=== PATIENT | female | born 1960 | race Caucasian/White ===

== ENCOUNTER → 2016-11-19 | Outpatient (CLI) | payer OTHER, BC ==
[~2016-11-19] VITALS: Ht 162.6 cm; Wt 79.0 kg
[~2016-11-19] MED LIST: ALPRAZOLAM 0.50.5 M1 PO; AMARYL4 MG PO; AMLODIPINE BESY10 MG PO; ASPIRIN325 PO; BIOTIN2500 MCG PO; CALCIUM 600 +1 EAC1 PO; CARAFATE 1 GM TA1 G1 PO; CEFDINIR300 MG PO; CRANBERRY200 MG PO; DRY EYE OMEGA1 EACH PO; Domperidone PO; FIBER GUMMIES1 EACH PO; FLEXERIL PO; FOLIC ACID 40400 MCG PO; GLUCOSAMINE CHONDROI PO; GLUCOSAMINE HC500 MG PO; HALCION0.25 MG PO; HYDROXYCHLOROQ200 M1 PO; IRON325 PO; LOSARTAN POTAS100 MG PO; METFORMIN HCL500 MG PO; METHADONE HCL 110 M1 PO; METHADONE HCL 110 MG PO; MIRALAX17 GM PO; MOVANTIK25 MG PO; OXYCODONE-ACET1 EAC2 PO; PERCOCET 10-321 EACH PO; PRAVACHOL20 MG PO; PRILOSEC20 MG PO; PROBIOTIC1 EAC1 PO; PROZAC20 MG PO; REGLAN10 MG PO; RESTASIS1 EACH OPHTHALMIC; ROPINIROLE HCL5 MG PO; SENNA PO; SPECTRAVITE SE1 EACH PO; SPECTRAVITE1 EAC1 PO; TRAVATAN Z2.5 ML OPHTHALMIC; VITAMIN B-12500 MCG PO; VITAMIN D 5050000 I1 PO; VITAMINC500 PO; VOLTAREN GEL 1100 G2
--- NOTE | ~2016-11-19 | HPC ---
[facility] [address] [address] PAIN MANAGEMENT CONSULTATION Name: ALEX VALENTIN Keesha Room #: REG [facility]#: [id number] Admission: 11/19/16 Attend Phys: Rehana Perkins MD Discharge: Date of : 60 Report #: [id number] THIS REPORT FOR: //name// CC: Rehana Aguirre MD DATE OF SERVICE: 11/19/2016 FOLLOWUP COMPLAINT: Things are going reasonably well. FOLLOWUP HISTORY: The patient is a 56-year-old female who has been followed in the pain clinic because of chronic pain involving the lumbar area. 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 She finds that her opioid medications are helpful and able her to engage in activities she would not be able to without their use. She continues to have pain and discomfort in the lower back, bilateral shoulders, knees, and joints in her hands. She rates her pain as a 6/10. She notes that there is a burning, soreness, tenderness and aching sensation present. Pain is exacerbated by walking, shopping, prolonged standing. Notes that her pain improves with use of ice packs, back brace and when lying on her left side with pillows popped underneath. PHYSICAL EXAMINATION: Blood pressure is 142/75, pulse 95, respiratory rate 14, room air saturation 95%. The patient's BMI is 29. She has not fallen since we saw her last. She states that she has taken her medications as prescribed. IMPRESSION: 1. Kyphoplasty in the recent past with improvement in her back pain. 2. Lumbar radicular pain secondary to failed back syndrome, stable with current medical regimen. 3. The patient feels stable regarding the gastrointestinal complaints that she had after an episode of Clostridium difficile. RECOMMENDATION: We will continue with her current medical regimen. A script for methadone 10 mg 1 p.o. t.i.d., Percocet had been written. The patient will call us if she has any problems with her medications. We would like to thank you for letting us participate in her care. We hope she continues to improve. <ELECTRONICALLY SIGNED> By: Rehana Perkins MD 12/07/16 1018 [id number] [id number] Rehana Perkins MD /nt
[2016-11-19 11:12] VITALS: BP 142/75
== END | disposition home or self-care (01) ==
LOC: PAIN 07:17
DX: M54.16 Radiculopathy, lumbar region (principal); G89.29 Other chronic pain; M96.1 Postlaminectomy syndrome, not elsewhere classified; Z98.890 Other specified postprocedural states; Z87.891 Personal history of nicotine dependence

== ENCOUNTER 2016-12-24 17:14 | Inpatient (IN) | payer OTHER, BC ==
[~2016-12-24] VITALS: Ht 162.6 cm; Wt 76.7 kg
--- NOTE | ~2016-12-24 | H ---
[facility] [place] [address] [address] [place] [address] HISTORY AND PHYSICAL Name: ALEX VALENTIN Keesha Room #: 447-P [facility] IN M.R.#: [id number] Admission: 12/24/16 Attend Phys: Yvan Aguirre MD Discharge: 12/27/16 Date of : 60 Report #: [id number] THIS REPORT FOR: //name// CC: Yvan Aguirre DATE OF SERVICE: 12/24/2016 ADDENDUM The note from 12/24/2016, the report number is [id number], Make addition of physical exam to this note. PHYSICAL EXAMINATION: GENERAL: The patient was awake. She was somewhat drowsy, but responsive to questions and commands. She was oriented to person, place and time. HEENT: Mucous membranes are moist. NECK: Supple, without adenopathy, thyromegaly or bruits. CHEST: Clear to auscultation. CARDIOVASCULAR: She has a regular rhythm without murmur. ABDOMEN: Soft, no masses. Bowel sounds are active. EXTREMITIES: Showed no edema. Pulses were intact. By: [id number] Yvan Aguirre MD /nt
--- NOTE | ~2016-12-24 | H ---
[facility] [place] [address] HISTORY AND PHYSICAL Name: BARBIEALEX L Room #: 447-P [facility] ..#: [id number] Admission: 12/24/16 Attend Phys: Yvan Aguirre MD Discharge: 12/27/16 Date of : 60 Report #: [id number] THIS REPORT FOR: //name// CC: Yvan Aguirre DATE OF SERVICE: 12/25/2016 CHIEF COMPLAINT: Hypoxia, back pain and left arm pain. HISTORY OF PRESENT ILLNESS: The patient is a 56-year-old female who was seen in the outpatient sitting for a kyphoplasty of her lumbar compression fracture after a fall. Post-procedure, she was somewhat hypoxic and sedated and anesthesiologist did not feel comfortable sending her home due to her sedation effect. She lives independently, did not have any support at home. The patient was therefore kept overnight for observation. She was placed on continuous oximetry. She does have home oxygen chronically. She did well overnight with no complications. Her status was stable for discharge to home on 12/25/2016. She will go home on her home medications of Plaquenil 200 mg a day, Flexeril 10 mg p.r.n., Pravachol 20 mg a day, amlodipine 5 mg b.i.d., losartan 50 mg b.i.d., aspirin 325 mg a day, Voltaren gel, methadone 10 mg t.i.d., oxycodone 10/325 p.r.n. pain, Prozac 40 mg daily, Xanax 0.5 mg t.i.d., calcium plus D daily, probiotic daily, senna daily, Carafate 1 gram q.i.d. She will be seen on a p.r.n. basis, activities as tolerated and she will resume her home oxygen that she currently has. <ELECTRONICALLY SIGNED> By: Yvan Aguirre MD 12/28/16 1407 1033 1136 Yvan Aguirre MD /nt
[2017-01-17] MEDS ORDERED: METHADONE HCL 110 MG PO (08:22)
[2017-01-17] MEDS ORDERED: PERCOCET 10-321 EACH PO (08:22)
== END 2016-12-27 16:46 | disposition home health service (06) | DRG 516 ==
LOC: 4S 17:14
DX: M48.56XA Collapsed vertebra, not elsewhere classified, lumbar region, initial encounter for fracture (principal); S42.302A Unspecified fracture of shaft of humerus, left arm, initial encounter for closed fracture; R09.02 Hypoxemia; G47.30 Sleep apnea, unspecified; W18.39XA Other fall on same level, initial encounter; Y93.89 Activity, other specified; Y92.89 Other specified places as the place of occurrence of the external cause; Y99.8 Other external cause status; Z88.1 Allergy status to other antibiotic agents; Z88.2 Allergy status to sulfonamides; Z88.8 Allergy status to other drugs, medicaments and biological substances; Z79.899 Other long term (current) drug therapy; Z28.21 Immunization not carried out because of patient refusal
CPT/HCPCS: 10100; 62110; 62900; 70005; 95113

== ENCOUNTER → 2017-01-17 | Outpatient (CLI) | payer OTHER, BC ==
[~2017-01-17] VITALS: Ht 162.6 cm; Wt 78.0 kg
--- NOTE | ~2017-01-17 | HPC ---
[facility] [address] [address] PAIN MANAGEMENT CONSULTATION Name: ALEX VALENTIN Keesha Room #: REG [facility]#: [id number] Admission: 01/17/17 Attend Phys: Rehana Perkins MD Discharge: Date of : 60 Report #: [id number] THIS REPORT FOR: //name// CC: Rehana Aguirre MD DATE OF SERVICE: 01/17/2017 FOLLOWUP COMPLAINT: "My arm is still healing. I have had some pain in my right calf." FOLLOWUP HISTORY: The patient is a 56-year-old female who has been followed in the pain clinic because of failed back syndrome and lumbar radiculopathy. As you may recall recently, she fell and fractured her left humerus. She continues to wear the sling with her arm in place. She states that it is improving. She is undergoing physical therapy to increase her range of motion. She has pain in the right lower leg. She has been walking with a cane. Note, she has noted increased pain for about 2 weeks. She has noted some swelling in her lower extremity. It is reddened as compared to the left side. She feels that the pain is pretty uncomfortable. She states that she is being seen by a vascular surgeon. She has some difficulty explaining what it is that he is going to do for her and what her problem is. PHYSICAL EXAMINATION: Blood pressure 124/69, pulse 96, respiratory rate 16, room air saturation 95%. The patient's height 5 feet 4 inches, weight 78 kilograms. BMI is 29.5. The patient has fallen in the last 3 months. She fell after getting entangled in a leash on her dog. She is having some difficulty walking because of increased pain in the right gastrocnemius muscle. She notes increased pain and discomfort to light touch along the lateral wall of her calf. She has some increased pain in the right popliteal area compared to that on the right. She has some redness in the lower extremity to the mid portion of her calf. There is +2 pitting edema at the level of her ankle. IMPRESSION: 1. Pain in the right leg lower extremity with increased swelling, increased pain, difficulty ambulating, some soreness in the right popliteal area. 2. Left humeral fracture, nondisplaced and healing. The patient is undergoing physical therapy. 3. Swelling in the right lower extremity, need to rule out deep venous thrombosis. The patient will be taken to the Emergency Room for evaluation. RECOMMENDATIONS: A script for her medications of oxycodone 10/325 one p.o. q. 6 hours p.r.n. pain and methadone 10 mg 1 p.o. t.i.d. [place] [address] PAIN MANAGEMENT CONSULTATION Name: ALEX VALENTIN [facility] [id number] Admission: 01/17/17 Attend Phys: Rehana Perkins MD Discharge: Date of : 60 Report #: [id number] call us if she has any problems with her medications. We would like to thank you for letting us participate in her care. We hope she continues to improve. By: 1418 1525 Rehana Perkins MD /nt
== END ==
LOC: PAIN 06:15
DX: M54.16 Radiculopathy, lumbar region (principal); E11.9 Type 2 diabetes mellitus without complications; I10 Essential (primary) hypertension; G43.909 Migraine, unspecified, not intractable, without status migrainosus; F41.8 Other specified anxiety disorders; F32.9 Major depressive disorder, single episode, unspecified; E78.5 Hyperlipidemia, unspecified; Z90.710 Acquired absence of both cervix and uterus; Z86.73 Personal history of transient ischemic attack (TIA), and cerebral infarction without residual deficits; Z79.4 Long term (current) use of insulin; Z79.82 Long term (current) use of aspirin; Z87.891 Personal history of nicotine dependence; Z85.828 Personal history of other malignant neoplasm of skin; Z85.820 Personal history of malignant melanoma of skin

== ENCOUNTER → 2017-02-25 | Outpatient (CLI) | payer OTHER, BC ==
[~2017-02-25] VITALS: Ht 162.6 cm; Wt 74.4 kg
[~2017-02-25] MED LIST changes: +MEDROLDOSEPACK PO
--- NOTE | ~2017-02-25 | HPC ---
[facility] [address] [address] PAIN MANAGEMENT CONSULTATION Name: ALEX VALENTIN Keesha [id number] Admission: 02/25/17 Attend Phys: Rehana Perkins MD Discharge: Date of : 60 Report #: [id number] THIS REPORT FOR: //name// CC: Rehana Aguirre MD DATE OF SERVICE: 02/25/2017 FOLLOWUP COMPLAINT: Here for medication renewal. FOLLOWUP HISTORY: The patient is a 56-year-old female who has been followed in the pain clinic because of lumbar radicular pain secondary to failed back syndrome. She also suffers from left arm pain status post left humeral fracture. It was nondisplaced. She has now been able to take off the arm support. She is trying to increase its range of motion. It is somewhat limited in relation to the contralateral side. She rates her pain as a 6-7 today. She continues to have some pain in the cervical spine left side as well as in the low back area. IMPRESSION: 1. L4-L5 fusion 2008 with failed back syndrome. 2. History of compression fracture status post lifting a parcel at home. The patient has undergone kyphoplasty at the L3 area. 3. Left humeral fracture, improved, trying to increase range of motion. 4. History of migraines, history of anxiety/depression, use of tobacco. 5. History of arthritis, treated by a shower doors and panels fabricator. RECOMMENDATION: We discussed treatment options with the patient. At this juncture, she has noted some worsening of her pain in the hands as well as generalized pain in her joints. She may see her shower doors and panels fabricator in the near future. We will give her a Medrol Dosepak to take in the interim if she should feel that is necessary. A script for her medications had been written. The patient has been given information regarding [facility]. She will call us if she has any problems with her medications. We would like to thank you for letting us participate in her care. We hope she continues to improve. <ELECTRONICALLY SIGNED> By: Rehana Perkins MD 03/04/17 0851 1236 [id number] Rehana Perkins MD /nt
[2017-02-25 11:17] VITALS: BP 146/77
== END | disposition home or self-care (01) ==
LOC: PAIN 07:23
DX: M54.16 Radiculopathy, lumbar region (principal); G43.909 Migraine, unspecified, not intractable, without status migrainosus; F41.9 Anxiety disorder, unspecified; F32.9 Major depressive disorder, single episode, unspecified; Z87.891 Personal history of nicotine dependence; M19.90 Unspecified osteoarthritis, unspecified site

== ENCOUNTER → 2017-03-30 | Outpatient (CLI) | payer OTHER, BC ==
[~2017-03-30] VITALS: Ht 162.6 cm; Wt 74.6 kg
--- NOTE | ~2017-03-30 | HPC ---
[facility] [place] [address] [address] PAIN MANAGEMENT CONSULTATION Name: BARBIEALEX Keesha Room #: [facility] [id number] Admission: 03/30/17 Attend Phys: Rehana Perkins MD Discharge: Date of : 60 Report #: [id number] THIS REPORT FOR: //name// CC: Rehana Aguirre MD DATE OF SERVICE: 03/30/2017 DATE OF SERVICE: 03/30/2017. PRIMARY CARE PHYSICIAN: Yvan Aguirre MD FOLLOWUP COMPLAINT: The pain improved after the Medrol Dosepak. FOLLOWUP HISTORY: The patient is a 56-year-old female who has been followed in the pain clinic because of chronic pain. She suffered from lumbar radicular pain secondary to failed back syndrome. She also is recuperating from a left shoulder humeral fracture. She notes that it continues to improve. She continues to try to move it through its range of motions. She used a Medrol Dosepak at the last visit. She has noted some improvement in her pain and discomfort. She rates her discomfort as 4/10 at this juncture. Notes the pain walking, standing for long periods of time can still be problematic. She finds that ice packs and wearing a back brace have been helpful. She has difficulty lying on her left side secondary to fracture of the left humeral shaft. She feels that her medications continue to be helpful. She has not had any side effects from the medications. She feels that they enable her to continue to engage in activities of daily living, she without them. She states that her medications are kept in a guarded area. IMPRESSION: 1. Lumbar fusion L4-L5 in 2008, now with failed back syndrome. 2. History of compression fracture, status post lifting up a parcel at home. The patient has undergone a kyphoplasty at the L3 area. 3. Left humeral fracture, continues to improve. The patient continues to increase its range of motion. 4. History of migraine, anxiety/depression and continued tobacco use. 5. 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 RECOMMENDATIONS: We will continue with her current medical regimen. We have discussed the need for compliance with the new CDC recommendations. We will decrease her methadone from 10 mg p.o. t.i.d. to 10 mg b.i.d. We will continue with oxycodone 10 mg 1 p.o. q.i.d. The patient will call us if she has any problems with her medications. [address] [address] PAIN MANAGEMENT CONSULTATION Name: BARBIEALEX Keesha Room #: REG [facility]#: [id number] Admission: 03/30/17 Attend Phys: Rehana Perkins MD Discharge: Date of : 60 Report #: [id number] We would like to thank you for letting us participate in her care. We hope she continues to improve. By: 1113 1753 MD paula Gold
[2017-03-30 10:16] VITALS: BP 134/79
== END ==
LOC: PAIN 06:15
DX: M54.16 Radiculopathy, lumbar region (principal); G43.909 Migraine, unspecified, not intractable, without status migrainosus; F41.9 Anxiety disorder, unspecified; F32.9 Major depressive disorder, single episode, unspecified; M19.90 Unspecified osteoarthritis, unspecified site; I10 Essential (primary) hypertension; Z87.891 Personal history of nicotine dependence

== ENCOUNTER → 2017-04-27 | Outpatient (CLI) | payer OTHER, BC ==
[~2017-04-27] VITALS: Ht 160 cm; Wt 75.2 kg
[~2017-04-27] MED LIST changes: +FOSAMAX 70 MG T70 MG PO
--- NOTE | ~2017-04-27 | HPC ---
[facility] [address] [place] [address] PAIN MANAGEMENT CONSULTATION Name: ALEX VALENTIN Keesha Room #: REG [facility].#: [id number] Admission: 04/27/17 Attend Phys: Rehana Perkins MD Discharge: Date of : 60 Report #: [id number] THIS REPORT FOR: //name// CC: Rehana Aguirre MD DATE OF SERVICE: 04/27/2017 FOLLOWUP COMPLAINT: Here for medication refill and pain in the low back, left side. FOLLOWUP HISTORY: The patient is a 56-year-old female who has been followed in the pain clinic because of chronic pain. As you recall, she has been experiencing pain and discomfort in the low back, left side; knees and had some GI complaints as well. At this juncture, she rates her pain as a 5/10. She notes that the pain is exacerbated by the usual activities of daily living, walking and standing for long periods of time, and finds that her medications are helpful. She also uses ice packs to the affected area. She feels that the methadone and oxycodone enable her to engage in activities she would not be able to without their use. She denies having any problems with her social life. She would like to have her medications renewed. She keeps her medications in a guarded environment. PHYSICAL EXAMINATION: Blood pressure is 138/87, pulse 82, respiratory rate 20, room air saturation 99, height 5 feet 3 inches, weight 165 pounds, BMI is 29. The patient has not fallen since we saw her last. Her arm continues to heal from the fracture. She appears to have normal speech. Her outlook seems positive. IMPRESSION: 1. History of lumbar radicular pain with failed back syndrome, status post surgery in 2008. 2. History of compression fractures in lower back. 3. History left humerus fracture, stable. 4. History of migraines/anxiety/depression, continues to smoke cigarettes and has been encouraged to stop. 5. Rheumatoid arthritis. RECOMMENDATIONS: We will proceed with renewal of the patient's current medical regimen of methadone and oxycodone. She will call us if she has any problems [facility] [address] [place] [address] PAIN MANAGEMENT CONSULTATION Name: ALEX VALENTIN Room #: REG [facility]#: [id number] Admission: 04/27/17 Attend Phys: Rehana Perkins MD Discharge: Date of : 60 Report #: [id number] with her medications. We would like to thank you for letting us participate in her care. We hope she continues to improve. By: 0825 2134 Rehana Perkins MD /
[2017-04-27 09:17] VITALS: BP 138/87
== END | disposition home or self-care (01) ==
LOC: PAIN 06:48
DX: M54.5 Low back pain (principal); M54.16 Radiculopathy, lumbar region; G43.909 Migraine, unspecified, not intractable, without status migrainosus; F41.9 Anxiety disorder, unspecified; F32.9 Major depressive disorder, single episode, unspecified; F17.210 Nicotine dependence, cigarettes, uncomplicated; M06.9 Rheumatoid arthritis, unspecified; Z87.81 Personal history of (healed) traumatic fracture

== ENCOUNTER → 2017-05-25 | Outpatient (CLI) | payer OTHER, BC ==
[~2017-05-25] VITALS: Ht 160 cm; Wt 74.4 kg
[~2017-05-25] MED LIST changes: -FOSAMAX 70 MG T70 MG PO
--- NOTE | ~2017-05-25 | HPC ---
[facility] [address] [place] [address] PAIN MANAGEMENT CONSULTATION Name: ALEX VALENTIN Keesha Room #: REG [facility]#: [id number] Admission: 05/25/17 Attend Phys: Rehana Perkins MD Discharge: Date of : 60 Report #: [id number] THIS REPORT FOR: //name// CC: Rehana Aguirre MD DATE OF SERVICE: 05/25/2017 FOLLOWUP COMPLAINT: Here for medication renewal. FOLLOWUP HISTORY: The patient is a 56-year-old female who has been followed in the pain clinic because of chronic pain. She has had a back fusion at L4-L5 in 2008 and suffers from failed back syndrome. She also has had a compression fracture recently in the L3 area. She notes some problems with easy bruising on her forearms, left and right. This is oftentimes exacerbated by her dog, which jumps up on to her arms. Feels that her migraine headaches are reasonably controlled at this juncture with her current medical regimen. She keeps her medications in a controlled environment. PHYSICAL EXAMINATION: Blood pressure is 163/93, pulse 93, respiratory rate 16, room air saturation 96%. Height 5 feet 3 inches, weight 74 kilograms. BMI is 29.1. The patient has some bruises on her left and right forearm. We have discussed possibility of getting some sweat bands like the athletes used to place on their forearms. Therefore, when her dog jumps upon there, she may find that she will get less trauma to her forearms given that her skin is somewhat thinned. IMPRESSION: 1. Lumbar fusion at L4-L5 in 2008, with failed back syndrome. 2. Compression fracture of the back at L3-L4 this year. 3. Left humerus fracture, left arm stable and range of motion continues to increase, patient is not wearing a brace of any sort. 4. History of migraines/anxiety/depression, continues to use tobacco. 5. 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 RECOMMENDATIONS: We will continue with her current medication regimen and a script for methadone 10 mg 1 p.o. t.i.d. to b.i.d. has been provided. Oxycodone 10 mg 1 p.o. q.i.d. has been given. The patient will call us if she has any problems with her medications. We would like to thank you for letting us participate in her care. We hope she continues to improve. By: 1624 1756 Rehana Perkins MD /chapo
[2017-05-25 10:16] VITALS: BP 163/93
== END | disposition home or self-care (01) ==
LOC: PAIN 07:27
DX: M96.1 Postlaminectomy syndrome, not elsewhere classified (principal); G89.29 Other chronic pain; S32.030D Wedge compression fracture of third lumbar vertebra, subsequent encounter for fracture with routine healing; S42.212D Unspecified displaced fracture of surgical neck of left humerus, subsequent encounter for fracture with routine healing; I73.9 Peripheral vascular disease, unspecified; M19.90 Unspecified osteoarthritis, unspecified site; G43.909 Migraine, unspecified, not intractable, without status migrainosus; F32.89 Other specified depressive episodes; F41.8 Other specified anxiety disorders; F17.210 Nicotine dependence, cigarettes, uncomplicated; Z98.890 Other specified postprocedural states; X58.XXXD Exposure to other specified factors, subsequent encounter; Z88.2 Allergy status to sulfonamides; Z88.8 Allergy status to other drugs, medicaments and biological substances; Z79.899 Other long term (current) drug therapy

== ENCOUNTER → 2017-06-29 | Outpatient (CLI) | payer OTHER, BC ==
[~2017-06-29] VITALS: Ht 160 cm; Wt 74.8 kg
[~2017-06-29] MED LIST changes: +FOSAMAX 70 MG T70 MG PO
--- NOTE | ~2017-06-29 | HPC ---
[facility] [address] [address] PAIN MANAGEMENT CONSULTATION Name: BARBIEALEX L Room #: REG [facility]#: [id number] Admission: 06/29/17 Attend Phys: Rehana Perkins MD Discharge: Date of : 60 Report #: [id number] THIS REPORT FOR: //name// CC: Rehana Aguirre DATE OF SERVICE: 06/29/2017 FOLLOWUP HISTORY: The patient is a 56-year-old female who has been followed in the pain clinic because of chronic low back pain. 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 She continues to have pain, which is quite problematic. She seems to be recovering well from her left humerus fracture. She is now having problems with her GI tract. As you recall, she had C. difficile problems in the past. She has some problems with possibility of a urinary tract infection. She has been given some antibiotics for this. She states that she is taking probiotics daily. She is not feeling too well today. She has recently seen her primary care physician. PHYSICAL EXAMINATION: Blood pressure 136/80, pulse 95, respiratory rate 20, room air saturation 97%. Height 5 feet 3 inches, weight 164 pounds, BMI is 29. She has not fallen since we saw her last. She does feel that she is having some GI disturbances. She has been treated for her urinary tract infection/GI track problems. IMPRESSION: 1. Gastrointestinal discomfort, following up with her primary physician. 2. Lumbar fusion L4-5 in 2008 with failed back syndrome. 3. History of compression fractures in the lower portion of her back this year. 4. Left humerus fracture, stable. 5. History of migraine/anxiety/depression. Continue to use tobacco. 6. Arthritis treated by her transportation maintenance operator. RECOMMENDATIONS: We have discussed her treatment options. We will continue with her use of methadone as well as oxycodone. She will follow up with her primary physician. If she notes any worsening of her condition, she should seek medical treatment given that she had C. difficile problems in the past. We would like to thank you for letting us participate in her care. We hope she continues to improve. By: 1322 0541 Rehana Perkins MD /
[2017-06-29 10:20] VITALS: BP 136/80
== END | disposition home or self-care (01) ==
LOC: PAIN 07:22
DX: M43.27 Fusion of spine, lumbosacral region (principal); Z87.81 Personal history of (healed) traumatic fracture; G43.909 Migraine, unspecified, not intractable, without status migrainosus; F41.9 Anxiety disorder, unspecified; F32.9 Major depressive disorder, single episode, unspecified; F17.290 Nicotine dependence, other tobacco product, uncomplicated; M19.90 Unspecified osteoarthritis, unspecified site

== ENCOUNTER → 2017-08-12 | Outpatient (CLI) | payer OTHER, BC ==
[~2017-08-12] VITALS: Ht 160 cm; Wt 76.4 kg
--- NOTE | ~2017-08-12 | HPC ---
[facility] [address] [address] PAIN MANAGEMENT CONSULTATION Name: BARBIEALEX L Room #: REG [facility]#: [id number] Admission: 08/12/17 Attend Phys: Rehana Perkins MD Discharge: Date of : 60 Report #: [id number] THIS REPORT FOR: //name// CC: Rehana Aguirre MD DATE OF SERVICE: 08/12/2017 FOLLOWUP COMPLAINT: "I have hurt my right leg and hit it on a bumper. I got 10 stiches." FOLLOWUP HISTORY: The patient is a 56-year-old female who has been followed in the pain clinic. As you recall, she has had unfortunate few months. She walked around her car. She hit her leg right in the area of the tibia, a cut was noted. She states she received 10 stitches in this area. She has also been having some problems and been placed on antibiotics. She has had some urinary tract infection. She feels overall things are going reasonably well, but has some concerns with the use of antibiotics. As you recall, she suffered from Clostridium difficile. PHYSICAL EXAMINATION: Blood pressure 156/76, pulse 94, respiratory rate 16, room air saturation 97%. Height 5 feet 3 inches, weight 168 pounds, BMI is 29. The patient has a gauze over the right anterior tibial area. The patient states that there are stitches underneath. She has a healing lesion about 3 inches below this area. She states that she has had some stitches in that area as well and it is heal reasonably well. There are some crusts in this area. She has a number of Band-Aids on her arms. As you recall, she has significantly thin skin and her dog jumps up on her as well causing skin blemishes. IMPRESSION: 1. Lumbar radiculopathy L4-L5 secondary to failed back syndrome. 2. New lesion in the right anterior tibial area. Status post 10 stitches placed. 3. Left humerus fracture, stable. 4. History of migraine/anxiety/depression, continues to use tobacco. 5. Osteoarthritis, treated by her clock repairer. 6. Urinary tract infection, treated with antibiotics. The patient will monitor her systems for possible Clostridium difficile symptomatology. RECOMMENDATION: We will renew her medications. A script for Percocet and methadone have been written. She will continue to monitor the area of the new lesion on her anterior tibial area. We explained that if it starts to look problematic, she should seek medical attention. [place] [address] PAIN MANAGEMENT CONSULTATION Name: ALEX VALENTIN Room #: REG [facility] Angelica#: [id number] Admission: 08/12/17 Attend Phys: Rehana Perkins MD Discharge: Date of : 60 Report #: [id number] We would like to thank you for letting us participate in her care. We hope she continues to improve. By: 1428 0343 Rehana Perkins MD /VIVIENNE
[2017-08-12 09:16] VITALS: BP 156/76
== END | disposition home or self-care (01) ==
LOC: PAIN 08-05 07:23
DX: M54.16 Radiculopathy, lumbar region (principal); M96.1 Postlaminectomy syndrome, not elsewhere classified; R22.41 Localized swelling, mass and lump, right lower limb; G43.909 Migraine, unspecified, not intractable, without status migrainosus; F41.8 Other specified anxiety disorders; F32.89 Other specified depressive episodes; M19.90 Unspecified osteoarthritis, unspecified site; Z87.81 Personal history of (healed) traumatic fracture; Z87.718 Personal history of other specified (corrected) congenital malformations of genitourinary system; Z87.891 Personal history of nicotine dependence; Z88.2 Allergy status to sulfonamides

== ENCOUNTER → 2017-10-14 | Outpatient (CLI) | payer OTHER, BC ==
[~2017-10-14] VITALS: Ht 160 cm; Wt 73.5 kg
--- NOTE | ~2017-10-14 | HPC ---
[facility] [address] [place] [address] PAIN MANAGEMENT CONSULTATION Name: ALEX VALENTIN Room #: REG [facility].#: [id number] Admission: 10/14/17 Attend Phys: Rehana Perkins MD Discharge: Date of : 60 Report #: [id number] THIS REPORT FOR: //name// CC: Rehana Aguirre MD DATE OF SERVICE: 10/14/2017 FOLLOWUP COMPLAINT: Here for medications. FOLLOWUP HISTORY: The patient is a 57-year-old female who has been followed in the pain clinic because of chronic pain and is on a complex medical regimen. She suffers from lumbar radiculopathy. 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 Continues to have pain, which she rates as a 4 today. It involves her low back area with pain radiating down into her left leg. She also has some chronic neck pain. Activities such as walking and engaging in daily activities can increase her pain and discomfort. She feels that her current medications are helpful. She keeps her medications in a controlled environment. She states that the medications are having no adverse effects on her. States that she continues to follow with her psychiatrist/psychologist. PHYSICAL EXAMINATION: GENERAL: The patient is alert. No evidence of oversedation. VITAL SIGNS: Blood pressure 149/73, pulse 109, respiratory rate 19, room air saturation 96%, height 5 feet 3 inches, weight 162 pounds. MEDICATIONS: Current medication regimen is methadone 10 mg 1 p.o. b.i.d., Fosamax 70 mg, Prozac, multivitamins, Senokot, calcium, biotin 2500 mcg, probiotic, vitamin C, losartan, amlodipine 10 mg, alprazolam 0.5 mg t.i.d., Carafate 1 gram, Prilosec 25 mg, Plaquenil 200 mg b.i.d., Voltaren gel applied to hands, Pravachol 20 mg. IMPRESSION: 1. 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 2. Left humeral fracture, which is stable and healed. 3. History of migraine/anxiety/depression. 4. Consultation regarding decreasing use of tobacco. 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 A script for her medications for this month have been written. Oxycodone 10 mg 1 p.o. q.i.d. and methadone 10 [place] [address] PAIN MANAGEMENT CONSULTATION Name: BARBIEALEX NATHANAEL [facility]: [facility] [id number] Admission: 10/14/17 Attend Phys: Rehana Perkins MD Discharge: Date of : 60 Report #: [id number] to thank you for letting us participate in her care. We hope she continues to improve. <ELECTRONICALLY SIGNED> By: Rehana Perkins MD 10/20/17 0945 0913 1703 Rehana Perkins MD /[facility]
[2017-10-14 11:12] VITALS: BP 149/73
== END ==
LOC: PAIN 07:00
DX: G89.29 Other chronic pain (principal); M54.16 Radiculopathy, lumbar region; Z79.899 Other long term (current) drug therapy

== ENCOUNTER → 2017-11-11 | Outpatient (CLI) | payer OTHER, BC ==
[~2017-11-11] VITALS: Ht 160 cm; Wt 73.0 kg
[~2017-11-11] MED LIST changes: +ASPIR 8181 MG PO; +BIOTIN1000 MCG PO; +CENTRUM SILVER1 EAC4 PO; +CYCLOBENZAPRINE10 MG PO; +FIBER500 MG PO; +FOLIC ACID1 MG PO; +KENALOG-1010 MG/ML; +MUCINEX D TABL1 EACH PO; +NORFLEX100 MG PO; +PERCOCET 10-321 EAC1 PO; +PRILOSEC 20 MG20 MG PO; -PRILOSEC20 MG PO; +REQUIP5 MG PO; -SENNA PO; +SENOKOT-S1 TA2 PO; +TRAVATAN Z5 ML; +TRIAZOLAM0.25 MG PO; -VOLTAREN GEL 1100 G2; +VOLTAREN GEL 1100 G2 TOP; +ZINC50 MG PO
--- NOTE | ~2017-11-11 | HPC ---
[facility] [address] [place] [address] PAIN MANAGEMENT CONSULTATION Name: BARIBEALEX NATHANAEL [facility] [id number] Admission: 11/11/17 Attend Phys: Rehana Perkins MD Discharge: Date of : 60 Report #: [id number] THIS REPORT FOR: //name// CC: Rehana Aguirre MD DATE OF SERVICE: 11/11/2017 FOLLOWUP COMPLAINT: "I have got some pain in my back, which was radiating around my side." FOLLOWUP HISTORY: The patient is a 57-year-old female who has been followed in the pain clinic because of chronic pain involving her back with lumbar radicular pain secondary to failed back syndrome. She also has had problems with compression fractures. She recently noted some worsening of pain and discomfort in her back. She was wrapping Lacy presents. She had some Tupperware items. Had material in there. She lifted this. She noted some pain and discomfort in her back. She has been experiencing pain which has radiated around the right side of her back into the left hip area. She denies any pain radiating down into the legs. She feels that she may have lifted too much. She went to see her primary physician. She was given a Medrol Dosepak. She feels that the pain improves somewhat after taking the Medrol Dosepak. She still is having some pain and discomfort when she goes from a lying to a sitting position. Bending over to reach and picker and packer something off the floor causes more pain and discomfort in the low back area. She is having pain and discomfort in her right shoulder as well. She has noticed that the weather has changed. The temperature today is 5 degrees. She has noted some increase in pain and discomfort in generalized area because of her arthritis. She feels that her current medications of opioids and muscle relaxants are still helpful and beneficial. States that she continues to be followed by her psychiatrist/psychologist. She feels that her mood is stable. PHYSICAL EXAMINATION: HEENT: Unremarkable. NECK: Without adenopathy. HEART: Regular rate. ABDOMEN: Nontender. BACK: Examination of the back reveals some midline and paraspinous tenderness in the L4-L5 area. The patient notes some soreness in the area over the scar tissue in the lumbar area. Palpation in the right posterior superior iliac spine area near the gluteus sandra and insertion of the latissimus dorsi reproduce a significant component of the patient's pain and discomfort in the right low back area. There is no step-off changes in the low back area. She is not having radiating pain in any dermatomal distribution at this juncture. Pain is more focal in the posterior superior iliac spine area. [address] [address] PAIN MANAGEMENT CONSULTATION Name: ALEX VALENTIN [facility] [id number] Admission: 11/11/17 Attend Phys: Rehana Perkins MD Discharge: Date of : 60 Report #: [id number] SKIN: The patient has noted some improvement in her skin. She has less areas of bruising on her arms and forearms. She still has Band-Aids covering this area. States that the old scars are becoming less prominent, but is noticing whitening of this area secondary to scar tissue. VITAL SIGNS: Blood pressure 134/79, pulse 107, respiratory rate 14, room air saturation 97%. Height 5 feet 3 inches, weight 161 pounds, BMI is 28. The patient appears to be in a stable mood. Response and interaction appear normal. Oriented x 3. CURRENT MEDICATIONS: Methadone 10 mg 1 p.o. b.i.d., Fosamax 70 mg, Prozac, multivitamins, Senokot, calcium, biotin 2500 mcg, probiotics, vitamin C, losartan, amlodipine 10 mg, alprazolam 0.5 mg t.i.d., Carafate 1 gram, 25 mg, Plaquenil 200 mg b.i.d., Voltaren gel to be applied to her hands, Pravachol 20 mg. IMPRESSION: 1. 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 2. Pain of a myofascial nature in the right posterior superior iliac spine area. We will consider a trigger point injection. The patient states that she is going to have injections in her knee in the next week or so. We will postpone injecting her back with steroids at this juncture. History of migraine/anxiety/depression - stable. 3. The patient consulted with regarding decreasing use of tobacco again, at this visit. RECOMMENDATIONS: We will continue with the patient's current medical regimen. A script for her medications have been renewed for oxycodone and methadone. She will return to the pain clinic in the future with possibility of a trigger point injection. She will undergo injection in her knees in the next week or so. If her pain persists, we would then consider the possibility of injection of the trigger points in her back. She complained of pain and discomfort. She has not fallen. Does not appear that her pain is from a new compression fracture at this juncture. We would like to thank you for letting us participate in her care. We hope she continues to improve. <ELECTRONICALLY SIGNED> By: Rehana Perkins MD 12/02/17 1332 [id number] [id number] Rehana Perkins MD /[facility]
[2017-11-11 11:17] VITALS: BP 134/79
== END ==
LOC: PAIN 06:56
DX: G89.29 Other chronic pain (principal); M54.9 Dorsalgia, unspecified; M54.5 Low back pain; F41.9 Anxiety disorder, unspecified; F32.9 Major depressive disorder, single episode, unspecified; G43.909 Migraine, unspecified, not intractable, without status migrainosus

== ENCOUNTER → 2017-12-23 | Outpatient (CLI) | payer OTHER, BC ==
[~2017-12-23] VITALS: Ht 160 cm; Wt 73.5 kg
--- NOTE | ~2017-12-23 | HPC ---
[facility] [place] [address] PAIN MANAGEMENT CONSULTATION Name: BARBIEALEX NATHANAEL [facility]: [facility]#: [id number] Admission: 12/23/17 Attend Phys: Rehana Perkins MD Discharge: Date of : 60 Report #: [id number] THIS REPORT FOR: //name// CC: Rehana Aguirre MD DATE OF SERVICE: 12/23/2017 FOLLOWUP COMPLAINT: Pain in the lower back, neck as well as pain down into the joints from rheumatoid arthritis and osteoarthritis. FOLLOWUP HISTORY: The patient is a 57-year-old female, who has been followed in the pain clinic. She has history of lumbar radiculopathy, status post failed back syndrome. She also continues to have pain and discomfort in her back and in the number of joints. She has been experiencing pain that is radiating down into her low back and involving her left hip area. Denies any real changes in her pain. No new trauma since we saw her last. She feels that her medications continue to be helpful. She feels that the medications are working reasonably well. She is not having any problems with mentation. She states that she keeps her medications in a guarded area. Continues to follow up with her psychologist/psychiatrist. Feels overall the things are going reasonably well. PHYSICAL EXAMINATION: HEENT: The patient is normocephalic, atraumatic. Extraocular eye muscles intact. No complaint of nasal congestion. Affect appears stable. HEART: Regular rate. ABDOMEN: No complaint of abdominal discomfort. The patient continues to have some pain and discomfort in the midline area and paraspinous muscle area in the L4-L5. Has some discomfort in the right posterior superior iliac spine areas. SKIN: The patient continues to wear bandages on her forearms. Feels that she is having fewer areas of breakdown. Does note some slight tremor activity in her hands. PAIN CLINIC ASSESSMENT: 1. The patient has history of osteoarthritis, has history of rheumatoid arthritis involving the left upper extremity, right lower extremity, and right upper extremity. 2. Height 5 foot 3inches, weight 162 pounds, BMI is 28. 3. Vital Signs: Blood pressure 138/85, pulse 80, respiratory rate 16, room air saturation 97. 4. Pain intensity, 7/10. 5. Fall risk, the patient fell over her dog getting out of bed about 3 weeks ago. She banged up her knee. The patient states that her knee abrasion has improved. Less exudate is noted. Overall, feels that this is getting better. Generally does not have need for walking assistance. [address] [address] PAIN MANAGEMENT CONSULTATION Name: BARBIEALEX LEE Room #: REG [facility]#: [id number] Admission: 12/23/17 Attend Phys: Rehana Perkins MD Discharge: Date of : 60 Report #: [id number] 6. The patient denies use of blood thinners. 7. The patient is being treated for hypertension. 8. Opioid therapy greater than 6 weeks. The patient has signed a contract on 12/22/2016 with our pain clinic. 9. Risk assessment tool is rated at 2, which is low functional assessment tool. 10. Recreational drug use. The patient denies use of recreational drugs. Tobacco use, smoked 20 years, one half pack a day, quit in 2004. Denies use of alcoholic beverages. MEDICATIONS: Current medications were reviewed. They include methadone 10 mg 1 p.o. b.i.d., Fosamax 70 mg, Prozac 20 mg, multivitamins, Senokot, calcium, biotin 2500 mcg, probiotics, vitamin C, losartan 100 mg, amlodipine 10 mg, alprazolam 0.5 mg t.i.d., Carafate 1 g, Plaquenil 200 mg b.i.d., Voltaren gel to apply to her hands, and Pravachol 20 mg. IMPRESSION: 1. 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 2. Myofascial pain in the right posterior iliac spine area. May consider trigger point injection in the future. 3. Knee pain. The patient has undergone knee injections. 4. Migraine headaches. 5. Anxiety. 6. Depression -- stable. 7. I have discussed cessation of tobacco again with the patient. 8. Hypertension. 9. Arthritis. RECOMMENDATIONS: We will continue with the patient's current medical regimen. She has been encouraged to stop smoking. States that her medications continue to be helpful. She is having no problems with mentation. She is taking the medication as prescribed. She states that she keeps her medication in a guarded area. We would like to thank you for letting us participate in her care. We hope she continues to improve. <ELECTRONICALLY SIGNED> By: Rehana Perkins MD 01/11/18 1434 0858 1800 Rehana Perkins MD /[facility]
[2017-12-23 10:33] VITALS: BP 138/85
== END ==
LOC: PAIN 12-14 06:44
DX: M54.16 Radiculopathy, lumbar region (principal); M53.3 Sacrococcygeal disorders, not elsewhere classified; G43.909 Migraine, unspecified, not intractable, without status migrainosus; F41.9 Anxiety disorder, unspecified; F32.9 Major depressive disorder, single episode, unspecified; I10 Essential (primary) hypertension; M19.90 Unspecified osteoarthritis, unspecified site; M25.569 Pain in unspecified knee; Z79.899 Other long term (current) drug therapy

== ENCOUNTER → 2017-12-30 | Outpatient (CLI) | payer OTHER, BC | LOC: RAD 15:49 | DX: M47.894 Other spondylosis, thoracic region (principal); M47.892 Other spondylosis, cervical region; K44.9 Diaphragmatic hernia without obstruction or gangrene; R07.9 Chest pain, unspecified; M54.2 Cervicalgia ==

== ENCOUNTER 2018-01-05 14:18 | Emergency (ER) | payer OTHER, BC ==
[~2018-01-05] VITALS: Ht 157.5 cm; Wt 73.5 kg
[~2018-01-05 14:18] MED LIST changes: -BIOTIN1000 MCG PO; -CENTRUM SILVER1 EAC4 PO; -FIBER500 MG PO; -FOLIC ACID1 MG PO; -KENALOG-1010 MG/ML; -MUCINEX D TABL1 EACH PO; -NORFLEX100 MG PO; -PERCOCET 10-321 EAC1 PO; -REQUIP5 MG PO; -TRAVATAN Z5 ML; -TRIAZOLAM0.25 MG PO; -ZINC50 MG PO
[2018-01-05 14:20] VITALS: BP 146/49
[2018-01-05] MEDS ORDERED: REQUIP5 MG PO (15:29)
[2018-01-05] MEDS ORDERED: TRIAZOLAM0.25 MG PO (15:30)
[2018-01-05] MEDS ORDERED: ASPIR 8181 MG PO (15:32)
[2018-01-05] MEDS ORDERED: RESTASIS1 EACH OPHTHALMIC (15:33)
[2018-01-05] MEDS ORDERED: TRAVATAN Z5 ML (15:33)
[2018-01-05] MEDS ORDERED: KENALOG-1010 MG/ML (15:34)
[2018-01-05] MEDS ORDERED: NORFLEX100 MG PO (16:24)
[2018-01-20] MEDS ORDERED: PERCOCET 10-321 EACH PO (10:05)
[2018-01-20] MEDS ORDERED: NORFLEX100 MG PO (10:05)
[2018-01-20] MEDS ORDERED: FLEXERIL PO ×2 (11:25→11:43)
[2018-01-20] MEDS ORDERED: METHADONE HCL 110 M1 PO ×2 (11:38→11:43)
[2018-02-17] MEDS ORDERED: PERCOCET 10-321 EACH PO (11:02)
[2018-02-17] MEDS ORDERED: METHADONE HCL 110 M1 PO (11:02)
[2018-02-17] MEDS ORDERED: FLEXERIL PO (11:02)
[2018-03-24] MEDS ORDERED: PERCOCET 10-321 EACH PO (11:10)
[2018-03-24] MEDS ORDERED: METHADONE HCL 110 M1 PO (11:10)
[2018-04-26] MEDS ORDERED: PERCOCET 10-321 EACH PO ×2 (08:25→10:03)
[2018-04-26] MEDS ORDERED: METHADONE HCL 110 M1 PO ×2 (08:25→10:03)
[2018-04-26] MEDS ORDERED: FLEXERIL PO ×2 (09:28→10:03)
[2018-05-24] MEDS ORDERED: PERCOCET 10-321 EACH PO (08:06)
[2018-05-24] MEDS ORDERED: METHADONE HCL 110 M1 PO (08:06)
[2018-05-24] MEDS ORDERED: FLEXERIL PO (08:06)
[2018-06-06] MEDS ORDERED: VITAMIN B-12500 MCG PO (12:26)
[2018-06-06] MEDS ORDERED: ZINC50 MG PO (12:26)
[2018-06-06] MEDS ORDERED: FOLIC ACID1 MG PO (12:26)
[2018-06-06] MEDS ORDERED: FIBER500 MG PO (12:26)
[2018-06-06] MEDS ORDERED: CENTRUM SILVER1 EAC4 PO (12:26)
[2018-06-06] MEDS ORDERED: BIOTIN1000 MCG PO (12:27)
[2018-06-10] MEDS ORDERED: MUCINEX D TABL1 EACH PO (19:12)
[2018-06-28] MEDS ORDERED: PERCOCET 10-321 EACH PO (11:00)
[2018-06-28] MEDS ORDERED: FLEXERIL PO (11:00)
[2018-06-28] MEDS ORDERED: METHADONE HCL 110 M1 PO (11:40)
[2018-07-20] MEDS ORDERED: HYDROXYCHLOROQ200 M1 PO (11:05)
[2018-08-02] MEDS ORDERED: METHADONE HCL 110 M1 PO (14:06)
[2018-08-02] MEDS ORDERED: FLEXERIL PO ×2 (14:17→14:23)
[2018-08-02] MEDS ORDERED: PERCOCET 10-321 EAC1 PO (14:23)
== END 2018-01-05 16:30 | disposition home or self-care (01) ==
LOC: ER 14:18
DX: M54.5 Low back pain (principal); M54.6 Pain in thoracic spine; I10 Essential (primary) hypertension; E11.9 Type 2 diabetes mellitus without complications; K21.9 Gastro-esophageal reflux disease without esophagitis; G43.909 Migraine, unspecified, not intractable, without status migrainosus; Z85.819 Personal history of malignant neoplasm of unspecified site of lip, oral cavity, and pharynx; Z88.2 Allergy status to sulfonamides; Z88.1 Allergy status to other antibiotic agents; Z88.6 Allergy status to analgesic agent; Z88.8 Allergy status to other drugs, medicaments and biological substances

== ENCOUNTER → 2018-01-20 | Outpatient (CLI) | payer OTHER, BC ==
[~2018-01-20] VITALS: Ht 160 cm; Wt 75.4 kg
[~2018-01-20] MED LIST changes: +KENALOG-1010 MG/ML; +NORFLEX100 MG PO; +REQUIP5 MG PO; +TRAVATAN Z5 ML; +TRIAZOLAM0.25 MG PO
--- NOTE | ~2018-01-20 | HPC ---
[facility] [address] [place] [address] PAIN MANAGEMENT CONSULTATION Name: BARBIEALEX LEE Room [facility]: [facility] [id number] Admission: 01/20/18 Attend Phys: Rehana Perkins MD Discharge: Date of : 60 Report #: [id number] THIS REPORT FOR: //name// CC: Rehana Aguirre DATE OF SERVICE: 01/25/2018 FOLLOWUP COMPLAINT: Here for medications. FOLLOWUP HISTORY: The patient is a 57-year-old female who has been followed in the pain clinic. She has a history of lumbar radiculopathy. She is status post failed back syndrome. She continues to have pain in the lower portion of her back, which is problematic. She finds that her current medications are helpful. She is also experiencing some discomfort in her neck. She has rheumatoid arthritis and osteoarthritis and notes that she continues to experiencing spreading pain involving numerous joints. She has stiffness in the morning. She has been experiencing some jabbing and shooting type pain. She rates her pain with use of her medications as 4/10. She continues to walk. Walking, prolonged standing, bending, twisting can all increase her pain and discomfort. Denies any change in bowel or bladder function. Overall, she feels her medications are helpful. She continues to follow up with her psychologist/psychiatrist. She feels that things continued to be going reasonably well and would like to continue with her medications. ALLERGIES: SULFA, TEMAZEPAM, COMPAZINE, NAPROSYN, METHOTREXATE, CIPROFLOXACIN, METOPROLOL, METFORMIN, TRAZODONE, and LEFLUNOMIDE, caused hair loss. MEDICATIONS: Review of medications indicate Flexeril 10 mg p.o. b.i.d., methadone 10 mg b.i.d., oxycodone/acetaminophen 10/325 one half tab a.m., 1 tab midday, one half tablet evening, try and triamcinolone injection in the knee q.3-4 months, aspirin 81 mg, Amaryl 4 mg elevated blood sugar, Prozac 20 mg at bedtime, calcium 2 tablets daily, losartan 100 mg b.i.d., amlodipine 10 mg one-half tablet b.i.d., alprazolam 0.5 mg t.i.d., Carafate 1 gram q.i.d., Prilosec at 20 mg b.i.d. hydrochloride Estrada/plaquenil 200 mg b.i.d., and Voltaren 1% gel to affected areas of her hand q.i.d. PAIN CLINIC ASSESSMENT: 1. The patient is being treated for osteoarthritis and rheumatoid arthritis with involvement of the left upper extremity, right lower extremity and right upper extremity: 2. Pain intensity 4/10. 3. Fall risk. The patient has not fallen in the last 3 months. She did fall over her dog and banged up her knee. This continues to improve. This was greater than 3 months ago[address] [address] PAIN MANAGEMENT CONSULTATION Name: ALEX VALENTIN Room #: REG [facility]#: [id number] Admission: 01/20/18 Attend Phys: Rehana Perkins MD Discharge: Date of : 60 Report #: [id number] 4. The patient is not on a blood thinner. 5. History of hypertension. The patient is being treated for hypertension. 6. Opioid therapy. The patient is on opioid contract which has been signed. 7. Risk assessment tool, score 2 which is considered low. 8. Functional assessment tool. 9. Recreational drug use. The patient denies use of recreational drugs. 10. Former tobacco smoker. 11. Alcohol: The patient denies use of alcohol. PHYSICAL EXAMINATION: GENERAL: The patient is a well-developed, well-nourished female. She appears her stated age. She is alert and oriented x 3. Conversation is fluent. Affect appears appropriate. VITAL SIGNS: Height 5 foot 3, weight 166 pounds, BMI is 29. Blood pressure 139/76, pulse 101, respiratory rate 14, room air saturation 97%. HEENT: Normocephalic, atraumatic. Extraocular eye muscles intact. Sclerae nonicteric. Moist mucous membranes. Hearing within normal limits. NECK: Without adenopathy or JVD. HEART: Regular rate. ABDOMEN: Nontender. MUSCULOSKELETAL: Without significant scoliosis, kyphosis or lordosis. EXTREMITIES: The patient does have some well-healed bruising in her upper extremities. She does have thin skin, which looks somewhat consistent with the patient is on steroids. Muscle strength is judged to be 5/5. The patient has some slight tremor in her upper extremities. Lower extremity is judged to be 5/5 in the lower extremities. The patient has well healing scars from the fall that she has taken some time ago. Complains of some soreness in her knees and soreness in her shoulders. IMPRESSION: 1. 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 2. Myofascial pain in the posterior iliac spine areas. 3. Pain. The patient does undergo injection in her knees episodically. 4. Migraine headaches. 5. Anxiety. 6. Depression - stable. 7. Discussed the cessation of tobacco use again, with the patient. 8. Hypertension. 9. Arthritis. RECOMMENDATIONS: We discussed treatment course. We will continue with the patient's current medical regimen of Flexeril, oxycodone, methadone, cyclobenzaprine. She will call us if she has any problems with her medications. We have again discussed the importance of decreasing use of tobacco and its effect with chronic pain. We would like to thank you for letting us participate [address] [place] [address] [place] [address] PAIN MANAGEMENT CONSULTATION Name: ALEX VALENTIN Room #: REG CLI [facility]#: [id number] Admission: 01/20/18 Attend Phys: Rehana Perkins MD Discharge: Date of : 60 Report #: [id number] in her care. She will continue to keep her medications in a guarded area. She is aware of the possible complications of chronic opioid use, which include addiction as well as tolerance. <ELECTRONICALLY SIGNED> By: Rehana Perkins MD 01/27/18 0825 0901 1745 Rehana Perkins MD /[facility]
[2018-01-20 11:05] VITALS: BP 139/76
== END ==
LOC: PAIN 06:58
DX: M13.89 Other specified arthritis, multiple sites (principal); G89.29 Other chronic pain; M54.5 Low back pain; I10 Essential (primary) hypertension; M79.1 Myalgia; M25.562 Pain in left knee; M25.561 Pain in right knee; G43.909 Migraine, unspecified, not intractable, without status migrainosus; F41.9 Anxiety disorder, unspecified; F32.9 Major depressive disorder, single episode, unspecified; Z79.899 Other long term (current) drug therapy

== ENCOUNTER → 2018-02-17 | Outpatient (CLI) | payer OTHER, BC ==
[~2018-02-17] VITALS: Ht 160 cm; Wt 76.5 kg
--- NOTE | ~2018-02-17 | HPC ---
[facility] [address] [place] [address] PAIN MANAGEMENT CONSULTATION Name: BARBIEALEX LEE Room #: REG [facility] Angelica#: [id number] Admission: 02/17/18 Attend Phys: Rehana Perkins MD Discharge: Date of : 60 Report #: [id number] THIS REPORT FOR: //name// CC: Rehana Aguirre DATE OF SERVICE: 02/17/2018 FOLLOWUP COMPLAINT: Here for medication renewal. FOLLOWUP HISTORY: The patient is a 57-year-old female who has been followed in the pain clinic because of chronic pain involving her knees and has a history of lumbar radicular pain. She is status post failed back syndrome. Continues to have pain in the lower portion of her back. She finds it is problematic. Also, has some problems with her knees because of rheumatoid arthritis. Feels that her right knee has become more problematic. There is a burning component to it. She has had injections in the knees in the past. She states that she has an appointment to follow up with her orthopedic surgeon in the near future. Has continued low back pain, neck pain, joint pain and rates her pain as a 7/10 without medications. Notes that her medications continue to make it possible for her to engage in activities. She would not be able to do this without their use. States that she has taken the medication as prescribed. She has been watching the current conversation in the media regarding use of opioid medications. Feels that the medication that she is taking is helpful. She is taking them as prescribed. Continues to follow up with her psychologist/psychiatrist. She states that they feel that this is reasonable for her to continue with her current medications. She denies any suicidal ideation. ALLERGIES: SULFA, TEMAZEPAM, COMPAZINE, NAPROSYN, METHOTREXATE, CIPROFLOXACIN, METOPROLOL, METFORMIN, TRAZODONE, WHICH HAS CAUSED HAIR LOSS. CURRENT MEDICATIONS: Flexeril 10 mg 1 p.o. b.i.d., methadone 10 mg b.i.d. Oxycodone/acetaminophen 10/325 mg one-half tablet in mid-day and one half tablet in the evening, triamcinolone injection in her knees q.3-4 months p.r.n., aspirin 81 mg, Amaryl 4 mg for elevated blood sugar, Prozac 20 mg at bedtime, calcium two tablets daily, losartan 100 mg b.i.d., amlodipine 10 mg one-half tablet b.i.d., alprazolam 0.5 mg t.i.d., Carafate 1 gram q.i.d., Prilosec 20 mg b.i.d., hydrochloride/plaque Plaquenil 200 mg b.i.d., Voltaren gel 1% to affected areas of her hand q.i.d. PAIN CLINIC ASSESSMENT: 1. History of osteoarthritis. The patient does have osteoarthritis, rheumatoid arthritis. The patient has been treated for rheumatoid arthritis in the left upper extremity, right lower extremity, right upper extremity. 2. Height 5 foot 3, weight 168 pounds, [place] 29[place] [address] PAIN MANAGEMENT CONSULTATION Name: BARBIEALEX LEE [facility] #: [facility] [id number] Admission: 02/17/18 Attend Phys: Rehana Perkins MD Discharge: Date of : 60 Report #: [id number] 3. Vital signs, blood pressure 152/86, pulse 114, respiratory rate 16, room air saturation 98%. Pain intensity 10 4. Fall risk. The patient has not fallen in the last 3 months. 5. Blood thinner. The patient is not on a blood thinner 6. History of hypertension. The patient is being treated for hypertension. 7. Opioid therapy. The patient is receiving opioid medication and has for the last six weeks to the pain clinic and gets her medication from only one source. 8. Risk assessment tool 12/08, which is low. 9. Functional assessment tool /. 10. Recreational drug use. 11. Tobacco. Former tobacco smoker. 12. Alcohol The patient denies frequent use of alcoholic beverages. PHYSICAL EXAMINATION: GENERAL: The patient is a well-developed white female, appears her stated age. She appears alert and oriented. Conversation is fluent. Affect appears appropriate. HEENT: Normocephalic, atraumatic. Extraocular muscles intact. Sinuses/mucous membranes are moist. Hearing is within normal limits. NECK: Without adenopathy or JVD. Good range of motion of her neck. HEART: Regular rate, normal S1. CHEST: Clear to auscultation without rales or rhonchi. ABDOMEN: Nontender. MUSCULOSKELETAL: Without significant scoliosis, kyphosis or lordosis. EXTREMITIES: The patient does have a well-healed scar in the upper or well healed areas with some bruising in her upper extremities. These areas that looked somewhat ecchymotic. She denies remembering bumping are really causing very much trauma to this area. These are consistent with the way it sometimes looks in people's patient's oral steroids for a prolonged period of time. Musculoskeletal is judged to be 5/5 for the upper extremities. The patient has some increase bruising in the right lower extremity as well as, some bruising around her right knee. States that there is some burning sensation on the inner areas of this knee as well. IMPRESSION: 1. 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 2. Myofascial pain in the posterior iliac spine area. 3. Pain in the right knee. The patient episodically gets injections in her knees. She can follow up with her orthopedic surgeon. 4. Migraines. 5. Anxiety. 6. Depression -- stable. 7. Discussed again cessation of tobacco. 8. Hypertension. 9. Arthritis. [address] [address] PAIN MANAGEMENT CONSULTATION Name: BARBIEALEX LEE Room #: REG [facility]#: [id number] Admission: 02/17/18 Attend Phys: Rehana Perkins MD Discharge: Date of : 60 Report #: [id number] RECOMMENDATIONS: Discussed treatment options with the patient. We will continue with her current medical regimen. A script for methadone 10 mg 1 p.o. b.i.d. has been written. The patient will also continue with Flexeril 10 mg 1 p.o. b.i.d. and has been given a script for oxycodone one-half tablet in the morning and one half tablet in mid-day and tablets in the evening. She will take the medication as prescribed. She will call us if she has any problems with her medications. We would like to thank you for letting us participate in her care. Hopefully, she continues to improve. <ELECTRONICALLY SIGNED> By: Rehana Perkins MD 02/21/18 0823 1445 21 Rehana Perkins MD /VIVIENNE
[2018-02-17 10:38] VITALS: BP 152/86
== END ==
LOC: PAIN 07:15
DX: M54.16 Radiculopathy, lumbar region (principal); M79.1 Myalgia; M25.561 Pain in right knee; G43.909 Migraine, unspecified, not intractable, without status migrainosus; F41.9 Anxiety disorder, unspecified; F32.9 Major depressive disorder, single episode, unspecified; I10 Essential (primary) hypertension; M19.90 Unspecified osteoarthritis, unspecified site; Z79.899 Other long term (current) drug therapy; Z88.2 Allergy status to sulfonamides; Z88.6 Allergy status to analgesic agent; Z88.1 Allergy status to other antibiotic agents; Z88.8 Allergy status to other drugs, medicaments and biological substances

== ENCOUNTER → 2018-04-26 | Outpatient (CLI) | payer OTHER, BC ==
[~2018-04-26] VITALS: Ht 157.5 cm; Wt 75.8 kg
--- NOTE | ~2018-04-26 | HPC ---
[facility] [place] [address] PAIN MANAGEMENT CONSULTATION Name: BARBIEALEX LEE Room #: REG [facility] Zulema.#: [id number] Admission: 04/26/18 Attend Phys: Rehana Perkins MD Discharge: Date of : 60 Report #: [id number] THIS REPORT FOR: //name// CC: Rehana Aguirre DATE OF SERVICE: 04/26/2018 FOLLOWUP COMPLAINT: "My psychiatrist states that he is going to have to decrease some of my medications." FOLLOWUP HISTORY: The patient is a 57-year-old white female who has been followed in the pain clinic because of chronic pain. She has chronic pain involving her knees. Also, has a history of lumbar radiculopathy. She is status post failed back syndrome. Continues to have pain in her lower back, which continues to be problematic. She has rheumatoid arthritis. Feels that her right knee is still problematic. Continues to note some burning components down into her leg. She notes that she continues to bruise easily. She is scheduled to see a planning coordinator Dr. Kent. She continues to wear her arms band, arms wrapped as well as down in her lower extremities because of the ease of bruisability. She continues to follow up with her psychiatrist. States that her medications need to be changed by the end of the year. This has caused her some consternation because she is an anxious person and just simply realizing that they are about to make some changes in her medication has caused an increase in her level of anxiety. ALLERGIES: SULFA, TEMAZEPAM, COMPAZINE, NAPROSYN, METHOTREXATE, CIPROFLOXACIN, METOPROLOL, METFORMIN, TRAZODONE. PAIN CLINIC ASSESSMENT: 1. History of osteoarthritis. The patient does have osteoarthritis as well as rheumatoid arthritis. 2. Left upper extremity, right lower extremity, right upper extremity arthritis. 3. Height 5 feet 2 inches, weight 167 pounds, BMI is 30. 4. Vital signs: Blood pressure 150/81, pulse 100, respiratory rate 16, room air saturation 96%. 5. Pain intensity 02/07. 6. Fall risk. The patient has not fallen in the last 3 months. 7. Blood thinner. The patient is not on a blood thinning medication, but does bruise easily. 8. Hypertension. The patient is being treated for hypertension. 9. Opioid therapy greater than 6 weeks. The patient is on an opioid contract and gets her medication from one source. 10. Risk assessment tool 12/10 low for opioid use. 11. Functional assessment tool showing moderate amounts of pain and [address] [address] PAIN MANAGEMENT CONSULTATION Name: BARBIEALEX NATHANAEL Room #: REG [facility]#: [id number] Admission: 04/26/18 Attend Phys: Rehana Perkins MD Discharge: Date of : 60 Report #: [id number] discomfort and interfering with her activities of daily living. 12. Recreational drug use. The patient denies use of recreational drugs. 13. Former smoker. 14. Alcohol use. The patient denies use of alcohol at this juncture. PHYSICAL EXAMINATION: GENERAL: The patient is a well-developed white female, appears her stated age. She is alert and oriented x 3. Conversation is fluent. She is somewhat depressed given that she has been told that they may start to decrease her antianxiety medications. HEENT: Normal normocephalic, atraumatic. Extraocular eye muscles intact. Sinuses moist. Hearing was within normal limits. Sclerae nonicteric. SKIN: Numerous areas of broken skin. The patient has her left and right arm wrapped from her wrist to the forearms. Has a number of bruises on her legs with different levels of healing. HEART: Regular rate. S1, S2. LUNGS: Clear to auscultation without rhonchi or rales. ABDOMEN: Nontender. MUSCULOSKELETAL: Without significant scoliosis, kyphosis or lordosis extremity. The patient's muscle strength in the upper extremity is judged to be 4+/5 for the left and right upper extremity and 4+/5 for the lower extremities. Note some ecchymotic areas on her knees and lower legs. IMPRESSION: 1. Chronic radicular pain secondary to failed back syndrome treated with opioid therapy and complex medical management. 2. Myofascial pain in the posterior iliac spine area. 3. Pain in the right knee, the patient has undergone injections in the affected knee. 4. Migraines. 5. Anxiety. 6. Depression/stable. 7. Discussed cessation of tobacco. 8. Hypertension. 9. Arthritis. RECOMMENDATIONS: We discussed treatment options with the patient. At this juncture, we will continue with her current medications. A script for her medications, which include Flexeril, oxycodone and methadone have been rewritten. The patient will be given a script to follow up in the ____ Clinic for evaluation and help with her pain. She will call us if she has any problem [address] [address] PAIN MANAGEMENT CONSULTATION Name: ALEX VALENTIN Room #: REG [facility]#: [id number] Admission: 04/26/18 Attend Phys: Rehana Perkins MD Discharge: Date of : 60 Report #: [id number] with her medications. We would like to thank you for letting us participate in her care. She will call us if she has any concerns. By: 1451 [id number] Rehana Perkins MD /nt
[2018-04-26 09:19] VITALS: BP 150/81
== END ==
LOC: PAIN 04-21 06:55
DX: M25.561 Pain in right knee (principal); M54.5 Low back pain; M79.1 Myalgia; I10 Essential (primary) hypertension; F41.9 Anxiety disorder, unspecified; M19.90 Unspecified osteoarthritis, unspecified site; G43.909 Migraine, unspecified, not intractable, without status migrainosus; F32.9 Major depressive disorder, single episode, unspecified; Z79.891 Long term (current) use of opiate analgesic

== ENCOUNTER → 2018-05-24 | Outpatient (CLI) | payer OTHER, BC ==
[~2018-05-24] VITALS: Ht 157.5 cm; Wt 73.5 kg
--- NOTE | ~2018-05-24 | HPC ---
[facility] [place] [address] PAIN MANAGEMENT CONSULTATION Name: BARBIEALEX NATHANAEL Room #: REG [facility].#: [id number] Admission: 05/24/18 Attend Phys: Rehana Perkins MD Discharge: Date of : 60 Report #: [id number] THIS REPORT FOR: //name// CC: Rehana Aguirre MD DATE OF SERVICE: 05/24/2018 FOLLOWUP COMPLAINT: Here for medication renewal. FOLLOWUP HISTORY: The patient is a 57-year-old female who has been followed in the pain clinic because of chronic pain. As you may recall, she has some chronic pain issues. They involve her knees. She has also had some lumbar radicular pain. She has status post failed back syndrome. She has some problems with easy bruising. She has seen Dr. Kent in regards to this problem. She is somewhat disheartened today. She states that she has seen doctors on a regular basis. She has four physician appointments today. She was thinking about going to the [facility] for help with her chronic pain. She states that she has not been able to because of lack of time. ALLERGIES: SULFA, TEMAZEPAM, COMPAZINE, NAPROSYN, METHOTREXATE, CIPROFLOXACIN, METOPROLOL, METFORMIN, TRAZODONE. CURRENT MEDICATIONS: Methadone 10 mg b.i.d., Flexeril 10 mg, Kenalog knee injections, Amaryl 4 mg, elevated blood sugars, Prozac 20 mg at bedtime, calcium, losartan 100 mg b.i.d., amlodipine 5 mg b.i.d., alprazolam 0.5 mg t.i.d., Carafate 1 gram q.i.d., Prilosec 20 mg b.i.d., Plaquenil 200 mg b.i.d., Voltaren gel topical p.r.n. as needed to hands, Pravachol 20 mg daily. PAIN CLINIC ASSESSMENT: 1. History of osteoarthritis. The patient does have osteoarthritis as well as rheumatoid arthritis. 2. Left upper extremity, right upper extremity pain involving arthritis. 3. Height 5 feet 2 inches, weight 162 pounds, BMI is 29. 4. Vital Signs: Blood pressure 172/90, pulse 106, respiratory rate 18, room air saturation 97%. 5. Pain intensity 03/09. 6. Fall risk. The patient has not fallen in the last 3 months. 7. Blood thinner. The patient is not on a blood thinning medication. 8. Hypertension. The patient is being treated for hypertension. 9. Opioid therapy greater than 6 weeks. The patient is receiving medications from the pain clinic for opioid medications. 10. Risk assessment tool, low for use of opioid medication. 11. Functional assessment tool 46/. 12. Recreational drug use. The patient denies use of recreational drugs. [address] [address] PAIN MANAGEMENT CONSULTATION Name: ALEX VALENTIN Room #: REG [facility] Dominguez#: [id number] Admission: 05/24/18 Attend Phys: Rehana Perkins MD Discharge: Date of : 60 Report #: [id number] 13. Tobacco: The patient is a former smoker. 14. Alcohol: The patient denies use of alcoholic beverages. PHYSICAL EXAMINATION: GENERAL: The patient is a well-developed, well-nourished white female. Appears her stated age. She is alert and oriented x 3. Conversation is fluent. She is somewhat depressed. She does cry with the nurse during her interview. HEENT: Normocephalic, atraumatic. Extraocular eye muscles intact. Sinuses moist. Hearing within normal limits. Sclerae nonicteric. SKIN: Numerous areas of broken skin in the anterior portion of her forearms as well as the right leg. Has cloth elastic wrap- wrapped around her right forearm because of the easy bruisability that she has noted. HEART: Regular rate. S1, S2. LUNGS: Clear to auscultation without rales or rhonchi. ABDOMEN: Nontender. MUSCULOSKELETAL: Without scoliosis, kyphosis or lordosis. The patient's upper extremity muscle strength is +4/5 for the left and right upper extremity, 4/5 for the lower extremities. The patient has some ecchymotic areas on her knee and lower legs. IMPRESSION: 1. Chronic radicular pain secondary to failed back syndrome treated with opioid therapy and complex medication regimen. 2. Myofascial pain in the posterior iliac spine areas. 3. Pain in the right knee, the patient has undergone injections for her affected knees. 4. Migraines. 5. Anxiety. 6. Depression, mostly stable. 7. Discussed cessation of tobacco. 8. Hypertension. 9. Arthritis. 10. Gastroesophageal problems with reflux and chronic reflux symptomatology. RECOMMENDATIONS: We discussed treatment options with the patient. At this juncture, we will continue with her current medical regimen. A script for her medications has been reviewed. Hopefully, the patient will start to feel better as more information regarding her gastroesophageal reflux, which is quite problematic, will be helped. The patient states she has had some dilation of her esophagus in the past. She suffered from a hiatal hernia. Feels that her gastrointestinal problems are the most problematic items at this juncture. <ELECTRONICALLY SIGNED> By: Rehana Perkins MD 05/26/18 [id number] 2032 Rehana Perkins MD /VIVIENNE
[2018-05-24 10:20] VITALS: BP 172/90
== END ==
LOC: PAIN 06:26
DX: M54.5 Low back pain (principal); G89.29 Other chronic pain; I10 Essential (primary) hypertension; K21.9 Gastro-esophageal reflux disease without esophagitis; M79.1 Myalgia; M25.562 Pain in left knee; G43.909 Migraine, unspecified, not intractable, without status migrainosus; F32.9 Major depressive disorder, single episode, unspecified; F41.9 Anxiety disorder, unspecified; Z79.891 Long term (current) use of opiate analgesic

== ENCOUNTER → 2018-08-02 | Outpatient (CLI) | payer OTHER, BC ==
[~2018-08-02] VITALS: Ht 157.5 cm; Wt 71.3 kg
[~2018-08-02] MED LIST changes: +BIOTIN1000 MCG PO; +CENTRUM SILVER1 EAC4 PO; +FIBER500 MG PO; +FOLIC ACID1 MG PO; +MUCINEX D TABL1 EACH PO; +PERCOCET 10-321 EAC1 PO; +ZINC50 MG PO
--- NOTE | ~2018-08-02 | HPC ---
[facility] [place] [address] PAIN MANAGEMENT CONSULTATION Name: ALEX VALENTIN NATHANAEL Room #: REG [facility].#: [id number] Admission: 08/02/18 Attend Phys: Rehana Perkins MD Discharge: Date of : 60 Report #: [id number] THIS REPORT FOR: //name// CC: Rehana Aguirre MD DATE OF SERVICE: 08/02/2018 PRIMARY CARE PHYSICIAN: Yvan Aguirre MD FOLLOWUP COMPLAINT: Here for medication renewal. FOLLOWUP HISTORY: The patient is a 57-year-old female who has been followed in the pain clinic because of chronic pain involving her knees, back and neck. She has a history of L4-L5 fusion. Continues to have pain and discomfort, which radiates down into her legs. She also has some pain and discomfort in her upper back and in the knees. Finds that her current use of medications is helpful. She does have some easy bruisability. She states that she has been followed up by her physician, Dr. Kent. She has been given a number of tests. Nothing significantly wrong has been found. She does have very thin skin. Continues to note easy bruisability. She has returned today for renewal of her medications. ALLERGIES: SULFA, TEMAZEPAM, COMPAZINE, NAPROSYN, METHOTREXATE, CIPROFLOXACIN, METOPROLOL, METFORMIN, TRAZODONE. CURRENT MEDICATIONS: Methadone 1 mg p.o. b.i.d., Flexeril 10 mg, Kenalog knee injections in the past, Amaryl 4 mg for elevated blood sugars, Prozac 20 mg at bedtime, calcium, losartan 100 mg b.i.d., amlodipine 5 mg b.i.d., alprazolam 0.5 mg t.i.d., Carafate 1 g q.i.d., Prilosec 20 mg b.i.d., Plaquenil 200 mg b.i.d., Voltaren gel applied to hands, Pravachol 20 mg daily. PAIN CLINIC PHYSICAL ASSESSMENT AND PQRS: 1. History of osteoarthritis. The patient does have some arthritic changes in her back. She also has some rheumatological changes in her upper extremity. 2. Height 5 feet 2 inches, weight 157 pounds, BMI is 28.7. 3. Vital signs: Blood pressure 135/73, pulse 98, respiratory rate 20, room air saturation 97%. 4. Pain intensity 5/10. 5. Fall history: The patient did fall in her kitchen and hit her back on a cabinet on 06/10/2018. 6. Blood thinner. The patient is not on a blood thinning medication. 7. Hypertension. The patient is being treated for hypertension. 8. Opioids. The patient is receiving opioid medications from one source[place] [address] PAIN MANAGEMENT CONSULTATION Name: BARBIEALEX LEE Room #: REG [facility] Angelica#: [id number] Admission: 08/02/18 Attend Phys: Rehana Perkins MD Discharge: Date of : 60 Report #: [id number] 9. Risk assessment tool: Low for opioid use. 10. Functional assessment: . 11. Recreational drug use. The patient denies use of recreational drugs. 12. Tobacco: The patient denies use of tobacco at this juncture. 13. Alcohol: The patient denies use of alcoholic beverages at this juncture. PHYSICAL EXAMINATION: GENERAL: The patient is a well-developed, well-nourished, white female. Appears her stated age. She is alert and oriented x 3. Her affect is appropriate. Speech is fluent. HEENT: Normocephalic, atraumatic. Extraocular eye muscles intact. Sclerae nonicteric. Mucous membranes are moist. SKIN: Has numerous thin skin areas with breakdown in her forearms. The patient has a wrap around her forearms to help decrease the bruising. HEART: Regular rate. S1, S2. LUNGS: Clear to auscultation without rales or rhonchi. ABDOMEN: Nontender. Bowel sounds present. MUSCULOSKELETAL: Without scoliosis, kyphosis or lordosis. The patient's upper extremity muscle strength is judged to be 4/5 for the left and right upper extremity. Lower extremity muscle strength about 4+ for the lower extremities. The patient has some ecchymosis near her knees and on her legs. IMPRESSION: 1. Chronic radicular pain, status post failed back syndrome with opioid therapy for complex medical management. 2. Myofascial pain in the posterior iliac spine areas. 3. Pain in the knees. The patient undergoes injections in her knees periodically. 4. Migraines. 5. Anxiety. 6. Depression, stable at this juncture. 7. Tobacco: The patient and I discussed cessation of tobacco use for greater than 3 minutes. 8. Hypertension. 9. Arthritis. 10. Gastroesophageal reflux with chronic symptomatology. RECOMMENDATIONS: We discussed treatment options with the patient. Her scripts were renewed. The patient will continue to use her opioid medications only as prescribed. We again discussed the problems with opioid medications. The patient states that she keeps her medication in a guarded area. Finds that they enable her to engage in activities, she would not be able to without their use. [address] [place] [address] PAIN MANAGEMENT CONSULTATION Name: ALEX VALENTIN [facility] [id number] Admission: 08/02/18 Attend Phys: Rehana Perkins MD Discharge: Date of : 60 Report #: [id number] We would like to thank you for letting us participate in her care. We hope she continues to improve. <ELECTRONICALLY SIGNED> By: Rehana Perkins MD 08/14/18 1124 1603 0459 Rehana Perkins MD /PMT
[2018-08-02 13:39] VITALS: BP 135/73
== END ==
LOC: PAIN 06:58
DX: G89.29 Other chronic pain (principal); K21.9 Gastro-esophageal reflux disease without esophagitis; M19.90 Unspecified osteoarthritis, unspecified site; I10 Essential (primary) hypertension; F32.9 Major depressive disorder, single episode, unspecified; F41.9 Anxiety disorder, unspecified; G43.909 Migraine, unspecified, not intractable, without status migrainosus; M25.562 Pain in left knee; M25.561 Pain in right knee; M79.18 Myalgia, other site; F17.210 Nicotine dependence, cigarettes, uncomplicated; Z79.899 Other long term (current) drug therapy

== ENCOUNTER → 2018-09-13 | Outpatient (CLI) | payer OTHER, BC ==
[~2018-09-13] VITALS: Ht 157.5 cm; Wt 68.0 kg
--- NOTE | ~2018-09-13 | HPC ---
[facility] [address] [address] PAIN MANAGEMENT CONSULTATION Name: BARBIEALEX LEE [facility] #: [facility] [id number] Admission: 09/13/18 Attend Phys: Khadijah Escobedo Discharge: Date of : 60 Report #: [id number] THIS REPORT FOR: //name// CC: Khadijah Escobedo Yvan Aguirre DATE OF SERVICE: 09/13/2018 CHIEF COMPLAINT: Here for her chronic knee pain, back pain and neck pain status post failed back syndrome. HISTORY OF PRESENT ILLNESS: The presents today as a 58-year-old female who has been followed in the pain clinic for her chronic radicular pain from a status post failed back requiring a long-term opioid therapy. She tells me today that she has been recuperating from a urinary tract infection that has taken three different antibiotics to clear up. She is finally feeling better and that she also is complaining of right knee pain today. Normally, her pain is in her low back, neck and upper back. Her pain score today is a 3/10, worse with her activity, walking and standing. She tells me that her methadone 10 mg that she takes in the afternoon and her Percocet 10/325 that she takes about 4 times a day is very helpful as well as her Flexeril. She did tell me that she has been seeing her tube building machine operator and they are talking about starting her on Prolia, but unsure if she wants to do that because there are several side effects. The patient tells me her osteoporosis is getting worse and she has been having teeth that are falling out due to this, so she thinks that she probably will need to switch her medicines for her rheumatoid arthritis. ALLERGIES: SULFA, TEMAZEPAM, COMPAZINE, NAPROXEN, METHOTREXATE, CIPRO, TOPROL, METFORMIN, TRAZODONE, LEFLUNOMIDE. LIST OF CURRENT MEDICINES: Percocet 10/325 four times a day, methadone 10 once daily, Flexeril 10 mg once daily, Plaquenil twice a day, biotin, zinc, vitamin B12, multivitamin, folic acid, fiber, Amaryl, Prozac, calcium, losartan, amlodipine, Xanax, Carafate, omeprazole, diclofenac and pravastatin. PQRS: Today, the patient has a history of osteoarthritis in her hands. In fact, she does have rheumatoid arthritis in her upper extremities. Her height is 5 feet 2 inches, her weight is 150. Her BMI is 27.4. Vital signs: Blood pressure 146/78, pulse is 112, respirations 18, oxygen sat is 97%. Pain score is 3/10. Fall risk. She denies dizziness. Does not need help walking or standing, but has fallen in the last 3 months. She is not on any blood thinners and does have a history of high blood pressure. She is on opioid therapy greater than 6 weeks. Therefore, opioid signed contract is on the chart. Her risk assessment tool is low. Her functional assessment is 46/70. She denies recreational drug use, is a former smoker and does not drink alcohol. [address] [address] PAIN MANAGEMENT CONSULTATION Name: ALEX VALENTIN Room #: REG CLIrina Dominguez#: [id number] Admission: 09/13/18 Attend Phys: Khadijah Escobedo Discharge: Date of : 60 Report #: [id number] We checked the [facility] prescription monitoring system. She is filling appropriate for her methadone and oxycodone from Dr. Perkins. No other pharmacies or physicians are giving these prescriptions. She has a urine drug screen on the chart from her last visit, which is appropriate. PHYSICAL EXAMINATION: GENERAL: The patient is a well-developed, well-nourished, white female, appears her stated age. She is alert and oriented x 3. Her affect is appropriate. HEENT: Normocephalic, atraumatic. Extraocular eye muscles are intact. Mucous membranes are moist. Does have some missing cracked teeth since last visit. SKIN: Has numerous skin tears or breakdowns on her forearm. She has her wrist wrapped and is not wearing her splint today due to a tear. MUSCULOSKELETAL: Without scoliosis, kyphosis or lordosis. The patient's upper extremity strength to be judged about 4/5 for upper extremities. Her lower extremity strength to be 4/5 in her lower extremities in all muscle groups. IMPRESSION: 1. Chronic radicular pain status post failed back syndrome with opioid therapy. 2. Myofascial pain posterior iliac spine. 3. Pain in her knees bilaterally, does get knee injections. 4. Migraines. 5. Anxiety. 6. Depression. 7. Tobacco use. Did discuss smoking cessation. 8. Hypertension. 9. Arthritis. We reviewed the fact that opiate medications are being used to provide analgesia adequate to support activities of daily living, not attempting to achieve a specific pain score on the 0-10 Visual Analog Scale. The current opiate medications are providing sufficient analgesia to allow the patient to participate in activities of daily living. The patient is not exhibiting any aberrant behavior suggestive of drug diversion. The patient is not having any adverse reactions to medications. The patient is not suffering from daytime somnolence or mental acuity changes. The patient is managing opiate-induced constipation with appropriate xymt-whe-[id number] agents and dietary considerations. The patient was counseled on concern for caution with operating a motor vehicle while using opiate medications. A physical exam was performed and the patient's functional status was evaluated. All patients with back pain were advised against the bed rest greater than 4 days and were advised to return to normal activities. Pain score assessment was noted and the treatment plan was reviewed with the patient. All current medications, both prescribed and OTC were reviewed and reconciled on the electronic medical record. Tobacco screening was accomplished and smoking cessation was advised when indicated. BMI was noted and diet/exercise [address] [address] PAIN MANAGEMENT CONSULTATION Name: BARBIEALEX LEE Room #: REG [facility]#: [id number] Admission: 09/13/18 Attend Phys: Khadijah Escobedo Discharge: Date of : 60 Report #: [id number] modification was recommended for all patients following outside normal parameters. I reviewed with the patient today their responsibilities to safeguard prescription medications, reviewed their responsibility to utilize medications only as prescribed by the physician. They are to seek and receive pain medications only from 1 physician group ( [facility]). They are to use 1 pharmacy and keep the clinic informed if they change pharmacies. Their responsibilities include making followup visits in a timely fashion and to avoid abrupt discontinuation of medication usage. Their responsibilities further include bringing their medications (bottles from the pharmacy with residual pills) to the visit for possible confirmation of pill counts and the patient understands it is their responsibility to submit to random drug screens to ensure both that the medications prescribed are present, and that no other controlled substances are present. All prescriptions provided today were generated electronically. PLAN: 1. We discussed treatment options with this patient. She tells me that her pain is controlled with her methadone 10 mg that she takes in the afternoon and her Percocet 10/325 four times a day, she takes quantity 120 and a 30-day supply 4 a day, this is helpful in relieving her pain. Script also given for Flexeril 10 mg 1 tablet at bedtime with 2 additional refills. 2. We did talk about dentures versus implantation due to her osteoporosis and that she has been losing her teeth. Regarding her osteoporosis, she will discuss this further with her rheumatoid doctor because implants may not be appropriate for her if her bones cannot take an implant. The patient is unsure if she wants to wear dentures, but because her teeth have been falling out, she thinks she needs to take something she keeps covering her mouth, so people cannot see that her teeth are broken. 3. The patient will return in followup visit in 1 month. Appointment will be made. The patient is agreeable with this plan of care. 4. The patient seen in followup collaboration today with Dr. Mike Perkins. <ELECTRONICALLY SIGNED> By: Khadijah Escobedo 09/14/18 0724 [id number] Khadijah Escobedo /chapo
[2018-09-13 12:45] VITALS: BP 146/78
== END ==
LOC: PAIN 09-06 08:48
DX: M25.561 Pain in right knee (principal); M25.562 Pain in left knee; M79.18 Myalgia, other site; G89.29 Other chronic pain; I10 Essential (primary) hypertension; M19.90 Unspecified osteoarthritis, unspecified site; F17.210 Nicotine dependence, cigarettes, uncomplicated; F32.9 Major depressive disorder, single episode, unspecified; F41.9 Anxiety disorder, unspecified; G43.909 Migraine, unspecified, not intractable, without status migrainosus

== ENCOUNTER → 2018-10-11 | Outpatient (CLI) | payer OTHER, BC ==
[~2018-10-11] VITALS: Ht 157.5 cm; Wt 70.8 kg
--- NOTE | ~2018-10-11 | HPC ---
[facility] [address] [place] [address] PAIN MANAGEMENT CONSULTATION Name: ALEX VALENTIN Room #: [facility] [id number] Admission: 10/11/18 Attend Phys: Khadijah Escobedo Discharge: Date of : 60 Report #: [id number] THIS REPORT FOR: //name// CC: Khadijah Escobedo Yvan Aguirre DATE OF SERVICE: 10/11/2018 CHIEF COMPLAINT: Chronic knee pain, back pain and neck pain status post failed back syndrome. HISTORY OF PRESENT ILLNESS: The patient returns today for a refill of her medications. She tells me that they have been working quite well listing her pain score of 3/10. She tells me that she takes her methadone midafternoon, takes her oxycodone in the morning and then later again in the day and finds them very helpful in relieving her low back pain and neck pain. She tells me that she has been continuing to lyles a urinary tract infection, which she thought at her last visit that had been cleared, but further cultures revealed a different bacteria and she is currently on another round of antibiotics. She has a history of C. diff, so she has been taking probiotic, cranberry and yogurt to try to prevent further bouts of C. diff. The patient tells me that her right knee has been bothering her lately and since she has had this ongoing urinary tract infection, she was unable to get her right knee steroid injection because of her infection and she was unable to get a flu shot, so she is hopeful that she stays healthy for the rest of the winter since she was unable to do her flu shot this year. The patient tells me that she has not started her Prolia for her rheumatoid arthritis and still trying to decide if that is the best route. So far today, she has been feeling good as far as pain control, but other issues, she is kind of depressed, that she thinks she is falling apart, tried to encourage her in her health situation. ALLERGIES: Please see list. SULFA, TEMAZEPAM, COMPAZINE, NAPROXEN, METHOTREXATE, CIPRO, TOPROL, METFORMIN, TRAZODONE, LEFLUNOMIDE and AMOXICILLIN. CURRENT MEDICATIONS: Oxycodone 10/325 up to 4 times a day, methadone 10 mg in the afternoon, Flexeril 10 mg at bedtime, then see the patient's current medication list that had been reconciled. PQRS: 1. The patient does have a history of osteoarthritis in her hands and she has rheumatoid arthritis in her upper extremities. 2. Height is 5 feet 2 inches, weight is 150, BMI is 27.4. 3. Vital signs: Blood pressure 146/78, pulse is 112, respirations 18, and oxygen sat is 97%. 4. Pain score is 3/10. 5. Fall risk. The patient denies dizziness, [place] [address] PAIN MANAGEMENT CONSULTATION Name: BARBIEALEX LEE Room #: REG Irina Dominguez#: [id number] Admission: 10/11/18 Attend Phys: Khadijah Escobedo Discharge: Date of : 60 Report #: [id number] standing and has not fallen in the last 3 months. 6. The patient denies blood thinners, but does take antihypertensive medicines. 7. Opioid therapy is greater than 6 weeks, therefore, an opioid signed contract is on the chart. 8. Her risk assessment tool is low and her functional assessment is 46/70. 9. The patient denies recreational drug use. Tells us that she is a former smoker, but when asked about this today due to smelling of cigarette smoke, she tells me that she has been taking a few cigarettes from a friend. I encouraged the patient to try to decrease and stop her use again. The patient denies alcohol use. We did check the prescription monitoring system. The patient has been filling her meds in one location from Dr. Perkins. She does have a urine drug screen that is within the past year on the chart that was appropriate. PHYSICAL EXAMINATION: GENERAL: This patient is a well-developed, well-nourished white female that appears her stated age. She is alert and oriented x 3. Her affect is appropriate. HEENT: Normocephalic, atraumatic. Extraocular eye muscles are intact. Mucous membranes are moist. MUSCULOSKELETAL: Without scoliosis, kyphosis or lordosis. Upper extremity strength judged to be 4/5 in her upper extremities and her lower extremity strength judged to be 4/5 in lower extremities in all major muscle groups. ASSESSMENT: 1. Chronic radicular pain status post failed back syndrome. 2. Myofascial pain. 3. Pain in bilateral knees, history of knee injections. 4. Migraines. 5. Anxiety. 6. Depression. 7. Tobacco use. Did discuss smoking cessation. 8. Hypertension. 9. Arthritis. We reviewed the fact that opiate medications are being used to provide analgesia adequate to support activities of daily living, not attempting to achieve a specific pain score on the 0-10 Visual Analog Scale. The current opiate medications are providing sufficient analgesia to allow the patient to participate in activities of daily living. The patient is not exhibiting any aberrant behavior suggestive of drug diversion. The patient is not having any adverse reactions to medications. The patient is not suffering from daytime somnolence or mental acuity changes. The patient is managing opiate-induced constipation with appropriate niga-npl-yalzbcl agents and dietary considerations. The patient was counseled on concern for caution with operating [facility] [address] [place] [address] PAIN MANAGEMENT CONSULTATION Name: BARBIEALEX NATHANAEL Room #: REG [facility].#: [id number] Admission: 10/11/18 Attend Phys: Khadijah Escobedo Discharge: Date of : 60 Report #: [id number] a motor vehicle while using opiate medications. A physical exam was performed and the patient's functional status was evaluated. All patients with back pain were advised against the bed rest greater than 4 days and were advised to return to normal activities. Pain score assessment was noted and the treatment plan was reviewed with the patient. All current medications, both prescribed and OTC were reviewed and reconciled on the electronic medical record. Tobacco screening was accomplished and smoking cessation was advised when indicated. BMI was noted and diet/exercise modification was recommended for all patients following outside normal parameters. I reviewed with the patient today their responsibilities to safeguard prescription medications, reviewed their responsibility to utilize medications only as prescribed by the physician. They are to seek and receive pain medications only from 1 physician group ( [facility]). They are to use 1 pharmacy and keep the clinic informed if they change pharmacies. Their responsibilities include making followup visits in a timely fashion and to avoid abrupt discontinuation of medication usage. Their responsibilities further include bringing their medications (bottles from the pharmacy with residual pills) to the visit for possible confirmation of pill counts and the patient understands it is their responsibility to submit to random drug screens to ensure both that the medications prescribed are present, and that no other controlled substances are present. All prescriptions provided today were generated electronically. PLAN: 1. We discussed treatment options with this patient today. She tells me that her pain is very well controlled with her methadone 10 mg that she takes in the afternoon and her Percocet 10/325 that she takes up to 4 times a day. She tells me that her pain score is 3/10 today and would like a refill. Scripts today were given for methadone 10, #30 and Percocet 10/325, #120. 2. The patient was requesting that she has to be able to take two Flexeril a day due to some increasing muscle spasms. The patient has previously been taking Flexeril one tablet at bedtime, that has in the past taken as many as two in a day. Script given for her Flexeril 10 mg, #60 with 2 additional refills. 3. The patient continues on her current antibiotics for her UTI. Because of this, the patient is worried about redeveloping her C. diff. We did encourage the patient to continue with her yogurt and her probiotic and cranberry juice, but if any signs of diarrhea occur, then she needs to contact her primary as soon as possible to help hopefully prevent recurrence of her C. diff. The patient understandable of this and very worried that she does not want to get sick over the holidays. 4. The patient will return in 1 month followup for a refill of her medication [address] [address] PAIN MANAGEMENT CONSULTATION Name: ALEX VALENTIN Room #: REG CLIrina Dominguez#: [id number] Admission: 10/11/18 Attend Phys: Khadijah Escobedo Discharge: Date of : 60 Report #: [id number] and the patient is agreeable with this plan of care. This patient is seen today in collaboration with Dr. Mike Perkins. <ELECTRONICALLY SIGNED> By: Khadijah Escobedo 10/12/18 [id number] Khadijah Escobedo /chapo
[2018-10-11 11:01] VITALS: BP 148/78
== END ==
LOC: PAIN 10:42
DX: M54.16 Radiculopathy, lumbar region (principal); M79.18 Myalgia, other site; M25.561 Pain in right knee; M25.562 Pain in left knee; G43.909 Migraine, unspecified, not intractable, without status migrainosus; I10 Essential (primary) hypertension; F32.9 Major depressive disorder, single episode, unspecified; F41.9 Anxiety disorder, unspecified; M19.90 Unspecified osteoarthritis, unspecified site; F17.200 Nicotine dependence, unspecified, uncomplicated

== ENCOUNTER → 2018-11-10 | Outpatient (CLI) | payer OTHER, BC ==
[~2018-11-10] VITALS: Ht 157.5 cm; Wt 72.0 kg
[2018-11-10 11:19] VITALS: BP 138/64
--- NOTE | 2018-11-10 11:25 | NUR ---
Pain Clinic Assessment: 1. History of Osteoarthritis: YES History of Rheumatoid Arthritis: YES Left Upper Extremity Right Lower Extremity Right Upper Extremity 2. Height: 5 ft. 2 in. 157.5 cm. Weight: 158.8 lb. oz. 72.031 kg. Patient's BMI: 29.0 3. Vital Signs: BP: 138/64 Pulse: 109 Resp: 18 Temp: 02 Sat: 94 ECG Mon: 4. Pain Intensity: 5 5. Fall Risk: Dizziness: N Needs help standing or walking: N Fallen in the last 3 months: N Fall risk comments: 6. Patient on Blood Thinner: None 7. History of Hypertension: Y 8. Opioid Therapy greater than 6 weeks: Y Opiate Contract Signed: 12/22/16 9. Risk Assessment Tool Provided: 1/RAMÓN 10. Functional Assessment Tool: 11. Recreational Drug Use: Never Drug Type: Tobacco Use: Former Smoker Tobacco Type: Amount or Packs/day: How Many Years: Alcohol Use: No Frequency: Quant:
--- NOTE | 2018-11-13 07:12 | HPC ---
[facility] [place] [address] PAIN MANAGEMENT CONSULTATION Name: BARBIEAELX LEE Room #: REG [facility] Zulema.#: [id number] Admission: 11/10/18 Attend Phys: Khadijah Escobedo Discharge: Date of : 60 Report #: [id number] THIS REPORT FOR: //name// CC: Khadijah Escobedo Yvan Aguirre DATE OF SERVICE: 11/10/2018 CHIEF COMPLAINT: Chronic knee pain, back pain, neck pain, status post failed back syndrome. HISTORY OF PRESENT ILLNESS: The patient returns to the Pain Clinic today for refill of her medications. She tells me that her pain medicines are working fairly well. Her pain score is 5/10. She tells me that she continues to lyles the urinary tract infection that she has had for 4 months. She has tried numerous antibiotics and currently taking Keflex. She is scheduled to see a urologist soon and a acute care registered nurse, Dr. Olson stating that they did get all of her urinary issues resolved of a [id number]-lhq hysterectomy and some of her anatomy has changed. So, she is seeing both the urologist and the acute care registered nurse. She tells me in relation to her pain, her rheumatoid arthritis has been flaring up causing some increase in her pain and has not been able to function as well as she has in the past, is achy, stiffness, worse with activity and walking. ALLERGIES: She has a significant list. Please see list on her chart. CURRENT LIST OF MEDICATIONS: Oxycodone 10/325 four times a day, methadone 10 mg tablets at noon, cyclobenzaprine twice a day, Plaquenil 200 mg twice a day, Biotin 1000 mcg daily, zinc 50 mg daily, vitamin B12 daily, Centrum Silver daily, folic acid daily, fiber daily, Amaryl 4 mg as needed, Prozac 20 mg twice a day, Caltrate daily, losartan 100 mg twice a day, amlodipine 5 mg twice a day, Xanax 0.5 three times a day, Carafate 1 mg 4 times a day, Prilosec 20 mg twice a day, diclofenac gel as needed and pravastatin 20 mg at bedtime. PQRS: 1. Does have a history of osteoarthritis in hands and rheumatoid arthritis in her hands and upper extremities. 2. Height is 5 feet 2 inches, weight is 158, BMI is 29. 3. Vital signs: 138/64, pulse is 109, respirations 18, oxygen sat is 94. 4. Pain score is 5/10. 5. Denies dizziness. She does not need help walking or standing. She has not fallen in the last 3 months. 6. The patient is not on any blood thinners. Does have a history of hypertension. 7. Her opioid therapy was greater than 6 weeks. Therefore, no opioid signed contract is on the chart. 8. Her risk assessment tool is low. Her functional assessment is 53/70. The [address] [address] PAIN MANAGEMENT CONSULTATION Name: ALEX VALENTIN Room #: REG ALIA Dominguez#: [id number] Admission: 11/10/18 Attend Phys: Khadijah Escobedo Discharge: Date of : 60 Report #: [id number] patient denies recreational drug use. She is a former smoker and does not drink alcohol. We did check the prescription monitoring system. The patient is filling appropriately for medications. The patient tells me she does safeguard her medications too. PHYSICAL EXAMINATION: GENERAL: Well-developed, well-nourished white female that appears her stated age. She is alert and orientated. Her affect is a little tearful today. HEENT: Normocephalic, atraumatic. Extraocular eye muscles are intact. Mucous membranes are moist. She is missing several teeth and tries to hide her mouth and keeps her mouth closed. MUSCULOSKELETAL: Without scoliosis, kyphosis, lordosis. EXTREMITIES: Upper extremity strength judged to be 4/5 in her upper extremities and strength judged to be 4/5 in the lower extremities in all major muscle groups. The patient complains of hand pain, states she is having the beginnings of rheumatoid nodules, though I am not seeing that there present today. We reviewed the fact that opiate medications are being used to provide analgesia adequate to support activities of daily living, not attempting to achieve a specific pain score on the 0-10 Visual Analog Scale. The current opiate medications are providing sufficient analgesia to allow the patient to participate in activities of daily living. The patient is not exhibiting any aberrant behavior suggestive of drug diversion. The patient is not having any adverse reactions to medications. The patient is not suffering from daytime somnolence or mental acuity changes. The patient is managing opiate-induced constipation with appropriate jmvw-xlx-pjycbqj agents and dietary considerations. The patient was counseled on concern for caution with operating a motor vehicle while using opiate medications. A physical exam was performed and the patient's functional status was evaluated. All patients with back pain were advised against the bed rest greater than 4 days and were advised to return to normal activities. Pain score assessment was noted and the treatment plan was reviewed with the patient. All current medications, both prescribed and OTC were reviewed and reconciled on the electronic medical record. Tobacco screening was accomplished and smoking cessation was advised when indicated. BMI was noted and diet/exercise modification was recommended for all patients following outside normal parameters. I reviewed with the patient today their responsibilities to safeguard prescription medications, reviewed their responsibility to utilize medications only as prescribed by the physician. They are to seek and receive pain medications only from 1 physician group ( [facility]). They are to use 1 pharmacy and keep the clinic informed if they change pharmacies. Their responsibilities include making followup visits in a timely fashion and to avoid abrupt discontinuation of medication usage. Their responsibilities further [facility] [address] [place] [address] PAIN MANAGEMENT CONSULTATION Name: ALEX VALENTIN [id number] Admission: 11/10/18 Attend Phys: Khadijah Escobedo Discharge: Date of : 60 Report #: [id number] include bringing their medications (bottles from the pharmacy with residual pills) to the visit for possible confirmation of pill counts and the patient understands it is their responsibility to submit to random drug screens to ensure both that the medications prescribed are present, and that no other controlled substances are present. All prescriptions provided today were generated electronically. ASSESSMENT: 1. Chronic radicular pain status post failed back syndrome. 2. Myofascial pain. 3. Pain in bilateral knees, history of knee injections. 4. Migraines. 5. Anxiety. 6. Depression. 7. Tobacco use. 8. Hypertension. 9. Rheumatoid arthritis. 10. Gastroesophageal reflux disease. PLAN: 1. We discussed treatment options with the patient today. She feels that her pain medicine is currently helping her as best as she is able. She feels that her rheumatoid arthritis is getting worse. The patient is upset that she was encouraged to be more active. She says that she is not able to be active right now based on her urinary problems that she has been having and that has been causing her increasing GERD. I reassured the patient that we do want people to be as active as possible, that does help with her arthritis and her pain problems, but we understand that sometimes when you are sick, you are unable to do that. I did encourage her to be as active as possible when she is feeling better. 2. Script given today for her methadone 10 mg once a day, #30 and oxycodone 10/325, takes up to 4 times a day. 3. The patient will be seen in 1 month time period and she will see Dr. Perkins at that visit. The patient is seen today in collaboration with Dr. Perkins. <ELECTRONICALLY SIGNED> By: Khadijah Escobedo 11/13/18 0712 [id number] Khadijah Escobedo /chapo
== END ==
LOC: PAIN 11-09 11:28
DX: M54.16 Radiculopathy, lumbar region (principal); M79.18 Myalgia, other site; M06.9 Rheumatoid arthritis, unspecified; M25.561 Pain in right knee; M25.562 Pain in left knee; G43.909 Migraine, unspecified, not intractable, without status migrainosus; F32.9 Major depressive disorder, single episode, unspecified; F41.9 Anxiety disorder, unspecified; F17.200 Nicotine dependence, unspecified, uncomplicated; I10 Essential (primary) hypertension; K21.9 Gastro-esophageal reflux disease without esophagitis; Z79.899 Other long term (current) drug therapy

== ENCOUNTER → 2018-12-13 | Outpatient (CLI) | payer OTHER, BC ==
[~2018-12-13] VITALS: Ht 157.5 cm; Wt 69.9 kg
[2018-12-13 09:08] VITALS: BP 119/71
--- NOTE | 2018-12-13 09:09 | NUR ---
Pain Clinic Assessment: 1. History of Osteoarthritis: YES History of Rheumatoid Arthritis: YES Left Upper Extremity Right Lower Extremity Right Upper Extremity 2. Height: 5 ft. 2 in. 157.5 cm. Weight: 154.0 lb. oz. 69.854 kg. Patient's BMI: 28.2 3. Vital Signs: BP: 119/71 Pulse: 103 Resp: 20 Temp: 02 Sat: 93 ECG Mon: 4. Pain Intensity: 8 5. Fall Risk: Dizziness: N Needs help standing or walking: N Fallen in the last 3 months: N Fall risk comments: 6. Patient on Blood Thinner: None 7. History of Hypertension: Y 8. Opioid Therapy greater than 6 weeks: Y Opiate Contract Signed: 12/22/16 9. Risk Assessment Tool Provided: 1/RAMÓN 10. Functional Assessment Tool: 11. Recreational Drug Use: Never Drug Type: Tobacco Use: Former Smoker Tobacco Type: Amount or Packs/day: How Many Years: Alcohol Use: No Frequency: Quant:
== END ==
LOC: PAIN 12-06 10:11 → RAD 06:58
DX: M43.8X4 Other specified deforming dorsopathies, thoracic region (principal); M40.294 Other kyphosis, thoracic region

== ENCOUNTER 2019-01-10 11:53 | Emergency (ER) | payer OTHER, BC ==
[~2019-01-10] VITALS: Ht 157.5 cm; Wt 72.6 kg
[~2019-01-10 11:53] MED LIST changes: -KEFLEX500 M1 PO
[2019-01-10] MEDS ORDERED: KEFLEX500 M1 PO (13:24)
[2019-01-10 14:28] VITALS: BP 136/67
== END 2019-01-10 15:05 | disposition home or self-care (01) ==
LOC: ER 11:53
DX: S81.811A Laceration without foreign body, right lower leg, initial encounter (principal); I10 Essential (primary) hypertension; K21.9 Gastro-esophageal reflux disease without esophagitis; E11.43 Type 2 diabetes mellitus with diabetic autonomic (poly)neuropathy; K31.84 Gastroparesis; F41.9 Anxiety disorder, unspecified; F32.9 Major depressive disorder, single episode, unspecified; M81.0 Age-related osteoporosis without current pathological fracture; Z88.8 Allergy status to other drugs, medicaments and biological substances; Z88.6 Allergy status to analgesic agent; Z86.73 Personal history of transient ischemic attack (TIA), and cerebral infarction without residual deficits; Z86.2 Personal history of diseases of the blood and blood-forming organs and certain disorders involving the immune mechanism; Z88.2 Allergy status to sulfonamides; Z88.1 Allergy status to other antibiotic agents; Z90.710 Acquired absence of both cervix and uterus; Z90.721 Acquired absence of ovaries, unilateral; W10.9XXA Fall (on) (from) unspecified stairs and steps, initial encounter; Y92.89 Other specified places as the place of occurrence of the external cause; Y93.89 Activity, other specified; Y99.8 Other external cause status

== ENCOUNTER → 2019-01-10 | Outpatient (CLI) | payer OTHER, BC ==
[~2019-01-10] VITALS: Ht 157.5 cm; Wt 69.5 kg
[~2019-01-10] MED LIST changes: +KEFLEX500 M1 PO
--- NOTE | ~2019-01-10 | HPC ---
[facility] [place] [place] [address] PAIN MANAGEMENT CONSULTATION Name: BARBIEALEX NATHANAEL Room #: REG [facility].#: [id number] Admission: 01/10/19 ������������������ Attend Phys: Rehana Perkins MD Discharge: ������������������ Date of : 60 Report #: [id number] THIS REPORT FOR: //name// CC: Rehana Aguirre DATE OF SERVICE: 01/10/2019 PRIMARY CARE PHYSICIAN: Yvan Aguirre MD CHIEF COMPLAINT: "I fell on my right knee." HISTORY: The patient is a 58-year-old female who has been followed in the pain clinic. As you recall, she has a significant history of pain and easy bruisability. She has had back surgery with an L4-L5 fusion. Has pain and discomfort in her arms as well as in her legs. States that she fell on her right knee. Has had a significant amount of bruising in this area. Has had some swelling in her ankle. Notes that her ankles are tender. The patient is still somewhat concerned about her failing health. She has noted fracturing of her teeth. She feels that she needs to be followed by a dentist. At this juncture, she does not want dentures. She has returned today with the hopes of having renew of her medication. Has been using a back brace. The patient also has GERD. ALLERGIES: SULFA, TEMAZEPAM, COMPAZINE, NAPROSYN, METHOTREXATE, CIPROFLOXACIN, METOPROLOL, METFORMIN, AND TRAZODONE. CURRENT MEDICATIONS: Methadone 10 mg 1 p.o. b.i.d., Flexeril 20 mg, Kenalog knee injections in the past, Amaryl 4 mg for elevated blood sugars, Prozac 20 mg, calcium, losartan 100 mg b.i.d., amlodipine 5 mg b.i.d., alprazolam 0.5 mg t.i.d., Carafate 1 g q.i.d., Prilosec 20 mg b.i.d., Plaquenil 200 mg b.i.d., Voltaren gel to her hands, and Pravachol 20 mg daily. PAIN CLINIC ASSESSMENT/PQRS. 1. Osteoarthritis. The patient has some arthritic changes in her back and had a number of compression fractures. 2. Height 5 feet 2 inches, weight 153 pounds, BMI is 28.0. 3. Vital Signs: Blood pressure 135/76, pulse is 120, respiratory rate 20, room air saturation 90. 4. Pain intensity 5/10. 5. Fall risk. The patient has fallen and injured her right knee. 6. Blood thinner: The patient is not on a blood thinning medication, but bruises easily. 7. Hypertension. The patient is being treated for hypertension. 8. Opioids greater than 6 weeks. The patient receives her medication from one source, pain clinic. [address] [address] PAIN MANAGEMENT CONSULTATION Name: BARBIEALEX LEE Room #: REG [facility] Angelica#: [id number] Admission: 01/10/19 ������������������ Attend Phys: Rehana Perkins MD Discharge: ������������������ Date of : 60 Report #: [id number] 9. Risk assessment tool, low for opioid risk. 10. Functional assessment tool 53/70. 11. Recreational drug use. The patient denies use of recreational drugs. 12. Tobacco: The patient is a former smoker. 13. Alcohol: The patient denies use of alcoholic beverages. PHYSICAL EXAMINATION: GENERAL: The patient is a well-developed, well-nourished white female. Appears slightly older than her stated age. Speech is fluent. The patient still appears somewhat depressed. HEENT: Normocephalic, atraumatic. Extraocular eye muscles intact. Sclerae nonicteric. Mucous membranes are moist. The patient has a number of teeth which are fractured and carious. SKIN: The patient has a number of bruises on her forearms as well as denotes areas of easy bruisability. Notes bruising of her right knee from which she fell, has a significant tear in the skin on the anterior portion of her tibia on the right side. LUNGS: Clear to auscultation without rhonchi. ABDOMEN: Nontender. Bowel sounds present. MUSCULOSKELETAL: The patient with significant kyphosis. Complains of chest area pain. IMPRESSION: 1. Pain in the right leg and a significant tear after a fall in the anterior portion of her olivier, which is weeping. 2. Pain above her shoulders with movement of her hand above the neck. 3. Pain in the knees with audible cracking, scratching, grinding sounds. 4. Migraines. 5. Anxiety. 6. Depression. 7. Tobacco. 8. Hypertension. 9. Arthritis. 10. Gastroesophageal reflux. 11. Easily fracturing of teeth and poor dentition. RECOMMENDATIONS: We discussed treatment options with the patient. At this juncture, we will continue with her medications. We have noted the significant tear of her skin over the right anterior olivier area. We have explained to her that this is weeping and is greater than 2 inches long. This is a bad area for an infection. The patient might develop osteomyelitis. This is the area that can be quite difficult to graft because of the lack of subcutaneous tissue and muscle. We recommend that she go to the Emergency Room immediately and follow up with a public information specialist in an effort to preserve her right lower extremity. She will go immediately from the pain clinic to the Emergency Room for treatment after this. A script for her medications have been written. [address] [address] PAIN MANAGEMENT CONSULTATION Name: ALEX VALENTIN NATHANAEL [id number] Admission: 01/10/19 ������������������ Attend Phys: Rehana Perkins MD Discharge: ������������������ Date of : 60 Report #: [id number] We would like to thank you for letting us participate in her care. We hope she continues to improve. ��������������������������������������������� ���������������������������������������� By: ��������������������������������������������� [id number] Rehana Perkins MD /VIVIENNE
[2019-01-10 10:59] VITALS: BP 135/76
--- NOTE | 2019-01-10 11:01 | NUR ---
Pain Clinic Assessment: 1. History of Osteoarthritis: YES History of Rheumatoid Arthritis: YES Left Upper Extremity Right Lower Extremity Right Upper Extremity 2. Height: 5 ft. 2 in. 157.5 cm. Weight: 153.2 lb. oz. 69.491 kg. Patient's BMI: 28.0 3. Vital Signs: BP: 135/76 Pulse: 120 Resp: 20 Temp: 02 Sat: 90 ECG Mon: 4. Pain Intensity: 5 5. Fall Risk: Dizziness: Needs help standing or walking: Fallen in the last 3 months: Fall risk comments: 6. Patient on Blood Thinner: None 7. History of Hypertension: Y 8. Opioid Therapy greater than 6 weeks: Y Opiate Contract Signed: 12/22/16 9. Risk Assessment Tool Provided: Jameel/RAMÓN 10. Functional Assessment Tool: 11. Recreational Drug Use: Never Drug Type: Tobacco Use: Former Smoker Tobacco Type: Amount or Packs/day: How Many Years: Alcohol Use: No Frequency: Quant:
== END ==
LOC: PAIN 01-03 13:30
DX: S81.011A Laceration without foreign body, right knee, initial encounter (principal); G43.909 Migraine, unspecified, not intractable, without status migrainosus; F32.9 Major depressive disorder, single episode, unspecified; F41.9 Anxiety disorder, unspecified; F17.200 Nicotine dependence, unspecified, uncomplicated; I10 Essential (primary) hypertension; M19.90 Unspecified osteoarthritis, unspecified site; K21.9 Gastro-esophageal reflux disease without esophagitis; W19.XXXA Unspecified fall, initial encounter; Y93.89 Activity, other specified; Y92.89 Other specified places as the place of occurrence of the external cause; Y99.8 Other external cause status; Z79.899 Other long term (current) drug therapy

== ENCOUNTER 2019-01-13 19:34 | Emergency (ER) | payer OTHER, BC ==
[~2019-01-13] VITALS: Ht 157.5 cm; Wt 70.8 kg
[~2019-01-13 19:34] MED LIST changes: +KEFLEX500 M1 PO
[2019-01-13 21:03] VITALS: BP 107/59
== END 2019-01-13 21:03 | disposition home or self-care (01) ==
LOC: ER 19:34
DX: S81.811D Laceration without foreign body, right lower leg, subsequent encounter (principal); I10 Essential (primary) hypertension; E11.43 Type 2 diabetes mellitus with diabetic autonomic (poly)neuropathy; K31.84 Gastroparesis; M06.9 Rheumatoid arthritis, unspecified; G47.30 Sleep apnea, unspecified; G43.909 Migraine, unspecified, not intractable, without status migrainosus; F32.9 Major depressive disorder, single episode, unspecified; F41.9 Anxiety disorder, unspecified; M81.0 Age-related osteoporosis without current pathological fracture; Z88.8 Allergy status to other drugs, medicaments and biological substances; Z88.6 Allergy status to analgesic agent; Z86.2 Personal history of diseases of the blood and blood-forming organs and certain disorders involving the immune mechanism; Z88.2 Allergy status to sulfonamides; Z88.1 Allergy status to other antibiotic agents; Z90.710 Acquired absence of both cervix and uterus; Z90.721 Acquired absence of ovaries, unilateral; X58.XXXD Exposure to other specified factors, subsequent encounter

== ENCOUNTER → 2019-02-07 | Outpatient (CLI) | payer OTHER, BC ==
[~2019-02-07] VITALS: Ht 157.5 cm; Wt 65.5 kg
[2019-02-07 10:24] VITALS: BP 147/81
--- NOTE | 2019-02-07 10:39 | NUR ---
Pain Clinic Assessment: 1. History of Osteoarthritis: YES History of Rheumatoid Arthritis: YES Left Upper Extremity Right Lower Extremity Right Upper Extremity 2. Height: 5 ft. 2 in. 157.5 cm. Weight: 144.4 lb. oz. 65.499 kg. Patient's BMI: 26.4 3. Vital Signs: BP: 147/81 Pulse: 110 Resp: 16 Temp: 02 Sat: 96 ECG Mon: 4. Pain Intensity: 53 5. Fall Risk: Dizziness: N Needs help standing or walking: N Fallen in the last 3 months: N Fall risk comments: 6. Patient on Blood Thinner: None 7. History of Hypertension: Y 8. Opioid Therapy greater than 6 weeks: Y Opiate Contract Signed: 12/22/16 9. Risk Assessment Tool Provided: Jameel/RAMÓN 10. Functional Assessment Tool: 11. Recreational Drug Use: Never Drug Type: Tobacco Use: Former Smoker Tobacco Type: Amount or Packs/day: How Many Years: Alcohol Use: No Frequency: Quant:
--- NOTE | 2019-02-08 13:41 | HPC ---
[facility] [address] [address] PAIN MANAGEMENT CONSULTATION Name: BARBIEALEX LEE [id number] Admission: 02/07/19 ������������������ Attend Phys: Khadijah Escobedo Discharge: ������������������ Date of : 60 Report #: [id number] THIS REPORT FOR: //name// CC: Khadijah Escobedo Yvan Aguirre DATE OF SERVICE: 02/07/2019 CHIEF COMPLAINT: All over body pain, chronic knee pain, back pain, neck pain, status post failed back surgery. HISTORY OF PRESENT ILLNESS: This is a 58-year-old female who returns to the pain clinic today for refill of her medication management. At her last visit, she had fallen and had a significant skin tear on her right leg. The patient tells me today she is going to the wound clinic tomorrow as a follow up for her recent ER visits after the fall and her skin tear. The patient tells me that it is still oozing some, though she is keeping it dressed. She does have bandages on her arms from other skin tears. The patient tells me that her pain score today is 3/10. She is having a very good day except that she has been complaining of some right rib pain today. The patient thinks it may be gas related. She said otherwise her back and neck are doing pretty good. She denies any problems with constipation. She takes fiber and drinks plenty of liquid. CURRENT ALLERGIES: SULFA, TEMAZEPAM, COMPAZINE, NAPROXEN, METHOTREXATE, CIPRO, METOPROLOL, AMOXICILLIN, METFORMIN, TRAZODONE, LEFLUNOMIDE. CURRENT LIST OF MEDICATIONS: Oxycodone 10/325 up to 4 times a day, methadone 10 mg at noon, cyclobenzaprine 10 mg 3 times a day as needed, Plaquenil 200 mg b.i.d., biotin 1000 mcg daily, zinc 50 mg daily, vitamin B12 500 mcg daily, multivitamin daily, folic acid 1 mg daily, fiber 500 mg daily, glimepiride or Amaryl 4 mg as needed, Prozac 20 mg b.i.d., losartan 100 mg b.i.d., amlodipine 10 mg daily, Xanax 0.5 mg t.i.d., Carafate 1 gram 4 times a day, omeprazole 20 mg b.i.d., Voltaren gel as needed and Pravastatin 20 mg at bedtime. PQRS: 1. Osteoarthritis in her back and rheumatoid arthritis in her upper and lower extremities. 2. Height is 5 feet 2 inches, weight is 144, BMI is 26. 3. VITAL SIGNS: 147/81, pulse is 110, respirations 16, oxygen sat is 96. 4. Pain score 3/10. 5. Fall risk: Denies dizziness. Does not need help walking or standing. Has not fallen in the last 3 months. 6. The patient is not on any blood thinners and does take medicine for hypertension. 7. Opioid therapy is greater than 6 weeks. Therefore, an opioid signed [address] [address] PAIN MANAGEMENT CONSULTATION Name: ALEX VALENTIN Room #: REG CLI Angelica#: [id number] Admission: 02/07/19 ������������������ Attend Phys: Khadijah Escobedo Discharge: ������������������ Date of : 60 Report #: [id number] contract is on the chart. 8. Risk assessment tool is low. Functional assessment 53/70. 9. Recreational drug use. She denies. She is a former smoker and does not drink alcohol. We did check the prescription monitoring system. The patient is filling appropriately for her medicines from Dr. Perkins and is due for her medications today and there is a recent drug screen on the chart in the past year. PHYSICAL EXAMINATION: GENERAL: This is a well-developed, well-nourished, well-hydrated white female that appears her stated age or slightly older. The patient's affect is slightly up today. Occasionally, she is depressed on visits. HEENT: Normocephalic, atraumatic. Extraocular eye muscles are intact. Mucous membranes are moist. Several teeth are fractured and carious. SKIN: The patient has significant skin tear on her right tibia of her leg. It is dressed with a bandage today. The patient tells me it is oozing and weeping. The patient does have various bruises on her arms and throughout her legs and various bandages on her bilateral arms from numerous skin tears. ABDOMEN: Nontender. Complains of right upper quadrant pain today. MUSCULOSKELETAL: The patient has significant kyphosis. Lower extremity strength judged to be 5/5 in lower extremity strength. ASSESSMENT: 1. Bilateral shoulder, neck and hand pain. 2. Pain in her knees. 3. Skin tear on her right tibia. 4. Migraines. 5. Anxiety. 6. Depression. 7. Hypertension. 8. Osteoarthritis and rheumatoid arthritis. 9. Gastroesophageal reflux. We reviewed the fact that opiate medications are being used to provide analgesia adequate to support activities of daily living, not attempting to achieve a specific pain score on the 0-10 Visual Analog Scale. The current opiate medications are providing sufficient analgesia to allow the patient to participate in activities of daily living. The patient is not exhibiting any aberrant behavior suggestive of drug diversion. The patient is not having any adverse reactions to medications. The patient is not suffering from daytime somnolence or mental acuity changes. The patient is managing opiate-induced constipation with appropriate yivx-lwq-znsitxk agents and dietary considerations. The patient was counseled on concern for caution with operating a motor vehicle while using opiate medications. A physical exam was performed and the patient's functional status was evaluated. [facility] [address] [place] [address] PAIN MANAGEMENT CONSULTATION Name: ALEX VALENTIN [facility]: [facility] [id number] Admission: 02/07/19 ������������������ Attend Phys: Khadijah Escobedo Discharge: ������������������ Date of : 60 Report #: [id number] All patients with back pain were advised against the bed rest greater than 4 days and were advised to return to normal activities. Pain score assessment was noted and the treatment plan was reviewed with the patient. All current medications, both prescribed and OTC were reviewed and reconciled on the electronic medical record. Tobacco screening was accomplished and smoking cessation was advised when indicated. BMI was noted and diet/exercise modification was recommended for all patients following outside normal parameters. I reviewed with the patient today their responsibilities to safeguard prescription medications, reviewed their responsibility to utilize medications only as prescribed by the physician. They are to seek and receive pain medications only from 1 physician group ( [facility]). They are to use 1 pharmacy and keep the clinic informed if they change pharmacies. Their responsibilities include making followup visits in a timely fashion and to avoid abrupt discontinuation of medication usage. Their responsibilities further include bringing their medications (bottles from the pharmacy with residual pills) to the visit for possible confirmation of pill counts and the patient understands it is their responsibility to submit to random drug screens to ensure both that the medications prescribed are present, and that no other controlled substances are present. All prescriptions provided today were generated electronically. PLAN: 1. We discussed treatment options with the patient today. The patient tells me that her pain is very well controlled recently. She has been feeling good lately except for her skin tear, she has been doing well. She has been redressing those as needed and is going to see the wound clinic tomorrow to address her multiple skin issues. 2. Script was given today to the patient for Percocet 10/325, #120 and methadone 10 mg #30. The patient is to take one tablet at noon. 3. The patient will follow up in 1 month time period. 4. The patient is seen with Dr. Perkins who collaborated care today. ��������������������������������������������� <ELECTRONICALLY SIGNED> ���������������������������������������� By: Khadijah Escobedo ��������������������������������������������� 02/08/19 1341 [id number] Khadijah Escobedo /chapo
== END ==
LOC: PAIN
DX: M54.2 Cervicalgia (principal); M25.511 Pain in right shoulder; M25.512 Pain in left shoulder; M25.561 Pain in right knee; M25.562 Pain in left knee; F32.9 Major depressive disorder, single episode, unspecified; I10 Essential (primary) hypertension; K21.9 Gastro-esophageal reflux disease without esophagitis; G43.909 Migraine, unspecified, not intractable, without status migrainosus; F41.9 Anxiety disorder, unspecified; M06.9 Rheumatoid arthritis, unspecified; Z88.8 Allergy status to other drugs, medicaments and biological substances; Z79.899 Other long term (current) drug therapy

== ENCOUNTER → 2019-02-12 | Outpatient (CLI) | payer OTHER, BC | LOC: HYPER 02-05 13:10 | DX: E11.622 Type 2 diabetes mellitus with other skin ulcer (principal); L97.811 Non-pressure chronic ulcer of other part of right lower leg limited to breakdown of skin; E11.39 Type 2 diabetes mellitus with other diabetic ophthalmic complication; H40.9 Unspecified glaucoma; H42 Glaucoma in diseases classified elsewhere; I10 Essential (primary) hypertension; L84 Corns and callosities; K21.9 Gastro-esophageal reflux disease without esophagitis; M81.0 Age-related osteoporosis without current pathological fracture; E78.5 Hyperlipidemia, unspecified; M19.90 Unspecified osteoarthritis, unspecified site; M06.9 Rheumatoid arthritis, unspecified; G47.33 Obstructive sleep apnea (adult) (pediatric); F41.9 Anxiety disorder, unspecified; F32.9 Major depressive disorder, single episode, unspecified; Z87.891 Personal history of nicotine dependence ==

== ENCOUNTER → 2019-02-23 | Outpatient (CLI) | payer OTHER, BC | LOC: HYPER 02-20 06:59 | DX: E11.622 Type 2 diabetes mellitus with other skin ulcer (principal); L97.811 Non-pressure chronic ulcer of other part of right lower leg limited to breakdown of skin; L84 Corns and callosities; K21.9 Gastro-esophageal reflux disease without esophagitis; M81.0 Age-related osteoporosis without current pathological fracture; I10 Essential (primary) hypertension; E11.39 Type 2 diabetes mellitus with other diabetic ophthalmic complication; H40.9 Unspecified glaucoma; H42 Glaucoma in diseases classified elsewhere; E78.5 Hyperlipidemia, unspecified; M19.90 Unspecified osteoarthritis, unspecified site; G47.33 Obstructive sleep apnea (adult) (pediatric); F41.9 Anxiety disorder, unspecified; F32.9 Major depressive disorder, single episode, unspecified; Z79.01 Long term (current) use of anticoagulants; Z87.891 Personal history of nicotine dependence ==

== ENCOUNTER → 2019-03-09 | Outpatient (CLI) | payer OTHER, BC ==
[~2019-03-09] VITALS: Ht 157.5 cm; Wt 64.9 kg
--- NOTE | ~2019-03-09 | HPC ---
[facility] [place] [address] PAIN MANAGEMENT CONSULTATION Name: BARBIEALEX LEE Room #: REG [facility] Zulema.#: [id number] Admission: 03/09/19 ������������������ Attend Phys: Rehana Perkins MD Discharge: ������������������ Date of : 60 Report #: [id number] THIS REPORT FOR: //name// CC: Rehana Aguirre DATE OF SERVICE: 03/09/2019 CHIEF COMPLAINT: "Here for medication renewal, things are better with my leg." HISTORY: The patient is a 58-year-old female who has been followed in the pain clinic because of chronic pain. She has pain in her knees. Notes increased discomfort secondary to nmmw-qi-tfrb pain. As you may recall, she has had back surgery. She has had L4-L5 fusion with bandar and screws placement. She did develop traumatic lesion to her leg. This involves the right leg. She was seen in the Emergency Room. She was then directed to the [facility]. She states that things are working reasonably well. She has seen the folks in the wound care area. She is scheduled to see them in the next few days. She still remains somewhat disconcerted because of her teeth continue to fracture. She has returned today for renewal of her medications. The patient is being treated for rheumatoid arthritis. ALLERGIES: SULFA, TEMAZEPAM, COMPAZINE, NAPROSYN, METHOTREXATE, CIPROFLOXACIN, METOPROLOL, METFORMIN, and TRAZODONE. CURRENT MEDICATIONS: Methadone 10 mg 1 p.o. b.i.d., Flexeril 20 mg, Kenalog knee injections in the past, Amaryl 4 mg for elevated blood sugars, Prozac 20 mg, calcium, losartan 100 mg b.i.d., amlodipine 5 mg b.i.d., alprazolam 0.5 mg, Carafate 1 gram q.i.d., Prilosec 20 mg b.i.d., Plaquenil 200 mg b.i.d., Voltaren gel to hands, Pravachol 20 mg. PAIN CLINIC ASSESSMENT/PQRS: 1. Osteoarthritis. The patient has some osteoarthritic changes involving her back as well as her knees. Has a grating sensation in her knees. She has had a compression fracture. 2. The patient is not being treated for rheumatoid arthritis. 3. Height 5 feet 2 inches, weight 143 pounds, BMI is 26.1. 4. Vital signs: Blood pressure 153/88, pulse 115, respiratory rate 18, room air saturation 93%, temperature ____. 5. Pain intensity 01/07. 6. Fall history: The patient has not fallen since we saw her last. 7. Blood thinner. The patient is not on a blood thinning medication. 8. Hypertension. The patient is being treated for hypertension. 9. Opioids greater than 6 weeks. The patient receives her medication from the pain clinic. 10. Risk assessment tool, low for opioid use. [address] [address] PAIN MANAGEMENT CONSULTATION Name: ALEX VALENTIN [id number] Admission: 03/09/19 ������������������ Attend Phys: Rehana Perkins MD Discharge: ������������������ Date of : 60 Report #: [id number] 11. Functional assessment tool . 12. Recreational drug use. The patient denies use of recreational drugs. 13. Tobacco: The patient is a former smoker. 14. Alcohol: The patient denies use of alcoholic beverages at this juncture. PHYSICAL EXAMINATION: GENERAL: The patient is a well-developed, well-nourished white female. She appears much more relaxed today. Her affect is appropriate. Speech is fluent. HEENT: Normocephalic, atraumatic. Extraocular eye muscles intact. Sclerae nonicteric. Mucous membranes are moist. NECK: Without adenopathy or JVD. The patient still complains of fracturing of her teeth. EXTEMITIES: Upper extremity muscle strength judged to be 4+/5 in the left and the right. The patient has set of gloves on her hands with the fingers extended with a pair of driving gloves. The patient has well-healed bruises along her forearm of different ages. The patient has a bandage over the right olivier area. It does not appear to be grossly infected. States that she is scheduled to see the wound clinic in a few days. Has some discoloration in and around the area consistent with bruising. Muscle strength in the lower extremity, judged to be 5-/5 for the major muscle groups in the lower extremity. ASSESSMENT: 1. Bilateral neck, shoulder and hand pain. 2. Pain in the knees. 3. Skin tear on the right tibia, improved under the direction of the wound care physician. 4. Migraines. 5. Anxiety. 6. Depression. 7. Hypertension. 8. Osteoarthritis and rheumatoid arthritis. 9. Gastroesophageal reflux. RECOMMENDATIONS: We discussed treatment options with the patient. At this juncture, she has returned for renewal of her medications. She feels that her medications continue to be helpful. She seems much more relaxed and less anxious today. Her wound appears to be healing reasonably well. She is glad that she did go to the Emergency Room. When she did, she was told that there was an infection in the area and she was given penicillin. We again reviewed the possible complications of infection in the blood stream. The patient has had surgery in the lower portion of her back with bandar placements. We explained that could be a nidus for an infection. Overall, she feels things are going reasonably well, happy with the way things are progressing with her healing and will follow up with the wound clinic in the near future. A script for her medications have been rewritten. She will continue with her medications and call us if she has any concerns. We would like to thank you for letting us [address] [address] PAIN MANAGEMENT CONSULTATION Name: BARBIEALEX NATHANAEL Room #: REG [facility]#: [id number] Admission: 03/09/19 ������������������ Attend Phys: Rehana Perkins MD Discharge: ������������������ Date of : 60 Report #: [id number] participate in her care. A script for methadone 10 mg 1 p.o., oxycodone 10/325 one p.o. q.i.d. and cyclobenzaprine were rewritten. ��������������������������������������������� ���������������������������������������� By: ��������������������������������������������� [id number] Rehana Perkins MD /nt
[2019-03-09 10:23] VITALS: BP 153/88
--- NOTE | 2019-03-09 10:27 | NUR ---
Pain Clinic Assessment: 1. History of Osteoarthritis: YES History of Rheumatoid Arthritis: YES Left Upper Extremity Right Lower Extremity Right Upper Extremity 2. Height: 5 ft. 2 in. 157.5 cm. Weight: 143.0 lb. oz. 64.864 kg. Patient's BMI: 26.1 3. Vital Signs: BP: 153/88 Pulse: 115 Resp: 18 Temp: 02 Sat: 93 ECG Mon: 4. Pain Intensity: 3 5. Fall Risk: Dizziness: N Needs help standing or walking: N Fallen in the last 3 months: N Fall risk comments: 6. Patient on Blood Thinner: None 7. History of Hypertension: Y 8. Opioid Therapy greater than 6 weeks: Y Opiate Contract Signed: 12/22/16 9. Risk Assessment Tool Provided: 1/RAMÓN 10. Functional Assessment Tool: 11. Recreational Drug Use: Never Drug Type: Tobacco Use: Former Smoker Tobacco Type: Amount or Packs/day: How Many Years: Alcohol Use: No Frequency: Quant:
== END ==
LOC: PAIN 06:44
DX: M25.561 Pain in right knee (principal); M25.562 Pain in left knee; M54.2 Cervicalgia; M25.511 Pain in right shoulder; M25.512 Pain in left shoulder; M79.641 Pain in right hand; M79.642 Pain in left hand; M19.90 Unspecified osteoarthritis, unspecified site; G43.909 Migraine, unspecified, not intractable, without status migrainosus; F41.9 Anxiety disorder, unspecified; F32.9 Major depressive disorder, single episode, unspecified; I10 Essential (primary) hypertension; K21.9 Gastro-esophageal reflux disease without esophagitis; Z79.899 Other long term (current) drug therapy

== ENCOUNTER → 2019-03-19 | Outpatient (CLI) | payer OTHER, BC | LOC: HYPER 03-12 06:50 | DX: E11.622 Type 2 diabetes mellitus with other skin ulcer (principal); L97.818 Non-pressure chronic ulcer of other part of right lower leg with other specified severity; E11.39 Type 2 diabetes mellitus with other diabetic ophthalmic complication; H40.9 Unspecified glaucoma; H42 Glaucoma in diseases classified elsewhere; I10 Essential (primary) hypertension; L84 Corns and callosities; K21.9 Gastro-esophageal reflux disease without esophagitis; M81.0 Age-related osteoporosis without current pathological fracture; E78.5 Hyperlipidemia, unspecified; M19.90 Unspecified osteoarthritis, unspecified site; M06.9 Rheumatoid arthritis, unspecified; G47.33 Obstructive sleep apnea (adult) (pediatric); F41.9 Anxiety disorder, unspecified; F32.9 Major depressive disorder, single episode, unspecified; Z87.891 Personal history of nicotine dependence; Z79.01 Long term (current) use of anticoagulants ==

== ENCOUNTER → 2019-04-06 | Outpatient (CLI) | payer OTHER, BC ==
[~2019-04-06] VITALS: Ht 157.5 cm; Wt 68.8 kg
--- NOTE | ~2019-04-06 | HPC ---
[facility] [address] [place] [address] PAIN MANAGEMENT CONSULTATION Name: BARBIEALEX LEE Room #: REG [facility]..#: [id number] Admission: 04/06/19 ������������������ Attend Phys: Rehana Perkins MD Discharge: ������������������ Date of : 60 Report #: [id number] THIS REPORT FOR: //name// CC: Rehana Aguirre DATE OF SERVICE: 04/06/2019 CHIEF COMPLAINT: "Here for medication renewal/medical management. The pain is better in my leg." HISTORY: The patient is a 58-year-old female, who has been followed in the Pain Clinic because of chronic pain. As you recall, she has a number of pain generators. She has pain in her knee because of upcd-cd-kyha discomfort. Also, she has had surgery in the past with L4-L5 fusion with screw placements and rods. She had a lesion involving her right leg. She has followed up in the Wound Clinic. Things have healed reasonably nice. She is no longer going to the Wound Clinic because of the progress she has made. She is not having any concerns with this lesion now. She continues to have problems with her teeth. States that they are cracking and that she needs to seek dental care. She is not sure how much this will cost. Overall, things are going reasonably well and she has returned today for evaluation of her medication. ALLERGIES: SULFA, TEMAZEPAM, COMPAZINE, NAPROSYN, METHOTREXATE, CIPROFLOXACIN, METOPROLOL, METFORMIN, TRAZODONE. MEDICATIONS: Methadone 10 mg 1 p.o. b.i.d., Flexeril 20 mg, Kenalog injections in the knee in the past, Amaryl 4 mg for elevated blood sugar, Prozac 20 mg, calcium, losartan 100 mg b.i.d., amlodipine 5 mg b.i.d., alprazolam 0.5 mg, Carafate 1 mg q.i.d., Prilosec 20 mg b.i.d., Plaquenil 20 mg b.i.d., Voltaren gel to hands, and Pravachol 20 mg. PAIN CLINIC ASSESSMENT AND PQRS: 1. Osteoarthritis: The patient has some arthritic changes involving her back as well as her knees. She has a grating sensation in her knees with ooki-wa-dyix type of discomfort. She has had compression fractures in the past. She is not being treated for rheumatoid arthritis. 2. Height 5 feet 2 inches, 151 pounds, BMI is 27.7. 3. Vital Signs: Blood pressure 146/79, pulse 108, respiratory rate is 18, room air saturation is 95%. 4. Pain intensity: 6/10. 5. Fall history: The patient has not fallen in the last 3 months. 6. Blood thinner: The patient is not on a blood thinning medication. 7. Hypertension: The patient is being treated for hypertension. 8. Opioids greater than 6 weeks: The patient receives her medications through the Pain Clinic. [address] [address] PAIN MANAGEMENT CONSULTATION Name: ALEX VALENTIN Room #: REG CLIrina Dominguez#: [id number] Admission: 04/06/19 ������������������ Attend Phys: Rehana Perkins MD Discharge: ������������������ Date of : 60 Report #: [id number] 9. Risk assessment tool: Low for opioid use. 10. Functional assessment tool: 53/70. 11. Recreational drug use: The patient denies. 12. Tobacco: The patient is a former smoker. 13. Alcohol: The patient denies frequent use of alcoholic beverages. PHYSICAL EXAMINATION: GENERAL: The patient is a well-developed, well-nourished, white female. She appears less nervous today, much more relaxed. Affect is appropriate. Speech is fluent. HEENT: Normocephalic, atraumatic. Extraocular eye muscles intact. Sclerae nonicteric. Mucous membranes are moist. The patient still complains of fracturing of teeth. NECK: Without adenopathy or JVD. MUSCULOSKELETAL: The patient's upper extremity muscle strength is 4+/5 on the left and the right. The patient has a well-healing area in the forearms as compared to the last. She bruises quite easily. No new bruises are noted. The patient has a well-healing scar in the right lower leg near the anterior portion of her olivier. Muscles in the lower extremity are judged to be 5-/5 for the major muscle groups in the lower extremity. The patient uses her hands to go from a sitting to a standing position before ambulating. ASSESSMENT: 1. Bilateral neck, shoulder, and hand pain. 2. Pain in the knees. 3. Skin tear, which has improved and healed in the tibial area. 4. Migraines. 5. Anxiety. 6. Depression. 7. Hypertension. 8. Osteoarthritis and rheumatoid arthritis. 9. Gastroesophageal reflux. RECOMMENDATIONS: We discussed treatment options with the patient. At this juncture, we will continue with her medications. She feels that the medications are helpful and they enable her to engage in activities she would not be able to. She continues to heal nicely. She is still concerned regarding her teeth, they have cracked and broken off. She continues to have some pain in her low back area. She has pain in the right knee. She feels like a gvoh-ow-ndhk component in the knee area. She is considering restarting Prolia. She will continue with her medication. A script for methadone 10 mg 1 p.o. daily has been written. She also continues with oxycodone 10 mg 1 p.o. every 6 hours p.r.n. The patient will also continue with cyclobenzaprine. Hopefully, these items will continue to help the patient control her pain. Overall, she looks [facility] [address] [place] [address] PAIN MANAGEMENT CONSULTATION Name: BARBIEALEX NATHANAEL Room #: REG [facility].#: [id number] Admission: 04/06/19 ������������������ Attend Phys: Rehana Perkins MD Discharge: ������������������ Date of : 60 Report #: [id number] better today, she appears less anxious, seems more relaxed. Hopefully, she will be able to get the dental help that she needs. ��������������������������������������������� ���������������������������������������� By: ��������������������������������������������� [id number] Rehana Perkins MD /chapo
[2019-04-06 10:59] VITALS: BP 146/79
--- NOTE | 2019-04-06 11:03 | NUR ---
Pain Clinic Assessment: 1. History of Osteoarthritis: YES History of Rheumatoid Arthritis: YES Left Upper Extremity Right Lower Extremity Right Upper Extremity 2. Height: 5 ft. 2 in. 157.5 cm. Weight: 151.6 lb. oz. 68.765 kg. Patient's BMI: 27.7 3. Vital Signs: BP: 146/79 Pulse: 108 Resp: 18 Temp: 02 Sat: 95 ECG Mon: 4. Pain Intensity: 6 5. Fall Risk: Dizziness: N Needs help standing or walking: N Fallen in the last 3 months: N Fall risk comments: 6. Patient on Blood Thinner: None 7. History of Hypertension: Y 8. Opioid Therapy greater than 6 weeks: Y Opiate Contract Signed: 12/22/16 9. Risk Assessment Tool Provided: 1/RAMÓN 10. Functional Assessment Tool: 11. Recreational Drug Use: Never Drug Type: Tobacco Use: Former Smoker Tobacco Type: Amount or Packs/day: How Many Years: Alcohol Use: No Frequency: Quant:
== END ==
LOC: PAIN 06:49
DX: Z76.0 Encounter for issue of repeat prescription (principal); M17.0 Bilateral primary osteoarthritis of knee; M47.819 Spondylosis without myelopathy or radiculopathy, site unspecified; I10 Essential (primary) hypertension; M54.2 Cervicalgia; M25.511 Pain in right shoulder; M25.512 Pain in left shoulder; G43.909 Migraine, unspecified, not intractable, without status migrainosus; F41.9 Anxiety disorder, unspecified; F32.9 Major depressive disorder, single episode, unspecified; M06.9 Rheumatoid arthritis, unspecified; K21.9 Gastro-esophageal reflux disease without esophagitis; Z88.2 Allergy status to sulfonamides; Z88.8 Allergy status to other drugs, medicaments and biological substances; Z88.1 Allergy status to other antibiotic agents; Z79.899 Other long term (current) drug therapy; Z79.891 Long term (current) use of opiate analgesic

== ENCOUNTER → 2019-05-10 | Outpatient (CLI) | payer OTHER, BC ==
[~2019-05-10] VITALS: Ht 157.5 cm; Wt 70.5 kg
[2019-05-10 08:40] VITALS: BP 138/91
--- NOTE | 2019-05-10 08:54 | NUR ---
Pain Clinic Assessment: 1. History of Osteoarthritis: YES History of Rheumatoid Arthritis: YES Left Upper Extremity Right Lower Extremity Right Upper Extremity 2. Height: 5 ft. 2 in. 157.5 cm. Weight: 155.4 lb. oz. 70.489 kg. Patient's BMI: 28.4 3. Vital Signs: BP: 138/91 Pulse: 106 Resp: 16 Temp: 02 Sat: 96 ECG Mon: 4. Pain Intensity: 5 5. Fall Risk: Dizziness: N Needs help standing or walking: N Fallen in the last 3 months: N Fall risk comments: 6. Patient on Blood Thinner: None 7. History of Hypertension: Y 8. Opioid Therapy greater than 6 weeks: Y Opiate Contract Signed: 12/22/16 9. Risk Assessment Tool Provided: 1/RAMÓN 10. Functional Assessment Tool: 11. Recreational Drug Use: Never Drug Type: Tobacco Use: Former Smoker Tobacco Type: Amount or Packs/day: How Many Years: Alcohol Use: No Frequency: Quant:
--- NOTE | 2019-05-10 11:49 | HPC ---
[facility] [place] [address] [address] [place] [address] PAIN MANAGEMENT CONSULTATION Name: BARBIEALEX LEE [id number] Admission: 05/10/19 ������������������ Attend Phys: Khadijah Escobedo Discharge: ������������������ Date of : 60 Report #: [id number] THIS REPORT FOR: //name// CC: Khadijah Escobedo Yvan Aguirre DATE OF SERVICE: 05/10/2019 CHIEF COMPLAINT: Chronic kidney pain, back pain, neck pain, status post failed back surgery. HISTORY OF PRESENT ILLNESS: This is a 58-year-old female who returns to the pain clinic today for her ongoing chronic pain issues. She has multiple pain generators including her low back, right knee, which is ojlz-sd-niwi discomfort as well as tooth pain. She has been slowly losing multiple teeth. They are cracking and she is seeking dental care. She tells me quite a lengthy story about unable to pay for this surgery that was requiring 16 tooth extractions and then dentures. She tells me that she is having increased pain in her mouth because of these issues. Alex describes her pain as a "dull jab," intermittent and it is a 5/10 today her pain is worse with eating, activity, walking, standing but her medications are helpful. ALLERGIES: SULFA, TEMAZEPAM, COMPAZINE, NAPROXEN, METHOTREXATE, CIPRO, TOPROL, AMOXICILLIN, METFORMIN, TRAZODONE and LEFLUNOMIDE. CURRENT LIST OF MEDICATIONS: Oxycodone 10/325 four times a day, methadone 10 mg daily, Flexeril up to 3 times a day, Plaquenil, zinc, vitamin B, multivitamin, folic acid, fiber, Amaryl, Prozac, calcium, losartan, amlodipine, Xanax, Carafate, Prilosec, Voltaren gel and Pravachol. PQRS: 1. She has a history of osteoarthritis involving her back and knees. She is not being treated for rheumatoid arthritis in her lower extremities. 2. Height is 5 feet 2 inches, weight is 155 and BMI is 28. 3. VITAL SIGNS: Blood pressure 138/91, pulse is 106, respirations 16 and oxygen sat is 96. Pain score is 5/10. 4. Fall risk. Denies dizziness. Does not need help with walking or standing. Has not fallen in the last 3 months. 5. The patient is not on any blood thinners, does take medicine for hypertension. 6. Opioid therapy is greater than 6 weeks; therefore, an opioid signed contract is on the chart. Her risk assessment tool is low. Functional assessment is 53/70. 7. Recreational drug use, she denies. She is a smoker of 2-3 cigarettes a day and she does not drink alcohol. [address] [address] PAIN MANAGEMENT CONSULTATION Name: ALEX VALENTIN Room #: REG CL Angelica#: [id number] Admission: 05/10/19 ������������������ Attend Phys: Khadijah Escobedo Discharge: ������������������ Date of : 60 Report #: [id number] According to the prescription monitoring system, the patient is filling appropriately for her medications and there is a recent drug screen on the chart within the past year. PHYSICAL EXAMINATION: GENERAL: This is a well-developed, well-nourished white female who appears her stated age, placing her current pain score of 5/10 today. Her speech is fluent. HEENT: Normocephalic and atraumatic. Extraocular eye muscles are intact. Mucous membranes are moist. The patient does complain of fracturing teeth and is missing several teeth today. NECK: Without adenopathy or JVD. MUSCULOSKELETAL: The patient's upper extremity strength 4/5 on the left and the right. The patient has well-healing areas on her forearms that are wrapped today with dressings from recent skin tears. Muscles in the lower extremity strength judged to be 5/5 from major muscle groups. The patient does use her hands from the sitting to standing position. She walks with a slightly antalgic gait, complains of tenderness in her lower back as well as her bilateral knees today. ASSESSMENT: 1. Bilateral neck, shoulder and hand pain. 2. Bilateral knee pain associated with osteoarthritis. 3. Rheumatoid arthritis, skin tears on her arms bilaterally. 4. Migraines. 5. Anxiety. 6. Depression. 7. Complex management under terms of written opioid agreement. 8. Low back pain from previous fusion. We reviewed the fact that opiate medications are being used to provide analgesia adequate to support activities of daily living, not attempting to achieve a specific pain score on the 0-10 Visual Analog Scale. The current opiate medications are providing sufficient analgesia to allow the patient to participate in activities of daily living. The patient is not exhibiting any aberrant behavior suggestive of drug diversion. The patient is not having any adverse reactions to medications. The patient is not suffering from daytime somnolence or mental acuity changes. The patient is managing opiate-induced constipation with appropriate tbgt-oal-fifzygw agents and dietary considerations. The patient was counseled on concern for caution with operating a motor vehicle while using opiate medications. A physical exam was performed and the patient's functional status was evaluated. All patients with back pain were advised against the bed rest greater than 4 days and were advised to return to normal activities. Pain score assessment was noted and the treatment plan was reviewed with the patient. All current medications, both prescribed and OTC were reviewed and reconciled on the [facility] [address] [place] [address] PAIN MANAGEMENT CONSULTATION Name: BARBIEALEX LEE Room #: REG [facility].#: [id number] Admission: 05/10/19 ������������������ Attend Phys: Khadijah Escobedo Discharge: ������������������ Date of : 60 Report #: [id number] electronic medical record. Tobacco screening was accomplished and smoking cessation was advised when indicated. BMI was noted and diet/exercise modification was recommended for all patients following outside normal parameters. I reviewed with the patient today their responsibilities to safeguard prescription medications, reviewed their responsibility to utilize medications only as prescribed by the physician. They are to seek and receive pain medications only from 1 physician group ( [facility]). They are to use 1 pharmacy and keep the clinic informed if they change pharmacies. Their responsibilities include making followup visits in a timely fashion and to avoid abrupt discontinuation of medication usage. Their responsibilities further include bringing their medications (bottles from the pharmacy with residual pills) to the visit for possible confirmation of pill counts and the patient understands it is their responsibility to submit to random drug screens to ensure both that the medications prescribed are present, and that no other controlled substances are present. All prescriptions provided today were generated electronically. PLAN: 1. We discussed treatment options with the patient today. The patient would like a refill of her current medications: Oxycodone 10/325, #120 and methadone 10 mg once a day, were given for prescriptions. This places the patient at 90 morphine milliequivalent per the CDC guidelines; therefore, the patient does come once a month for her medications. 2. We did discuss in great length about the patient's ongoing teeth issues. We encouraged her to contact the [facility] for work for dental work and they do this at a reduced rate since she is having problems paying for her dental work and dentures. The patient did not like that option and will continue to seek care from her current doctor, though she tells me it is a struggle and she needs to wait until she is able to afford this. The patient sits with her hand over her mouth covering her mouth at all times. 3. The patient denies filling of over-medication or constipation from her medications. 4. The patient is seen in collaboration with Dr. Sahil Perkins today and will call for an appointment in 1 month. ��������������������������������������������� <ELECTRONICALLY SIGNED> ���������������������������������������� By: Khadijah Escobedo ��������������������������������������������� 05/10/19 [id number] Khadijah Escobedo /chapo
== END ==
LOC: PAIN 05-09 07:03
DX: M06.9 Rheumatoid arthritis, unspecified (principal); M17.0 Bilateral primary osteoarthritis of knee; G43.909 Migraine, unspecified, not intractable, without status migrainosus; F32.9 Major depressive disorder, single episode, unspecified; F41.9 Anxiety disorder, unspecified; N23 Unspecified renal colic; M25.512 Pain in left shoulder; M25.511 Pain in right shoulder; Z88.2 Allergy status to sulfonamides; Z88.8 Allergy status to other drugs, medicaments and biological substances; Z79.899 Other long term (current) drug therapy

== ENCOUNTER → 2019-06-08 | Outpatient (CLI) | payer OTHER, BC ==
[~2019-06-08] VITALS: Ht 157.5 cm; Wt 71.1 kg
[2019-06-08 11:22] VITALS: BP 146/86
--- NOTE | 2019-06-08 11:25 | NUR ---
Pain Clinic Assessment: 1. History of Osteoarthritis: YES History of Rheumatoid Arthritis: YES Left Upper Extremity Right Lower Extremity Right Upper Extremity 2. Height: 5 ft. 2 in. 157.5 cm. Weight: 156.8 lb. oz. 71.124 kg. Patient's BMI: 28.7 3. Vital Signs: BP: 146/86 Pulse: 110 Resp: 16 Temp: 02 Sat: 97 ECG Mon: 4. Pain Intensity: 4-5 5. Fall Risk: Dizziness: N Needs help standing or walking: N Fallen in the last 3 months: N Fall risk comments: 6. Patient on Blood Thinner: None 7. History of Hypertension: Y 8. Opioid Therapy greater than 6 weeks: Y Opiate Contract Signed: 12/22/16 9. Risk Assessment Tool Provided: 1/RAMÓN 10. Functional Assessment Tool: 11. Recreational Drug Use: Never Drug Type: Tobacco Use: Former Smoker Tobacco Type: Amount or Packs/day: How Many Years: Alcohol Use: No Frequency: Quant:
--- NOTE | 2019-06-11 13:02 | HPC ---
[facility] [place] [address] PAIN MANAGEMENT CONSULTATION Name: BARBIEALEX LEE [id number] Admission: 06/08/19 Attend Phys: Khadijah Escobedo Discharge: Date of : 60 Report #: [id number] THIS REPORT FOR: //name// CC: Khadijah Escobedo Yvan Aguirre DATE OF SERVICE: 06/08/2019 CHIEF COMPLAINT: Back pain, right knee pain and status post failed back surgery. HISTORY OF PRESENT ILLNESS: This is a 58-year-old female who returns to the pain clinic today for refill of her medications. She is quite tearful today. She is having a hard decision trying to figure out if she should have oral surgery because her teeth keep chipping away, which will be a lengthy process with possible hospitalization for recovery. She has had two consultations and spoken with doctors regarding this or should she have her right knee replaced, which is [id number] and her orthopedic surgeon, Dr. Wren is retiring at the end of the year. She does get steroid injections every 3-4 months in her right knee, which is the most painful. She is just trying to pray about what she should do first. She does not have pain associated with her mouth. She just knows that it does not look very good cosmetically. The patient tells me that the medications that we gave her for her right knee and low back pain are beneficial. Her pain score today is 4, worse with activity and standing, especially with her knee pain, medications and using cold and sitting are very helpful. She denies any problems with constipation presently. CURRENT LIST OF ALLERGIES: SULFA, TEMAZEPAM, COMPAZINE, NAPROXEN, METHOTREXATE, CIPRO, TOPROL, AMOXICILLIN, METFORMIN, TRAZODONE AND LEFLUNOMIDE. CURRENT LIST OF MEDICATIONS: Oxycodone 10/325 q.i.d., methadone 10 mg daily, Flexeril 10 mg t.i.d. p.r.n., biotin, zinc, vitamin B12, multivitamin, folic acid, fiber, Amaryl 4 mg, Prozac, Caltrate, losartan, amlodipine, Xanax, Carafate, omeprazole, Plaquenil, Voltaren gel and Pravachol. PQRS: 1. She has a history of osteoarthritis involving her back and knees. She is being treated for rheumatoid arthritis. 2. Height is 5 feet 2 inches, weight is 156, BMI is 28. 3. Vital signs 146/86, pulse is 110, respirations 16, oxygen sat is 97. 4. Pain score is 4-5. 5. Denies dizziness, does not need help walking or standing, has not fallen in the last 3 months. 6. The patient is not on any blood thinners, does take medicine for [address] [address] PAIN MANAGEMENT CONSULTATION Name: ALEX VALENTIN Room #: REG [facility].#: [id number] Admission: 06/08/19 Attend Phys: Khadijah Escobedo Discharge: Date of : 60 Report #: [id number] hypertension. 7. Opioid therapy is greater than 6 weeks; therefore, an opioid signed contract is on the chart. Risk assessment tool is low. Functional assessment is 53/70. 8. Recreational drug use, she denies. She is a former smoker and does not drink alcohol. According to the prescription monitoring system, patient is filling appropriately for her medications. She is due for her methadone refill today. PHYSICAL EXAMINATION: GENERAL: This is a well-developed, well-nourished white female who appears her stated age, placing her current pain score 4-5. Her speech is fluent. HEENT: Normocephalic, atraumatic. Extraocular eye muscles are intact. She is missing multiple teeth. NECK: Without adenopathy or JVD. MUSCULOSKELETAL: The patient complains of right knee pain. It is slightly swollen today. She does have various stages of ecchymosis on her knee and her lower right olivier. The patient walks with an antalgic gait. She does also complain of tenderness across her lumbar spine at the waist line. Lower extremity strength judged to be 5/5 in all major muscle groups. ASSESSMENT: 1. Bilateral neck, shoulder and hand pain. 2. Bilateral knee pain associated with osteoarthritis. 3. Rheumatoid arthritis. 4. Migraines. 5. Anxiety. 6. Depression. 7. Low back pain from previous laminectomy. 8. Complex medical management under terms of written opioid agreement. PLAN: 1. We discussed treatment options with the patient today. The patient is quite tearful at times throughout her visit today, she is unsure what surgery she should have done, both her oral surgery and her right knee replacement will require money for her to meet her detectable. She knows that her surgeon is retiring at the end of the year, so she is leaning towards having her knee replaced that is the most painful of the two, but she knows that she does not look pleasing to people when she smiles due to her missing teeth. I encouraged the patient to think about both of these options and to make a decision fairly soon since she will need to have time for her surgery date to be set up. 2. We will discuss pain medication options when she determines which surgery she is going to have performed, both will require inpatient stays for at least a couple of days, but we will discuss postop pain management. The patient verbalizes understanding. 3. Scripts refilled today for her current medications of oxycodone 10/325, #[address] [address] PAIN MANAGEMENT CONSULTATION Name: ALEX VALENTIN NATHANAEL Room #: REG Irina Dominguez#: [id number] Admission: 06/08/19 Attend Phys: Khadijah Escobedo Discharge: Date of : 60 Report #: [id number] and her methadone 10 mg that she takes once a day, #30. The patient does not need her Flexeril refilled today. 4. The patient will return in 1 month. Hopefully, she will have made a decision of what surgery she is going to have. The patient was seen in collaboration today with Dr. Mike [place]. <ELECTRONICALLY SIGNED> By: Khadijah Escobedo 06/11/19 1302 [id number] Khadijah Escobedo /chapo
== END ==
LOC: PAIN 06:50
DX: M17.0 Bilateral primary osteoarthritis of knee (principal); M06.9 Rheumatoid arthritis, unspecified; F32.9 Major depressive disorder, single episode, unspecified; F41.9 Anxiety disorder, unspecified; G43.909 Migraine, unspecified, not intractable, without status migrainosus; M25.512 Pain in left shoulder; M25.511 Pain in right shoulder; M54.2 Cervicalgia; Z88.8 Allergy status to other drugs, medicaments and biological substances; Z88.2 Allergy status to sulfonamides; Z88.0 Allergy status to penicillin; Z79.891 Long term (current) use of opiate analgesic; Z79.899 Other long term (current) drug therapy

== ENCOUNTER → 2019-07-04 | Outpatient (CLI) | payer OTHER, BC ==
[~2019-07-04] VITALS: Ht 157.5 cm; Wt 69.9 kg
[2019-07-04 14:03] VITALS: BP 148/83
--- NOTE | 2019-07-04 14:13 | NUR ---
Pain Clinic Assessment: 1. History of Osteoarthritis: YES History of Rheumatoid Arthritis: YES Left Upper Extremity Right Lower Extremity Right Upper Extremity 2. Height: 5 ft. 2 in. 157.5 cm. Weight: 154.2 lb. oz. 69.945 kg. Patient's BMI: 28.2 3. Vital Signs: BP: 148/83 Pulse: 119 Resp: 18 Temp: 02 Sat: 97 ECG Mon: 4. Pain Intensity: 3 5. Fall Risk: Dizziness: N Needs help standing or walking: N Fallen in the last 3 months: N Fall risk comments: 6. Patient on Blood Thinner: None 7. History of Hypertension: Y 8. Opioid Therapy greater than 6 weeks: Y Opiate Contract Signed: 12/22/16 9. Risk Assessment Tool Provided: 1/RAMÓN 10. Functional Assessment Tool: 11. Recreational Drug Use: Never Drug Type: Tobacco Use: Former Smoker Tobacco Type: Amount or Packs/day: How Many Years: Alcohol Use: No Frequency: Quant:
--- NOTE | 2019-07-05 08:43 | HPC ---
[facility] [address] [address] PAIN MANAGEMENT CONSULTATION Name: BARBIEALEX LEE Room #: REG [facility] Zulema.#: [id number] Admission: 07/04/19 Attend Phys: Khadijah Escobedo Discharge: Date of : 60 Report #: [id number] THIS REPORT FOR: //name// CC: Khadijah Escobedo Yvan Aguirre DATE OF SERVICE: 07/04/2019 CHIEF COMPLAINT: Chronic low back pain, neck pain, status post failed back surgery. HISTORY OF PRESENT ILLNESS: This is a 58-year-old female who returns to the pain clinic today for refill of her medications that she takes for her ongoing low back pain. She tells me that she does have right knee pain today as well as her ongoing tooth pain. She needs to have extensive dental work and is trying to save enough money to have that done. She does report a pain score of 3/10 today, which is low for her. Her pain is worse with activity and walking, better with medications and sitting. She reports that she recently had a colonoscopy and an EGD where they did not find any problems in her colon, but she did have her esophagus dilated and the patient also saw a urologist regarding her multiple bladder infections that she has been experiencing this year. ALLERGIES: SULFA, TEMAZEPAM, COMPAZINE, NAPROXEN, METHOTREXATE, CIPRO, METOPROLOL, AMOXICILLIN, METFORMIN, TRAZODONE, LEFLUNOMIDE. CURRENT LIST OF MEDICATIONS: Oxycodone 10/325 p.r.n., methadone 10 mg daily, Flexeril 10 mg 3 times a day p.r.n., biotin, zinc, vitamin B12, multivitamin, folic acid, fiber, Amaryl 4 mg, Prozac 20 mg, Caltrate, Losartan, amlodipine, alprazolam, Carafate, Prilosec, Plaquenil, Pravachol and Voltaren gel. PQRS: 1. She has osteoarthritis involving her back and knees. She is being treated for rheumatoid arthritis as well. 2. Height is 5 feet 2 inches, weight is 154, BMI is 28. 3. Vital signs 148/83, pulse is 119, respirations 18, oxygen sat is 97. 4. Pain score is 3/10. 5. Fall risk. Denies dizziness, does not need help walking or standing, has not fallen in the last 3 months. 6. The patient is not on any blood thinners, does take medicine for hypertension. 7. Opioid therapy is greater than 6 weeks; therefore, an opioid signed contract is on the chart. Her risk assessment tool is low. Functional assessment is 53/70. 8. Recreational drug use, she denies, not a smoker and does not drink alcohol. [address] [address] PAIN MANAGEMENT CONSULTATION Name: ALEX VALENTIN [facility] [id number] Admission: 07/04/19 Attend Phys: Khadijah Escobedo Discharge: Date of : 60 Report #: [id number] We did check the prescription monitoring system. The patient is filling appropriately for her medication and is due in a timely fashion. PHYSICAL EXAMINATION: GENERAL: This is a well-developed, well-nourished white female who appears her stated age, placing her current pain score at 3/10 today. Her speech is fluent. She is alert and orientated. HEENT: Normocephalic, atraumatic. Extraocular eye muscles are intact. The patient continues to have multiple missing teeth and fracturing teeth. NECK: Without adenopathy or JVD. MUSCULOSKELETAL: Upper extremity strength judged to be 5/5 in all major muscle groups. She has her forearms wrapped due to multiple skin tears. Her lower extremity strength judged to be 5/5 in all major muscle groups. The patient walks with a slightly antalgic gait. Complains of tenderness in her lower back and bilateral knees. ASSESSMENT: 1. Bilateral knee pain associated with osteoarthritis. 2. Rheumatoid arthritis. 3. Migraines. 4. Anxiety. 5. Depression. 6. Low back pain, status post lumbar fusions. 7. Bilateral neck, shoulder and hand pain. 8. Complex medication management under terms of written opioid agreement. We reviewed the fact that opiate medications are being used to provide analgesia adequate to support activities of daily living, not attempting to achieve a specific pain score on the 0-10 Visual Analog Scale. The current opiate medications are providing sufficient analgesia to allow the patient to participate in activities of daily living. The patient is not exhibiting any aberrant behavior suggestive of drug diversion. The patient is not having any adverse reactions to medications. The patient is not suffering from daytime somnolence or mental acuity changes. The patient is managing opiate-induced constipation with appropriate [id number] agents and dietary considerations. The patient was counseled on concern for caution with operating a motor vehicle while using opiate medications. A physical exam was performed and the patient's functional status was evaluated. All patients with back pain were advised against the bed rest greater than 4 days and were advised to return to normal activities. Pain score assessment was noted and the treatment plan was reviewed with the patient. All current medications, both prescribed and OTC were reviewed and reconciled on the electronic medical record. Tobacco screening was accomplished and smoking cessation was advised when indicated. BMI was noted and diet/exercise [address] [address] PAIN MANAGEMENT CONSULTATION Name: ALEX VALENTIN Room #: REG [facility]#: [id number] Admission: 07/04/19 Attend Phys: Khadijah Escobedo Discharge: Date of : 60 Report #: [id number] modification was recommended for all patients following outside normal parameters. I reviewed with the patient today their responsibilities to safeguard prescription medications, reviewed their responsibility to utilize medications only as prescribed by the physician. They are to seek and receive pain medications only from 1 physician group ( [facility]). They are to use 1 pharmacy and keep the clinic informed if they change pharmacies. Their responsibilities include making followup visits in a timely fashion and to avoid abrupt discontinuation of medication usage. Their responsibilities further include bringing their medications (bottles from the pharmacy with residual pills) to the visit for possible confirmation of pill counts and the patient understands it is their responsibility to submit to random drug screens to ensure both that the medications prescribed are present, and that no other controlled substances are present. All prescriptions provided today were generated electronically. PLAN: 1. We discussed treatment options with the patient today. The patient did find a [employer] magazine in her room. I explained to her that [facility] has many options for classes for her. She may find several beneficial that are related to rheumatoid arthritis and chronic pain in various support groups and they are free to the patient. They are offered several places around town. I encouraged her to look through the catalog and pick classes to attend. She seemed upbeat and excited about the opportunity to attend some of these. 2. The patient again stressed that she is worried about her ongoing mouth dilemma and trying to afford the care that is needed. She is working on saving the money, but has not been able to schedule a time to have her teeth fixed yet. 3. Scripts given today for her methadone 10 mg 1 at noon, #30 and oxycodone 10/325, #[address] Mike [place] who collaborated care today. Script also given for Flexeril 10 mg, #90, with 2 additional refills. 4. The patient will follow up in 1-month time period. She is seen monthly, though she does fall at 90 morphine mEq per the CDC guidelines. <ELECTRONICALLY SIGNED> By: Khadijah Escobedo 07/05/19 0843 [id number] Khadijah Escobedo /nt
== END ==
LOC: PAIN 11:15
DX: M54.5 Low back pain (principal); M54.2 Cervicalgia; M17.0 Bilateral primary osteoarthritis of knee; M06.9 Rheumatoid arthritis, unspecified; G43.909 Migraine, unspecified, not intractable, without status migrainosus; F41.9 Anxiety disorder, unspecified; F32.9 Major depressive disorder, single episode, unspecified; Z88.2 Allergy status to sulfonamides; Z88.8 Allergy status to other drugs, medicaments and biological substances

== ENCOUNTER 2019-07-27 15:43 | Emergency (ER) | payer OTHER, BC ==
[~2019-07-27] VITALS: Ht 157.5 cm; Wt 70.3 kg
== END 2019-07-27 16:43 | disposition home or self-care (01) ==
LOC: ER 15:43
DX: G89.29 Other chronic pain (principal); M54.6 Pain in thoracic spine; I10 Essential (primary) hypertension; M81.0 Age-related osteoporosis without current pathological fracture; M43.26 Fusion of spine, lumbar region; G43.909 Migraine, unspecified, not intractable, without status migrainosus; F32.9 Major depressive disorder, single episode, unspecified; G47.30 Sleep apnea, unspecified; F41.9 Anxiety disorder, unspecified; M06.9 Rheumatoid arthritis, unspecified; K21.9 Gastro-esophageal reflux disease without esophagitis; Z86.2 Personal history of diseases of the blood and blood-forming organs and certain disorders involving the immune mechanism; Z90.710 Acquired absence of both cervix and uterus; Z98.890 Other specified postprocedural states; Z88.6 Allergy status to analgesic agent; Z88.2 Allergy status to sulfonamides; Z88.1 Allergy status to other antibiotic agents; Z88.8 Allergy status to other drugs, medicaments and biological substances

== ENCOUNTER → 2019-07-30 | Outpatient (CLI) | payer OTHER, BC | LOC: RAD 09:04 | DX: M48.56XA Collapsed vertebra, not elsewhere classified, lumbar region, initial encounter for fracture (principal); M48.54XA Collapsed vertebra, not elsewhere classified, thoracic region, initial encounter for fracture; J98.4 Other disorders of lung; K44.9 Diaphragmatic hernia without obstruction or gangrene ==

== ENCOUNTER → 2019-08-06 | Outpatient (CLI) | payer OTHER, BC ==
[~2019-08-06] VITALS: Ht 157.5 cm; Wt 70.8 kg
[2019-08-06 08:38] VITALS: BP 150/84
[2019-08-06 08:52] LABS: HEMOGLOBIN 12.8 gm/dL (12.0-15.0); MCH 31.5 pg (26.0-34.0); MCHC 32.9 g/dL (28.0-37.0); MCV 95.6 fL (80.0-100.0); RBC 4.08 mil/uL (4.20-5.00); RDW 13.4 % (10.5-14.5); WBC 10.3 thou/uL (4.0-11.0)
[2019-08-06 09:01] LABS: APTT 25.8 Seconds (24.5-32.8); PROTIME 9.9 Seconds (9.3-11.4)
== END | disposition home or self-care (01) ==
LOC: CATH 08:11
PROVIDERS: Nuclear Medicine Nuclear Cardiology
DX: M80.08XA Age-related osteoporosis with current pathological fracture, vertebra(e), initial encounter for fracture (principal); M54.9 Dorsalgia, unspecified; I10 Essential (primary) hypertension; E78.5 Hyperlipidemia, unspecified; E11.9 Type 2 diabetes mellitus without complications; K21.9 Gastro-esophageal reflux disease without esophagitis; I73.9 Peripheral vascular disease, unspecified; H40.9 Unspecified glaucoma; G47.33 Obstructive sleep apnea (adult) (pediatric); M06.9 Rheumatoid arthritis, unspecified; G47.30 Sleep apnea, unspecified; F32.9 Major depressive disorder, single episode, unspecified; F41.9 Anxiety disorder, unspecified; Z87.891 Personal history of nicotine dependence; Z90.710 Acquired absence of both cervix and uterus; Z86.73 Personal history of transient ischemic attack (TIA), and cerebral infarction without residual deficits; Z98.890 Other specified postprocedural states; Z79.899 Other long term (current) drug therapy; Z88.2 Allergy status to sulfonamides; Z88.8 Allergy status to other drugs, medicaments and biological substances

== ENCOUNTER → 2019-08-08 | Outpatient (CLI) | payer OTHER, BC | LOC: HYPER 07:26 | DX: E11.622 Type 2 diabetes mellitus with other skin ulcer (principal); L97.812 Non-pressure chronic ulcer of other part of right lower leg with fat layer exposed; K21.9 Gastro-esophageal reflux disease without esophagitis; E11.39 Type 2 diabetes mellitus with other diabetic ophthalmic complication; H40.9 Unspecified glaucoma; E78.5 Hyperlipidemia, unspecified; G47.33 Obstructive sleep apnea (adult) (pediatric); G25.81 Restless legs syndrome; I10 Essential (primary) hypertension; M81.0 Age-related osteoporosis without current pathological fracture; M06.9 Rheumatoid arthritis, unspecified; F32.9 Major depressive disorder, single episode, unspecified; F41.9 Anxiety disorder, unspecified; Z79.01 Long term (current) use of anticoagulants; Z87.891 Personal history of nicotine dependence; Z90.710 Acquired absence of both cervix and uterus ==

== ENCOUNTER → 2019-08-08 | Outpatient (CLI) | payer OTHER, BC ==
[~2019-08-08] VITALS: Ht 157.5 cm; Wt 70.9 kg
[2019-08-08 12:32] VITALS: BP 144/83
--- NOTE | 2019-09-07 08:25 | HPC ---
[facility] [address] [address] PAIN MANAGEMENT CONSULTATION Name: BARBIEALEX LEE [id number] Admission: 08/08/19 Attend Phys: Rehana [place] MD Discharge: Date of : 60 Report #: [id number] THIS REPORT FOR: //name// CC: Rehana Aguirre DATE OF SERVICE: 08/08/2019 CHIEF COMPLAINT: "I have had another compression fracture." HISTORY: The patient is a 58-year-old female who has been followed in the pain clinic for quite some time. As you may recall, she has a history of osteoporosis. She has been followed in the pain clinic because of chronic pain for about 10 years. She recently was taking out the trash. She states that she carried out a number of bags with her were somewhat heavy. She then noticed an increased amount of discomfort in the mid portion of her back. She had pain significant enough that she went to hospital. In the Emergency Room, it was found that she did have a fractured vertebrae. She has undergone kyphoplasty at approximately T9 per her report. She has returned today for renewal of her medications. ALLERGIES: SULFA, TEMAZEPAM, COMPAZINE, NAPROSYN, METHOTREXATE, CIPROFLOXACIN, METOPROLOL, AMOXICILLIN, METFORMIN, TRAZODONE, AND LEFLUNOMIDE. CURRENT MEDICATIONS: Oxycodone 10 mg 1 p.o. t.i.d., methadone 10 mg daily, Flexeril 10 mg t.i.d., biotin, zinc, vitamin B12, multivitamins, folic acid, fiber, Amaryl 4 mg, Prozac 20 mg, Caltrate, losartan, amlodipine, alprazolam, Carafate, Prilosec, Plaquenil, Pravachol and Voltaren gel. PAIN CLINIC ASSESSMENT AND PQRS: 1. The patient does have osteoarthritic changes involving her back and knees. She also has history of compression fractures. She is being treated for rheumatoid arthritis as well. 2. Height 5 feet 2 inches, weight 154. BMI is 28. 3. Vital Signs: Blood pressure 150/80, pulse 115, respiratory rate 18, oxygen saturation 97%. 4. Pain score 5/10. 5. Fall history: The patient has not fallen in the last 3 months. 6. Blood thinner. The patient is not on a blood thinning medication. 7. Opioids greater than 6 weeks. The patient received medication from one source, the pain clinic. 8. Risk assessment tool, low for opioid use. 9. Functional assessment tool 53/70. 10. Recreational drug use. The patient denied. 11. Alcohol. The patient denies use of alcoholic beverages. [address] [address] PAIN MANAGEMENT CONSULTATION Name: ALEX VALENTIN Room #: REG CLIrina Dominguez#: [id number] Admission: 08/08/19 Attend Phys: Rehana [place] MD Discharge: Date of : 60 Report #: [id number] PHYSICAL EXAMINATION: GENERAL: The patient is a well-developed, well-nourished white female. Appears her stated age. She is alert and oriented x 3. Her affect is appropriate. Speech is fluent. HEENT: Normocephalic. The patient has a number of teeth, which are continuing to fracture per her report. NECK: Without adenopathy. The patient has somewhat of a kyphotic posture in the upper extremity. EXTREMITIES: Upper extremity muscle strength judged to be 5-/5 for the major muscle groups in the upper extremity. The patient has numerous areas of skin trauma from skin tears. Lower extremity muscle strength judged to be 5-/5 for the major muscle groups in the lower extremity. The patient has an antalgic gait. She has complaints of pain and discomfort in lower portion of her back, the mid portion of her back in the kyphotic area as well as knees. IMPRESSION: 1. Bilateral knee pain associated with osteoarthritis. 2. Recent T9 compression fracture, status post kyphoplasty. 3. Rheumatoid arthritis. 4. Migraines. 5. Anxiety. 6. Depression. 7. Low back pain with status post lumbar fusion. 8. Bilateral neck, shoulder and hand pain. 9. Complex medical management treated with opioid therapy. RECOMMENDATIONS: We discussed treatment options with the patient. Risks and benefits of opioids were again discussed. The patient has noticed an increase in her pain. She has some osteoporosis. We have discussed the need for her to be conscious with her lifting limits. We would recommend that the patient be hesitant lifting items, which judged to be somewhat heavy. Given the number of compression fractures she has had, we have discussed that oftentimes placement of "cement" in the previous fractures stiffens. That increases the chance that a vertebrae above or below that might suffer a similar state. We will have the patient continue with her medications. A script for her medications of Percocet 10/325 mg, Flexeril 10 mg 1 p.o. t.i.d., methadone 10 mg have all been rewritten. The patient will call us if she has any concerns. We would like to thank you for letting us participate in her care. <ELECTRONICALLY SIGNED> By: Rehana [place] MD 09/07/19 0825 [id number] [id number] Rehana [place] MD /chapo
== END ==
LOC: PAIN 07:04
DX: M17.0 Bilateral primary osteoarthritis of knee (principal); M06.9 Rheumatoid arthritis, unspecified; G43.909 Migraine, unspecified, not intractable, without status migrainosus; F41.9 Anxiety disorder, unspecified; F32.9 Major depressive disorder, single episode, unspecified; M54.5 Low back pain; Z79.891 Long term (current) use of opiate analgesic; Z88.2 Allergy status to sulfonamides; Z88.8 Allergy status to other drugs, medicaments and biological substances; Z79.899 Other long term (current) drug therapy

== ENCOUNTER → 2019-08-30 | Outpatient (CLI) | payer OTHER, BC ==
[~2019-08-30] VITALS: Ht 157.5 cm; Wt 69.9 kg
[2019-08-30 12:56] VITALS: BP 143/73
== END | disposition home or self-care (01) ==
LOC: CATH 10:53 → SPEC 12:23 → CATH 14:15
DX: M54.9 Dorsalgia, unspecified (principal); M80.08XA Age-related osteoporosis with current pathological fracture, vertebra(e), initial encounter for fracture; I10 Essential (primary) hypertension; E78.5 Hyperlipidemia, unspecified; E11.9 Type 2 diabetes mellitus without complications; H40.9 Unspecified glaucoma; F41.9 Anxiety disorder, unspecified; F32.9 Major depressive disorder, single episode, unspecified; M06.9 Rheumatoid arthritis, unspecified; G47.30 Sleep apnea, unspecified; Z98.890 Other specified postprocedural states; Z90.710 Acquired absence of both cervix and uterus; Z86.73 Personal history of transient ischemic attack (TIA), and cerebral infarction without residual deficits; Z86.2 Personal history of diseases of the blood and blood-forming organs and certain disorders involving the immune mechanism; Z79.899 Other long term (current) drug therapy

== ENCOUNTER → 2019-09-07 | Outpatient (CLI) | payer OTHER, BC ==
[~2019-09-07] VITALS: Ht 157.5 cm; Wt 69.9 kg
[2019-09-07 08:48] VITALS: BP 162/91
--- NOTE | 2019-09-07 08:53 | NUR ---
Pain Clinic Assessment: 1. History of Osteoarthritis: YES History of Rheumatoid Arthritis: YES Left Upper Extremity Right Lower Extremity Right Upper Extremity 2. Height: 5 ft. 2 in. 157.5 cm. Weight: 154.0 lb. oz. 69.854 kg. Patient's BMI: 28.2 3. Vital Signs: BP: 162/91 Pulse: 116 Resp: 18 Temp: 02 Sat: 96 ECG Mon: 4. Pain Intensity: 7 5. Fall Risk: Dizziness: N Needs help standing or walking: N Fallen in the last 3 months: N Fall risk comments: 6. Patient on Blood Thinner: None 7. History of Hypertension: Y 8. Opioid Therapy greater than 6 weeks: Y Opiate Contract Signed: 12/22/16 9. Risk Assessment Tool Provided: 1/RAMÓN 10. Functional Assessment Tool: 11. Recreational Drug Use: Never Drug Type: Tobacco Use: Never Smoker Tobacco Type: Amount or Packs/day: How Many Years: Alcohol Use: No Frequency: Quant:
--- NOTE | 2019-09-25 09:25 | HPC ---
[facility] [place] [address] PAIN MANAGEMENT CONSULTATION Name: BARBIEALEX LEE Room #: REG [facility].#: [id number] Admission: 09/07/19 Attend Phys: Rehana Perkins MD Discharge: Date of : 60 Report #: [id number] THIS REPORT FOR: //name// CC: Rehana Aguirre DATE OF SERVICE: 09/07/2019 CHIEF COMPLAINT: "I had another compression fracture and had it injected." HISTORY: The patient is a 58-year-old female who has been followed in the pain clinic because of chronic pain. As you recall, she has a history of osteoporosis. She has undergone a number of compression fractures. States that recently she had another compression fracture and it was treated. Continues to have pain and discomfort along the right lateral side. She states that she has had about 8-9 compression fractures overall. Found the last compression treatment more problematic. States that she was more aware of what was going on ____ she had been in the past. She describes the pain in the right chest wall area sometimes is feeling similar to that of ice. She has returned to the pain clinic for renewal of her medications and treatment. ALLERGIES: SULFA, TEMAZEPAM, COMPAZINE, NAPROSYN, METHOTREXATE, CIPROFLOXACIN, METOPROLOL, AMOXICILLIN, METFORMIN, TRAZODONE, LEFLUNOMIDE. CURRENT MEDICATIONS: Oxycodone 10 mg 1 p.o. t.i.d., methadone 10 mg, Flexeril 10 mg t.i.d., Biotin, zinc, vitamin B12, multivitamins, folic acid, fiber, Amaryl 4 mg, Prozac 20 mg, Caltrate, losartan, amlodipine, alprazolam, Carafate, Prilosec, Plaquenil, Pravachol, and Voltaren gel. PAIN CLINIC ASSESSMENT AND PQRS: 1. The patient does have osteoarthritic changes involving her back and knees. She has had a number of compression fractures. She states about 9. She is being treated for rheumatoid arthritis in her left upper extremity, right lower extremity, and right upper extremity. 2. Height 5 feet 2 inches, weight 154 pounds, BMI is 28.2. 3. Vital signs: Blood pressure 162/91, pulse 116, respiratory rate 18, room air saturation 96%. 4. Pain intensity 05/09. 5. Fall history: The patient states that she has not fallen since she saw us last. 6. Blood thinner. The patient is not on a blood thinning medication. 7. Hypertension. The patient is being treated for hypertension. 8. Opioids greater than 6 weeks. The patient received medication from one source the pain clinic. 9. Risk assessment tool, [id number]. 10. Functional assessment tool 35/70. [address] [address] PAIN MANAGEMENT CONSULTATION Name: ALEX VALENTIN Room #: REG [facility] Angelica#: [id number] Admission: 09/07/19 Attend Phys: Rehana Perkins MD Discharge: Date of : 60 Report #: [id number] 11. Recreational drug use: The patient denies. 12. Tobacco: The patient has never smoked. 13. Alcohol. The patient denies frequent use of alcoholic beverages. PHYSICAL EXAMINATION: GENERAL: The patient is a well-developed, well-nourished white female. Appears her stated age. She is alert and oriented. She is somewhat discombobulated because of the frequency of compression fractures and her current state of health. Speech is fluent. HEENT: Normocephalic, atraumatic. Extraocular eye muscles intact. The patient continues to complain of losing a number of teeth, which are fracturing. NECK: Without adenopathy. The patient has a kyphotic posture in the upper thoracic area. EXTREMITIES: Upper extremity muscle strength judged to be 5-/5 for the major muscle groups in the upper extremity. The patient has numerous areas of skin trauma and tears on her upper arm. Lower extremity muscle strength judged to be 5-/5 for the lower extremity. The patient walks with an antalgic gait. Has discomfort in lower portion of her back. Has pain in the knees bilaterally. IMPRESSION: 1. History of recent kyphoplasty, has had numerous approximately 8-9 in the past. 2. Rheumatoid arthritis. 3. Migraines. 4. Anxiety. 5. Depression. 6. Osteoporosis. 7. Low back pain, status post lumbar fusion, bilateral neck and shoulder pain. 8. Complex medical management using opioids to help control the pain. RECOMMENDATIONS: We discussed treatment options with the patient. We again discussed the problems with osteoporosis. I recommended the patient try a back brace to help immobilize her back. This could be helpful in decreasing pain as well as lessening the chance of new compression fracture. We explained to the patient that she should be very mindful of lifting any items. She states that she has to do some of the lifting movement. Otherwise, there is no one to help her. We again reminded her the possible complications of compression fractures. A script for her medications have been renewed. She will continue with methadone 10 mg 1 p.o. daily as well as Percocet 120 tablets 10 mg 1 p.o. q.i.d. The patient will be seen by the brace specialist. We recommend that the patient try a back brace to reduce pain by restricting mobility of the trunk. [facility] [address] [place] [address] PAIN MANAGEMENT CONSULTATION Name: ALEX VALENTIN Room #: REG [facility] Angelica#: [id number] Admission: 09/07/19 Attend Phys: Rehana Perkins MD Discharge: Date of : 60 Report #: [id number] We would like to thank you for letting us participate in her care. We hope she continues to improve. <ELECTRONICALLY SIGNED> By: Rehana Perkins MD 09/25/19 0925 [id number] Rehana Perkins MD /nt
== END ==
LOC: PAIN 06:50
DX: M54.5 Low back pain (principal); M81.0 Age-related osteoporosis without current pathological fracture; M06.9 Rheumatoid arthritis, unspecified; G43.909 Migraine, unspecified, not intractable, without status migrainosus; F41.9 Anxiety disorder, unspecified; F32.9 Major depressive disorder, single episode, unspecified; Z79.899 Other long term (current) drug therapy; Z88.8 Allergy status to other drugs, medicaments and biological substances

== ENCOUNTER → 2019-09-13 | Outpatient (CLI) | payer OTHER, BC ==
[~2019-09-13] VITALS: Ht 157.5 cm; Wt 70.0 kg
[2019-09-13 11:13] VITALS: BP 156/72
[2019-09-13 11:18] LABS: PROTIME 10.3 Seconds (9.3-11.4)
[2019-09-13 12:40] VITALS: BP 140/75
--- NOTE | 2019-09-13 12:48 | NUR ---
[facility], STATES PAIN IS BETTER,
== END | disposition home or self-care (01) ==
LOC: MRI 07:33
PROVIDERS: Nuclear Medicine Nuclear Cardiology
DX: M80.08XA Age-related osteoporosis with current pathological fracture, vertebra(e), initial encounter for fracture (principal); M54.5 Low back pain; I10 Essential (primary) hypertension; E11.9 Type 2 diabetes mellitus without complications; E78.5 Hyperlipidemia, unspecified; K21.9 Gastro-esophageal reflux disease without esophagitis; H40.9 Unspecified glaucoma; F41.9 Anxiety disorder, unspecified; F32.9 Major depressive disorder, single episode, unspecified; G47.30 Sleep apnea, unspecified; M06.9 Rheumatoid arthritis, unspecified; Z90.710 Acquired absence of both cervix and uterus; Z98.890 Other specified postprocedural states; Z85.820 Personal history of malignant melanoma of skin; Z79.899 Other long term (current) drug therapy; Z86.73 Personal history of transient ischemic attack (TIA), and cerebral infarction without residual deficits; Z88.2 Allergy status to sulfonamides; Z88.8 Allergy status to other drugs, medicaments and biological substances

== ENCOUNTER → 2019-10-05 | Outpatient (CLI) | payer OTHER, BC ==
[~2019-10-05] VITALS: Ht 160 cm; Wt 66.7 kg
[2019-10-05 10:56] VITALS: BP 142/77
--- NOTE | 2019-10-05 11:02 | NUR ---
Pain Clinic Assessment: 1. History of Osteoarthritis: back History of Rheumatoid Arthritis: YES Left Upper Extremity Right Lower Extremity Right Upper Extremity 2. Height: 5 ft. 3 in. 160.0 cm. Weight: 147.0 lb. oz. 66.679 kg. Patient's BMI: 26.0 3. Vital Signs: BP: 142/77 Pulse: 112 Resp: 18 Temp: 02 Sat: 95 ECG Mon: 4. Pain Intensity: 8 5. Fall Risk: Dizziness: N Needs help standing or walking: N Fallen in the last 3 months: N Fall risk comments: 6. Patient on Blood Thinner: None 7. History of Hypertension: Y 8. Opioid Therapy greater than 6 weeks: Y Opiate Contract Signed: 12/22/16 9. Risk Assessment Tool Provided: Jameel/RAMÓN 10. Functional Assessment Tool: 11. Recreational Drug Use: Never Drug Type: Tobacco Use: Never Smoker Tobacco Type: Amount or Packs/day: How Many Years: Alcohol Use: No Frequency: Quant:
--- NOTE | 2019-10-30 14:24 | HPC ---
[facility] [place] [address] PAIN MANAGEMENT CONSULTATION Name: BARBIEALEX LEE [facility] [id number] Admission: 10/05/19 Attend Phys: Rehana Perkins MD Discharge: Date of : 60 Report #: [id number] THIS REPORT FOR: //name// CC: Rehana Aguirre DATE OF SERVICE: 10/05/2019 CHIEF COMPLAINT: Here for evaluation. The patient states that she had had 3 kyphoplasties in July, I think she may have another fracture. HISTORY: The patient is a 59-year-old female who has had numerous compression fractures. She has significant osteoporosis. She has had recent compression fractures and has been treated for them. She returns today indicating that her pain continues to be problematic. Finds that her medication is helpful. Pain in the mid back area above her bra line on the right side is problematic. Rates it as an 8/10. ALLERGIES: SULFA, TEMAZEPAM, COMPAZINE, NAPROSYN, METHOTREXATE, CIPROFLOXACIN, METOPROLOL, AMOXICILLIN, METFORMIN, TRAZODONE, LEFLUNOMIDE. CURRENT MEDICATIONS: Oxycodone 10 mg 1 p.o. t.i.d., methadone 10 mg, Flexeril 10 mg t.i.d., biotin, zinc, vitamin B12, multivitamins, folic acid, fiber, Amaryl 4 mg, Prozac 20 mg, Caltrate, losartan, amlodipine, alprazolam, Carafate, Prilosec, Plaquenil, Pravachol, Voltaren gel. PAIN CLINIC ASSESSMENT AND PQRS: 1. The patient does have osteoarthritic changes involving her back and her knees. She has had a number of compression fractures, states that she has had over 9. 2. Has some discomfort in her lower extremities as well as the upper extremity. 3. Height 5 feet 2 inches, weight 147 pounds, BMI is 26.0. 4. Vital signs: Blood pressure 142/77, pulse is 112, respiratory rate 18, room air saturation 95%. 5. Pain intensity 06/09. 6. Fall history: The patient has not fallen since we saw her last. 7. Blood thinner. The patient is not on a blood thinning medication. 8. Opioids. The patient receives medications from the pain clinic. 9. Risk assessment tool, low for opioid use. 10. Functional assessment tool 53/70. 11. Recreational drug use: The patient denies. 12. Tobacco: The patient has never smoked. 13. Alcohol. The patient denies use of alcoholic beverages. PHYSICAL EXAMINATION: GENERAL: The patient is a well-developed, well-nourished white female. Appears [facility] [address] [place] [address] PAIN MANAGEMENT CONSULTATION Name: ALEX VALENTIN Room #: REG CLIrina Dominguez#: [id number] Admission: 10/05/19 Attend Phys: Rehana Perkins MD Discharge: Date of : 60 Report #: [id number] her stated age. She is alert and oriented. She is still somewhat depressed because of frequency of compression fractures. HEENT: Normocephalic, atraumatic. Extraocular eye muscles intact. Sclerae nonicteric. The patient still complains of fracturing of her teeth. NECK: Without adenopathy. The patient has significant amount of kyphosis in the upper thoracic area. EXTREMITIES: Upper extremity muscle strength judged to be 5-/5 for the major muscle groups in the upper extremity. The patient has numerous areas of skin breakdown in her upper extremity, this is along her forearms. The patient walks with antalgic gait. Complains of pain and discomfort in the mid back area. Complains of pain in her knees. IMPRESSION: 1. History of kyphoplasty secondary to compression fractures. 2. Rheumatoid arthritis. 3. Migraine headaches. 4. Anxiety. 5. Depression. 6. Thickened osteoporosis. 7. Low back pain, status post lumbar fusion, bilateral neck and shoulder pain. 8. Complex medical management using opioids to help control the pain. RECOMMENDATIONS: We discussed treatment options with the patient. At this juncture, we will continue with her medications. A script for her medications have been rewritten. We would recommend that the patient consider a brace to help with the kyphosis. She does sit in a forward leaning position. I explained to her that the anatomy of the forward sitting like that does place her at an increased rate of compression fractures. A script for her medications of Percocet 120 tablets of 10 mg to be taken one p.o. q.i.d. have been provided. The patient will also continue with methadone 10 mg 1 tablet daily. She will follow up in the future as needed. We would like to thank you for letting us participate in her care. We hope she continues to improve. <ELECTRONICALLY SIGNED> By: Rehana Perkins MD 10/30/19 1424 [id number] [id number] Rehana Perkins MD /[facility]
== END ==
LOC: PAIN 06:51
DX: M80.80XG Other osteoporosis with current pathological fracture, unspecified site, subsequent encounter for fracture with delayed healing (principal); M06.9 Rheumatoid arthritis, unspecified; G43.909 Migraine, unspecified, not intractable, without status migrainosus; F41.9 Anxiety disorder, unspecified; F32.9 Major depressive disorder, single episode, unspecified; Z79.891 Long term (current) use of opiate analgesic; Z79.899 Other long term (current) drug therapy

== ENCOUNTER → 2019-10-15 | Outpatient (CLI) | payer OTHER, BC | LOC: MRI 10-03 15:58 | DX: M51.24 Other intervertebral disc displacement, thoracic region (principal); M40.294 Other kyphosis, thoracic region; M43.8X4 Other specified deforming dorsopathies, thoracic region; Z88.8 Allergy status to other drugs, medicaments and biological substances; Z88.2 Allergy status to sulfonamides; Z98.890 Other specified postprocedural states ==

== ENCOUNTER → 2019-11-02 | Outpatient (CLI) | payer OTHER, BC ==
[~2019-11-02] VITALS: Ht 157.5 cm; Wt 65.3 kg
[2019-11-02 08:27] VITALS: BP 132/85
[2019-11-02 08:47] LABS: HEMATOCRIT 35.7 % (37.0-47.0); HEMOGLOBIN 11.7 gm/dL (12.0-15.0); MCH 30.5 pg (26.0-34.0); MCHC 32.8 g/dL (28.0-37.0); MCV 92.9 fL (80.0-100.0); RBC 3.85 mil/uL (4.20-5.00); RDW 14.5 % (10.5-14.5); WBC 10.7 thou/uL (4.0-11.0)
[2019-11-02 08:51] LABS: CALCIUM 10.2 mg/dL (8.5-10.1); CREATININE 0.8 mg/dL (0.6-1.0); POTASSIUM 4.1 mmol/L (3.5-5.1)
[2019-11-02 08:54] LABS: PROTIME 10.4 Seconds (9.3-11.4)
[2019-11-02 11:16] VITALS: BP 112/55
[2019-11-02 11:30] VITALS: BP 111/56
[2019-11-02 11:45] VITALS: BP 112/55
[2019-11-02 12:00] VITALS: BP 110/54
== END | disposition home or self-care (01) ==
LOC: CATH 07:54
PROVIDERS: Nuclear Medicine Nuclear Cardiology
DX: M54.9 Dorsalgia, unspecified (principal); M80.08XA Age-related osteoporosis with current pathological fracture, vertebra(e), initial encounter for fracture; I10 Essential (primary) hypertension; E11.9 Type 2 diabetes mellitus without complications; M06.9 Rheumatoid arthritis, unspecified; G43.909 Migraine, unspecified, not intractable, without status migrainosus; F32.9 Major depressive disorder, single episode, unspecified; G47.30 Sleep apnea, unspecified; F41.9 Anxiety disorder, unspecified; H40.9 Unspecified glaucoma; M19.90 Unspecified osteoarthritis, unspecified site; Z79.899 Other long term (current) drug therapy; Z98.890 Other specified postprocedural states; Z86.73 Personal history of transient ischemic attack (TIA), and cerebral infarction without residual deficits; Z90.710 Acquired absence of both cervix and uterus; Z86.2 Personal history of diseases of the blood and blood-forming organs and certain disorders involving the immune mechanism; Z82.49 Family history of ischemic heart disease and other diseases of the circulatory system; Z87.19 Personal history of other diseases of the digestive system; Z88.2 Allergy status to sulfonamides; Z88.8 Allergy status to other drugs, medicaments and biological substances

== ENCOUNTER → 2019-11-07 | Outpatient (CLI) | payer OTHER, BC ==
[~2019-11-07] VITALS: Ht 160 cm; Wt 63.5 kg
[2019-11-07 09:15] VITALS: BP 120/69
--- NOTE | 2019-11-07 09:32 | NUR ---
Pain Clinic Assessment: 1. History of Osteoarthritis: back History of Rheumatoid Arthritis: YES Left Upper Extremity Right Lower Extremity Right Upper Extremity 2. Height: 5 ft. 3 in. 160.0 cm. Weight: 140.0 lb. oz. 63.504 kg. Patient's BMI: 24.8 3. Vital Signs: BP: 120/69 Pulse: 113 Resp: 16 Temp: 02 Sat: 97 ECG Mon: 4. Pain Intensity: 7 5. Fall Risk: Dizziness: N Needs help standing or walking: N Fallen in the last 3 months: N Fall risk comments: 6. Patient on Blood Thinner: None 7. History of Hypertension: Y 8. Opioid Therapy greater than 6 weeks: Y Opiate Contract Signed: 12/22/16 9. Risk Assessment Tool Provided: 1-LOW 10. Functional Assessment Tool: 11. Recreational Drug Use: Never Drug Type: Tobacco Use: Never Smoker Tobacco Type: Amount or Packs/day: How Many Years: Alcohol Use: No Frequency: Quant:
--- NOTE | 2019-11-08 16:07 | HPC ---
[facility] [address] [place] [address] PAIN MANAGEMENT CONSULTATION Name: BARBIEALEX LEE Room #: REG [facility] Zulema.#: [id number] Admission: 11/07/19 Attend Phys: Khadijah Escobedo Discharge: Date of : 60 Report #: [id number] THIS REPORT FOR: //name// CC: Khadijah Escobedo Yvan Aguirre DATE OF SERVICE: 11/07/2019 CHIEF COMPLAINT: Back pain. HISTORY OF PRESENT ILLNESS: This is a 59-year-old female who returns to the pain clinic today. She reports that she recently had a kyphoplasty on multiple levels on her thoracic spine on Tuesday. She is still having pain in her mid back as well as her lower back that does radiate into her chest slightly. She also feels that she has pain in her hands and feet from her rheumatoid arthritis. She reports that she ran out of her pain medicine 2 days ago and her pain score today is 7/10. Her pain is worse with any activity and walking. She reports that [place] was not enjoyable for her because her pain was increased due to her new compression fractures. She does report if she sits still or uses ice and her medications, she does find those somewhat beneficial in relieving some of her pain. ALLERGIES: SULFA, TEMAZEPAM, COMPAZINE, NAPROXEN, METHOTREXATE, CIPRO, METOPROLOL, AMOXICILLIN, METFORMIN, TRAZODONE, AND LEFLUNOMIDE. CURRENT LIST OF MEDICATIONS: Oxycodone 10/325 p.r.n., methadone 10 mg daily, Flexeril 10 mg p.r.n., biotin, zinc, vitamin B12, multivitamin, folic acid, fiber, Amaryl, Prozac, Caltrate, losartan, amlodipine, alprazolam, Carafate, Prilosec, Plaquenil, Voltaren gel and pravastatin. PQRS: 1. She does have osteoarthritis in her back as well as rheumatoid arthritis in her upper and lower extremities. 2. Height is 5 feet 3 inches, weight is 140, BMI is 24. 3. Vital signs 120/69, pulse is 113, respirations 16, oxygen sat is 97. 4. Pain score is 7/10. 5. Denies dizziness, does not need help walking or standing, has not fallen in the last 3 months. 6. The patient is not on any blood thinners, but does take medicine for hypertension. 7. Opioid therapy is greater than 6 weeks; therefore, an opioid signed contract is on the chart. Risk assessment tool is low. Functional assessment is 29/70. 8. Recreational drug use, she denies. She is not a smoker and does not drink alcohol. According to the prescription monitoring system, the patient is due to fill her [address] [address] PAIN MANAGEMENT CONSULTATION Name: ALEX VALENTIN Room #: REG CL Zulema.#: [id number] Admission: 11/07/19 Attend Phys: Khadijah Escobedo Discharge: Date of : 60 Report #: [id number] medications today. According to the CDC guidelines, her morphine mEq is 90 MME per day. PHYSICAL EXAMINATION: GENERAL: This is alert and orientated, slightly depressed 59-year-old female who appears slightly older than her stated age. HEENT: Normocephalic, atraumatic. Extraocular eye muscles are intact. She does have numerous missing teeth, which are fracturing as a result of her osteoporosis. NECK: Without adenopathy. She has a kyphotic posture in her upper thoracic area. EXTREMITIES: Upper extremity strength judged to be 5/5 for all major muscle groups. Lower extremity strength judged to be 5/5. She walks with an antalgic gait. She complains of tenderness in her thoracic and lumbar portions of her spine. Pain is also located in her bilateral knees. IMPRESSION: 1. History of recent kyphoplasty at multiple levels. 2. Thoracic and lumbar back pain. 3. Rheumatoid arthritis. 4. Migraines. 5. Anxiety and depression. 6. Osteoporosis. 7. Low back pain, status post lumbar fusion. 8. Complex medical management under terms of written opioid agreement. We reviewed the fact that opiate medications are being used to provide analgesia adequate to support activities of daily living, not attempting to achieve a specific pain score on the 0-10 Visual Analog Scale. The current opiate medications are providing sufficient analgesia to allow the patient to participate in activities of daily living. The patient is not exhibiting any aberrant behavior suggestive of drug diversion. The patient is not having any adverse reactions to medications. The patient is not suffering from daytime somnolence or mental acuity changes. The patient is managing opiate-induced constipation with appropriate [id number] agents and dietary considerations. The patient was counseled on concern for caution with operating a motor vehicle while using opiate medications. PLAN: 1. We discussed treatment options with the patient today. The patient reports that she underwent kyphoplasty on Tuesday for multiple new compression fractures. She continues to have ongoing thoracic pain. I did discuss in great length with her about a thoracic, lumbar brace. She does report a company has been calling her. I encouraged her to call that company and to be fitted for a new brace. This should help decrease some of her ongoing back pain and hopefully, her pain will diminish since she had her procedure 2 days ago. [address] [address] PAIN MANAGEMENT CONSULTATION Name: ALEX VALENTIN Room #: REG [facility] Angelica#: [id number] Admission: 11/07/19 Attend Phys: Khadijah Escobedo Discharge: Date of : 60 Report #: [id number] 2. We will refill her medications today of her methadone 10 mg, #30 as well as oxycodone 10/325, #120. The patient has been out for 2 days. I believe that restarting her medications will also help decrease her pain from 7/10 to a lower number. 3. We will also refill her Flexeril. 4. The patient is seen today in collaboration with Dr. Mike Perkins. We will make an appointment with him for 1 month followup. <ELECTRONICALLY SIGNED> By: Khadijah Escobedo 11/08/19 1607 [id number] [id number] Khadijah Escobedo /chapo
== END ==
LOC: PAIN 06:43
DX: M54.5 Low back pain (principal); M54.6 Pain in thoracic spine; G43.909 Migraine, unspecified, not intractable, without status migrainosus; F41.9 Anxiety disorder, unspecified; F32.9 Major depressive disorder, single episode, unspecified; M81.0 Age-related osteoporosis without current pathological fracture; Z79.891 Long term (current) use of opiate analgesic

== ENCOUNTER → 2019-12-05 | Outpatient (CLI) | payer OTHER, BC ==
[~2019-12-05] VITALS: Ht 160 cm; Wt 61.1 kg
[~2019-12-05] MED LIST changes: +TURMERIC500 M2 PO
[2019-12-05 11:02] VITALS: BP 134/69
--- NOTE | 2019-12-05 11:13 | NUR ---
Pain Clinic Assessment: 1. History of Osteoarthritis: back History of Rheumatoid Arthritis: YES Left Upper Extremity Right Lower Extremity Right Upper Extremity 2. Height: 5 ft. 3 in. 160.0 cm. Weight: 134.8 lb. oz. 61.145 kg. Patient's BMI: 23.9 3. Vital Signs: BP: 134/69 Pulse: 111 Resp: 14 Temp: 02 Sat: 97 ECG Mon: 4. Pain Intensity: 7 5. Fall Risk: Dizziness: N Needs help standing or walking: N Fallen in the last 3 months: N Fall risk comments: 6. Patient on Blood Thinner: None 7. History of Hypertension: Y 8. Opioid Therapy greater than 6 weeks: Y Opiate Contract Signed: 12/22/16 9. Risk Assessment Tool Provided: 1-LOW 10. Functional Assessment Tool: 11. Recreational Drug Use: Never Drug Type: Tobacco Use: Never Smoker Tobacco Type: Amount or Packs/day: How Many Years: Alcohol Use: No Frequency: Quant:
--- NOTE | 2019-12-07 08:40 | HPC ---
[facility] [place] [address] PAIN MANAGEMENT CONSULTATION Name: ALEX VALENTIN Room #: REG [facility].#: [id number] Admission: 12/05/19 Attend Phys: Rehana Perkins MD Discharge: Date of : 60 Report #: [id number] THIS REPORT FOR: cc: Yvan Aguirre MD, Neal A. MD Brown,Rehana Baxter MD ~ THIS REPORT FOR: //name// CC: Rehana Aguirre DATE OF SERVICE: 12/05/2019 CHIEF COMPLAINT: "I think I may have broken another vertebrae." HISTORY: The patient is a 59-year-old female who has been followed in the Pain Clinic because of chronic pain. As you recall, she has significant osteoporosis. She has undergone a number of compression fractures. She is not sure, but feels she may have broken another vertebrae. Rates her pain today as a 7/10. Has pain in the back as well as in the neck. Has a burning, stinging feeling in her back area. Notes that the pain is worse with walking, standing for long periods, and bending. Notes that pain somewhat improves when she is sitting. Use of cold, heat and medications help decrease the discomfort. She has returned today with the hopes of renewing her medications. ALLERGIES: SULFA, TEMAZEPAM, COMPAZINE, NAPROXEN, METHOTREXATE, CIPRO, METOPROLOL, AMOXICILLIN, METFORMIN, TRAZODONE AND LEFLUNOMIDE. CURRENT MEDICATIONS: Oxycodone 10/325, methadone 10 mg daily, Flexeril 10 mg p.r.n., biotin, zinc, vitamin B12, multivitamins, folic acid, fiber, Amaryl, Prozac, Caltrate, losartan, amlodipine, alprazolam, Carafate, Prilosec, Plaquenil, Voltaren gel, and pravastatin. PAIN CLINIC ASSESSMENT/PQRS: 1. The patient has some osteoarthritic changes in her back as well as rheumatoid arthritis in her upper and lower extremities. 2. Height 5 feet 3 inches, weight 134 pounds, BMI is 23.9. 3. Vital signs: Blood pressure 139/69, pulse 111, respiratory rate 14, and room air saturation 97%. 4. Pain intensity, 10. 5. Fall history: The patient has not fallen in the last 3 months. 6. Blood thinner. The patient is not on a blood thinning medication. 7. Hypertension. The patient is being treated for hypertension. 8. Opioids greater than 6 weeks. The patient received medication from one source, Pain Clinic. 9. Risk assessment tool, [place] [address] PAIN MANAGEMENT CONSULTATION Name: ALEX VALENTIN Room #: REG CL Angelica#: [id number] Admission: 12/05/19 Attend Phys: Rehana Perkins MD Discharge: Date of : 60 Report #: [id number] 10. Functional assessment tool, . 11. Recreational drug use: The patient denies. 12. Tobacco: The patient has never smoked. 13. Alcohol. The patient denies use of alcoholic beverages. PHYSICAL EXAMINATION: GENERAL: The patient is a well-developed, well-nourished white female, appears somewhat depressed. She is unaccompanied. HEENT: Normocephalic, atraumatic. Extraocular eye muscles intact. Sclerae nonicteric. The patient has some fractures of a number of teeth. States that her teeth continue to fracture because of her osteoporosis. NECK: Without adenopathy. MUSCULOSKELETAL: The patient has a significant amount of kyphosis and in the upper thoracic area. Upper extremity muscle strength judged to be 5-/5 for the major muscle groups in the upper extremity. Muscle strength in lower extremity 5-/5 for the major muscle groups in the lower extremity. The patient walks with an antalgic gait. Complains of tenderness throughout her thoracic and lumbar areas of the spine. Also, complains of pain in her knees bilaterally. IMPRESSION: 1. History of recent kyphoplasty at multiple levels. The patient feels she may have had another compression fracture since we saw her last. 2. Thoracic and lumbar back pain. 3. Rheumatoid arthritis. 4. Migraines. 5. Anxiety and depression. 6. Osteoporosis. 7. Chronic low back pain, status post lumbar fusion in the past. 8. Complex medical management using opioid medications. RECOMMENDATIONS: We discussed treatment options with the patient. At this juncture, she will continue with her current medications. We have discussed the benefits in the past week of wearing a corset/brace to help decrease the kyphosis in the upper area. She has not been able to get this at this juncture. We explained to the patient not to carry heavy items. We explained to the patient that generally there is a limit to the number of kyphoplasties one can perform, depends on where the site of fracture is. At this juncture, we will continue with her current medical regimen of methadone 10 mg 1 p.o. at noon. She will also continue with oxycodone 10/325 one p.o. q.i.d. We would like to thank you for letting us participate in her care. Again, we encouraged the patient to try to get a brace. <ELECTRONICALLY SIGNED> By: Rehana Perkins MD 12/07/19 0840 [id number] Rehana Perkins MD /nt
== END ==
LOC: PAIN 06:48
DX: M54.5 Low back pain (principal); M54.6 Pain in thoracic spine; G89.29 Other chronic pain; M06.9 Rheumatoid arthritis, unspecified; G43.909 Migraine, unspecified, not intractable, without status migrainosus; F32.9 Major depressive disorder, single episode, unspecified; F41.9 Anxiety disorder, unspecified; M81.0 Age-related osteoporosis without current pathological fracture; Z98.1 Arthrodesis status; Z98.890 Other specified postprocedural states; Z88.2 Allergy status to sulfonamides; Z88.1 Allergy status to other antibiotic agents; Z88.8 Allergy status to other drugs, medicaments and biological substances; Z79.899 Other long term (current) drug therapy

== ENCOUNTER → 2019-12-18 | Outpatient (CLI) | payer OTHER, BC | LOC: SJCVC 11:08 → MRI 11:08 | DX: S32.000D Wedge compression fracture of unspecified lumbar vertebra, subsequent encounter for fracture with routine healing (principal); X58.XXXD Exposure to other specified factors, subsequent encounter; M43.8X4 Other specified deforming dorsopathies, thoracic region ==

== ENCOUNTER → 2019-12-21 | Outpatient (CLI) | payer OTHER, BC ==
--- NOTE | 2019-12-23 20:17 | SLE ---
[facility] [place] [address] POLYSOMNOGRAPHY STUDY Name: BARBIEALEX NATHANAEL Room #: REG [facility]#: [id number] Admission: 12/21/19 Attend Phys: Brigid Flores MD Discharge: Date of : 60 Report #: [id number] THIS REPORT FOR: //name// CC: Brigid Aguirre DATE OF SERVICE: 12/22/2019 SLEEP STUDY REFERRING PHYSICIAN: Dr. Jesica Ontiveros The patient is a 59-year-old who weighs 135 pounds with a BMI of 24.7. The patient's Knickerbocker score was 7. The patient has history of sleep apnea for which she has been on BiPAP. Another split night study was ordered by primary care physician to requalify her for her BiPAP. During the night study, the patient spent 499 minutes in bed and slept for 448 minutes with a sleep efficiency of 89.7%. Sleep latency was 9.4 minutes with a REM latency of 115 minutes. Sleep architecture showed normal stage 1 sleep, increased stage 2 sleep, absent slow wave and reduced REM sleep, which was 13% of total sleep time. During the night study, the patient had no obstructive or mixed apneas. There were 4 central apneas and 5 hypopneas. The patient's apnea-hypopnea index was only 1.2 per hour with a REM index of 7 per hour and a supine index of 1.2 per hour. EKG monitoring revealed an average heart rate of 90 beats per minute. No sustained arrhythmias observed. PLMS were seen at an index of 9 per hour and 1 per hour caused EEG arousals. The patient normally uses oxygen at home. This study was done on room air. The patient's average oxygen saturation remained around 86% with the lowest of 77%. A 446 minutes were spent in oxygen saturation of less than 89%. The pattern was consistent with hypoventilation. IMPRESSION: 1. No clinically significant sleep disorder breathing. The patient's AHI for the entire night was 1.2 per hour. 2. Sustained pattern of nocturnal hypoxia suggesting hypoventilation. Need to rule out any cardiac or pulmonary conditions contributing to the patient's hypoxia. 3. No clinically significant periodic limb movements. [facility] [address] [place] [address] POLYSOMNOGRAPHY STUDY Name: BARBIEALEX NATHANAEL Room #: REG [facility]#: [id number] Admission: 12/21/19 Attend Phys: Brigid Flores MD Discharge: Date of : 60 Report #: [id number] RECOMMENDATIONS: 1. The patient did not meet the split night criteria for CPAP or BiPAP initiation due to low AHI. 2. Avoid [employer] depressants. 3. The patient should continue to use oxygen at nighttime at least 2 liters. 4. Workup of nocturnal hypoxia. As discussed above. <ELECTRONICALLY SIGNED> By: Priyank Tran MD 12/23/192016 32 43 Priyank Tran MD /chapo
== END ==
LOC: SLEEPLAB 11-13 16:55
DX: R09.02 Hypoxemia (principal); G47.33 Obstructive sleep apnea (adult) (pediatric)

== ENCOUNTER → 2020-01-02 | Outpatient (CLI) | payer OTHER, BC ==
[~2020-01-02] VITALS: Ht 160 cm; Wt 59.2 kg
[2020-01-02 10:48] VITALS: BP 120/64
--- NOTE | 2020-01-02 11:00 | NUR ---
Pain Clinic Assessment: 1. History of Osteoarthritis: back History of Rheumatoid Arthritis: YES Left Upper Extremity Right Lower Extremity Right Upper Extremity 2. Height: 5 ft. 3 in. 160.0 cm. Weight: 130.6 lb. oz. 59.240 kg. Patient's BMI: 23.1 3. Vital Signs: BP: 120/64 Pulse: 110 Resp: 14 Temp: 02 Sat: 96 ECG Mon: 4. Pain Intensity: 4-5 5. Fall Risk: Dizziness: N Needs help standing or walking: N Fallen in the last 3 months: N Fall risk comments: 6. Patient on Blood Thinner: None 7. History of Hypertension: Y 8. Opioid Therapy greater than 6 weeks: Y Opiate Contract Signed: 12/22/16 9. Risk Assessment Tool Provided: 1-LOW 10. Functional Assessment Tool: 11. Recreational Drug Use: Never Drug Type: Tobacco Use: Never Smoker Tobacco Type: Amount or Packs/day: How Many Years: Alcohol Use: No Frequency: Quant:
--- NOTE | 2020-01-03 09:00 | HPC ---
[facility] [address] [place] [address] PAIN MANAGEMENT CONSULTATION Name: ALEX VALENTIN Room #: REG [facility].#: [id number] Admission: 01/02/20 Attend Phys: Khadijah Escobedo Discharge: Date of : 60 Report #: [id number] THIS REPORT FOR: cc: Yvan Aguirre MD, Neal A. MD Hocker,Khadijah MADSEN ~ DATE OF SERVICE: 01/02/2020 CHIEF COMPLAINT: Chronic back pain, status post compression fractures. HISTORY OF PRESENT ILLNESS: This is a 59-year-old female who returns to the pain clinic today for refill of her medications. She is quite depressed today stating she continues to lose height in her back due to continued compression fractures. She feels that she is unable to do several things around the house that she used to because she is afraid that she may have another fracture. She has not yet received her back brace from the back brace [employer]. She states that she has lost significant weight since her previous brace and it does not fit her properly and it only covered her lumbar spine region not her thoracic region. Today, the patient is reporting her pain score at 4/5. She feels that it is chronic and deep ache and occasional burning, especially with any activities. She states the medicines are beneficial as well as sitting and using heat or ice. She denies any problems with constipation or daytime sleepiness. ALLERGIES: SULFA, TEMAZEPAM, COMPAZINE, NAPROXEN, METHOTREXATE, BACTRIM, CIPRO, METOPROLOL, AMOXICILLIN, METFORMIN, TRAZODONE AND LEFLUNOMIDE. MEDICATIONS: Plaquenil, Voltaren gel, Pravachol, omeprazole, Carafate, oxycodone 10/325, ,methadone 10 mg daily, Flexeril, turmeric, biotin, zinc, B12, multivitamin, folic acid, fiber, Amaryl, Prozac, calcium citrate, losartan, amlodipine, alprazolam, and Carafate. PQRS: 1. She has arthritic changes in her back and being treated for rheumatoid arthritis. 2. Height is 5 feet 3 inches, weight is 130, BMI is 23. 3. Vital signs, blood pressure 120/64, pulse is 110, respirations 14, oxygen sat is 96. 4. Pain score is 4-5. 5. Denies dizziness, does not need help walking or standing, has not fallen in the last 3 months. 6. The patient is not on any blood thinners, but does suffer from hypertension. Her opioid therapy is greater than 6 weeks; therefore, an opioid signed contract is on the chart. Risk assessment tool is low. Functional assessment is . [address] [address] PAIN MANAGEMENT CONSULTATION Name: ALEX VALENTIN Room #: REG [facility]#: [id number] Admission: 01/02/20 Attend Phys: Khadijah Escobedo Discharge: Date of : 60 Report #: [id number] 7. Recreational drug use, she denies. She is not a smoker and does not drink alcohol. According to the prescription monitoring system, the patient is due to fill her medicines today. According to the CDC guidelines, she is at 90 morphine mEq per day on her current dose. There is a drug screen on the chart that is appropriate. PHYSICAL EXAMINATION: GENERAL: This is alert and orientated, somewhat depressed female who appears her stated age, placing her pain score at 4-5 today. HEENT: Normocephalic, atraumatic. Extraocular eye muscles are intact. Mucous membranes are moist. She has numerous fractured teeth as a result of her osteoporosis. NECK: Without adenopathy or JVD. MUSCULOSKELETAL: She has significant kyphosis in the thoracic region. Her upper extremity strength judged to be 5/5 in all major muscle groups. She has pain that radiates into her lumbar spine as well as in her thoracic area. She has an antalgic gait that is slow. IMPRESSION: 1. History of recent kyphoplasty at multiple levels. 2. Thoracic and lumbar back pain. 3. Rheumatoid arthritis. 4. Migraines. 5. Anxiety and depression. 6. Osteoporosis. 7. Chronic low back pain, status post lumbar fusion. 8. Complex medical management utilizing opioid medications. We reviewed the fact that opiate medications are being used to provide analgesia adequate to support activities of daily living, not attempting to achieve a specific pain score on the 0-10 Visual Analog Scale. The current opiate medications are providing sufficient analgesia to allow the patient to participate in activities of daily living. The patient is not exhibiting any aberrant behavior suggestive of drug diversion. The patient is not having any adverse reactions to medications. The patient is not suffering from daytime somnolence or mental acuity changes. The patient is managing opiate-induced constipation with appropriate [id number]-mrrrvnr agents and dietary considerations. The patient was counseled on concern for caution with operating a motor vehicle while using opiate medications. PLAN: 1. We discussed treatment options with the patient today. The patient has not received her brace from a company outside hospital that was ordered. I believe she would benefit from a [place] brace that would help her thoracic as well as [facility] [address] [place] [address] PAIN MANAGEMENT CONSULTATION Name: ALEX VALENTIN Room #: REG [facility]#: [id number] Admission: 01/02/20 Attend Phys: Khadijah Escobedo Discharge: Date of : 60 Report #: [id number] her lumbar region. Her current brace from her lumbar region only is not sufficient in helping her thoracic pain and helping prevent additional compression fractures. The patient has also lost significant weight since she received that brace and it is not the appropriate size for her. The patient has had multiple kyphoplasties. We are trying to prevent further fractures by using a brace on a daily basis. We will assist her in this process. 2. We will refill her methadone 10 mg, #30. The patient takes at noon as well as her oxycodone 10/325. The patient takes up to 4 tablets a day. These will be written by Dr. Mike Perkins, who did see the patient and collaborated care today. The patient will return in 1 month for an appointment. <ELECTRONICALLY SIGNED> By: Khadijah Escobedo 01/03/20 0900 1309 07 Khadijah Escobedo /chapo
== END ==
LOC: PAIN 06:49
DX: M54.5 Low back pain (principal); M54.6 Pain in thoracic spine; G89.29 Other chronic pain; M06.9 Rheumatoid arthritis, unspecified; M81.0 Age-related osteoporosis without current pathological fracture; G43.909 Migraine, unspecified, not intractable, without status migrainosus; F32.9 Major depressive disorder, single episode, unspecified; F41.9 Anxiety disorder, unspecified; Z98.1 Arthrodesis status; Z98.890 Other specified postprocedural states; Z88.2 Allergy status to sulfonamides; Z88.8 Allergy status to other drugs, medicaments and biological substances; Z88.1 Allergy status to other antibiotic agents; Z79.899 Other long term (current) drug therapy

== ENCOUNTER → 2020-01-30 | Outpatient (CLI) | payer OTHER, BC ==
[~2020-01-30] VITALS: Ht 160 cm; Wt 58.4 kg
[~2020-01-30] MED LIST changes: +PRILOSEC OTC20 MG PO
[2020-01-30 11:21] VITALS: BP 107/75
--- NOTE | 2020-01-30 11:32 | NUR ---
Pain Clinic Assessment: 1. History of Osteoarthritis: back History of Rheumatoid Arthritis: YES Left Upper Extremity Right Lower Extremity Right Upper Extremity 2. Height: 5 ft. 3 in. 160.0 cm. Weight: 128.8 lb. oz. 58.423 kg. Patient's BMI: 22.8 3. Vital Signs: BP: 107/75 Pulse: 124 Resp: 14 Temp: 02 Sat: 96 ECG Mon: 4. Pain Intensity: 8 5. Fall Risk: Dizziness: N Needs help standing or walking: N Fallen in the last 3 months: N Fall risk comments: 6. Patient on Blood Thinner: None 7. History of Hypertension: Y 8. Opioid Therapy greater than 6 weeks: Y Opiate Contract Signed: 12/22/16 9. Risk Assessment Tool Provided: 1-LOW 10. Functional Assessment Tool: 11. Recreational Drug Use: Never Drug Type: Tobacco Use: Never Smoker Tobacco Type: Amount or Packs/day: How Many Years: Alcohol Use: No Frequency: Quant:
--- NOTE | 2020-01-31 07:56 | HPC ---
[facility] [address] [place] [address] PAIN MANAGEMENT CONSULTATION Name: ALEX VALENTIN NATHANAEL Room #: REG [facility].#: [id number] Admission: 01/30/20 Attend Phys: Khadijah Escobedo Discharge: Date of : 60 Report #: [id number] THIS REPORT FOR: cc: Yvan Aguirre MD, Neal A. MD Hocker,Khadijah MADSEN ~ DATE OF SERVICE: 01/30/2020 CHIEF COMPLAINT: Chronic back pain, status post compression fractures. HISTORY OF PRESENT ILLNESS: This is a pleasant 59-year-old slightly depressed female who returns to the pain clinic today for refill of her medications. She is reporting a pain score of 8/10 today. She continues to have significant back pain, though does complain of hands and foot pain from her rheumatoid arthritis today as well, rating her pain score as 8/10. It is an aching and burning feeling with any activity and walking. She is wearing a brace today and she feels that has been slightly beneficial in helping relieve some of her back pain. Today, she is requesting refills of her medication. The patient also reports she has been having some GI issues. She has lost some weight and had some bloody stools. She reports that she is seeing a GI specialist tomorrow regarding this. Her weight today is down 1 pound from a month ago per our records. ALLERGIES: SULFA, TEMAZEPAM, COMPAZINE, NAPROXEN, METHOTREXATE, BACTRIM, CIPRO, METOPROLOL, AMOXICILLIN, METFORMIN, TRAZODONE AND LEFLUNOMIDE. CURRENT MEDICATIONS: Prilosec, methadone 10 mg daily, Oxycodone 10/325 q.i.d. p.r.n., Flexeril, turmeric, biotin, zinc, vitamin B12, multivitamin, folic acid, fiber, Amaryl, calcium, losartan, amlodipine, alprazolam, Carafate, Plaquenil, Voltaren, and pravastatin. PQRS: 1. She has arthritic changes in her back as well as being treated for rheumatoid arthritis. 2. Height is 5 feet 3 inches, weight is 128, BMI is 22. 3. Vital signs 107/75, pulse is 124, respirations are 14, oxygen sat is 96. 4. Pain score is 8/10. 5. Denies dizziness, does not need help walking or standing, has not fallen in the last 3 months. She is not on any blood thinners, but does take medicine for hypertension. Her opioid therapy is greater than 6 weeks; therefore, an opioid signed contract is on the chart. Risk assessment tool is low. Functional assessment is 29/70. 6. Recreational drug use, she denies. She is not a smoker and does not drink alcohol. [address] [address] PAIN MANAGEMENT CONSULTATION Name: ALEX VALENTIN Room #: REG [facility] Angelica#: [id number] Admission: 01/30/20 Attend Phys: Khadijah Escobedo Discharge: Date of : 60 Report #: [id number] According to the prescription monitoring system, the patient is filling appropriately for her medications. She is due to fill those medicines today. According to the CDC guidelines, her morphine mEq is 90 MME per day. PHYSICAL EXAMINATION: GENERAL: This is alert and orientated female who appears older than her stated age and is slightly depressed today, rating her pain score at 8/10. HEENT: Normocephalic, atraumatic. Extraocular eye muscles are intact. Mucous membranes are moist. She has numerous fractured teeth and poor dentition. NECK: Without adenopathy or JVD. MUSCULOSKELETAL: She has kyphosis in the thoracic region. She is wearing a lumbar brace today. She walks with a slow antalgic gait. Her lower extremity strength judged to be 4/5 in all major muscle groups and is deconditioned. IMPRESSION: 1. History of kyphoplasty at multiple levels. 2. Thoracic and lumbar pain. 3. Rheumatoid arthritis. 4. Migraines. 5. Anxiety and depression. 6. Osteoporosis. 7. Chronic low back pain, status post lumbar fusion. 8. Complex medical management utilizing medications. We reviewed the fact that opiate medications are being used to provide analgesia adequate to support activities of daily living, not attempting to achieve a specific pain score on the 0-10 Visual Analog Scale. The current opiate medications are providing sufficient analgesia to allow the patient to participate in activities of daily living. The patient is not exhibiting any aberrant behavior suggestive of drug diversion. The patient is not having any adverse reactions to medications. The patient is not suffering from daytime somnolence or mental acuity changes. The patient is managing opiate-induced constipation with appropriate hwda-wkf-xokkqkb agents and dietary considerations. The patient was counseled on concern for caution with operating a motor vehicle while using opiate medications. PLAN: 1. We discussed treatment options with the patient today. The patient is wearing a lumbar brace today. She has not received her [place] brace though at least she is attempting to wear some brace at all times to help decrease her thoracic and lumbar pain. 2. We will refill her methadone 10 mg once a day today as well as her oxycodone 10/325 up to 4 tablets a day. These meds will be written by Dr. Mike Perkins. She finds them beneficial in controlling her pain. 3. I will electronically send her Flexeril #90 with 2 additional refills to the [facility] [address] [place] [address] PAIN MANAGEMENT CONSULTATION Name: ALEX VALENTIN NATHANAEL Room #: REG [facility].#: [id number] Admission: 01/30/20 Attend Phys: Khadijah Escobedo Discharge: Date of : 60 Report #: [id number] pharmacy. 4. I explained to the patient with the COVID outbreak, we are unsure if there will be a problem with supply chain of her opioids and encouraged her to take the lowest most effective dose if she is able to have a small supply at home. We do not want to have her go through any withdrawals. The patient verbalizes understanding. We encouraged her to do this with her breakthrough pain medicine and not her long acting. 5. The patient is seen in collaboration with Dr. Perkins. The patient will return in 1 month. <ELECTRONICALLY SIGNED> By: Khadijah Escobedo 01/31/20 0756 [id number] [id number] Khadijah Escobedo /nt
== END | disposition home or self-care (01) ==
LOC: PAIN 06:49
DX: M54.5 Low back pain (principal); G89.29 Other chronic pain; M54.9 Dorsalgia, unspecified; M06.9 Rheumatoid arthritis, unspecified; F32.9 Major depressive disorder, single episode, unspecified; F41.9 Anxiety disorder, unspecified; M81.0 Age-related osteoporosis without current pathological fracture; G43.909 Migraine, unspecified, not intractable, without status migrainosus; Z98.890 Other specified postprocedural states; Z79.899 Other long term (current) drug therapy; Z79.891 Long term (current) use of opiate analgesic

== ENCOUNTER → 2020-02-27 | Outpatient (CLI) | payer OTHER, BC ==
[~2020-02-27] VITALS: Ht 160 cm; Wt 57.7 kg
[~2020-02-27] MED LIST changes: +VITAMIN D310 MC1 PO; +ZOFRAN4 MG PO
[2020-02-27 10:02] VITALS: BP 100/64
--- NOTE | 2020-02-27 10:16 | NUR ---
Pain Clinic Assessment: 1. History of Osteoarthritis: back History of Rheumatoid Arthritis: YES Left Upper Extremity Right Lower Extremity Right Upper Extremity 2. Height: 5 ft. 3 in. 160.0 cm. Weight: 127.2 lb. oz. 57.697 kg. Patient's BMI: 22.5 3. Vital Signs: BP: 100/64 Pulse: 102 Resp: 14 Temp: 02 Sat: 96 ECG Mon: 4. Pain Intensity: 6 5. Fall Risk: Dizziness: N Needs help standing or walking: N Fallen in the last 3 months: N Fall risk comments: 6. Patient on Blood Thinner: None 7. History of Hypertension: Y 8. Opioid Therapy greater than 6 weeks: Y Opiate Contract Signed: 12/22/16 9. Risk Assessment Tool Provided: 1-LOW 10. Functional Assessment Tool: 11. Recreational Drug Use: Never Drug Type: Tobacco Use: Never Smoker Tobacco Type: Amount or Packs/day: How Many Years: Alcohol Use: No Frequency: Quant:
--- NOTE | 2020-02-28 08:03 | HPC ---
[facility] [place] [address] PAIN MANAGEMENT CONSULTATION Name: ALEX VALENTIN [id number] Admission: 02/27/20 Attend Phys: Khadijah Escobedo Discharge: Date of : 60 Report #: [id number] THIS REPORT FOR: cc: Yvan Aguirre MD, Neal A. MD Hocker, Amanda CNS ~ CC: Rolando Perkins MD DATE OF SERVICE: 02/27/2020 CHIEF COMPLAINT: Chronic back pain, status post compression fractures. HISTORY OF PRESENT ILLNESS: This is a 59-year-old female who returns to the pain clinic today for refill of her opioid medications that she uses to help treat her ongoing low back pain. Today, she is also reporting some left shoulder pain as well. She states she recently reinjured an old fracture in her shoulder, has been in a sling and doing exercises. It is slowly healing. Today, she reports a pain score of 6/10 in her mid back as well as her left shoulder. She is not wearing a brace today. Continues to have a lumbar brace, but not a thoracic brace and has not scheduled appointment to have this fitted. Her pain score is 6/10, worse with any activity, walking, bending and sitting. She feels that the medications have been beneficial in decreasing some of her pain as well as heat. She thinks that if she obtains her back brace, she will feel better, which I encouraged her to do on multiple appointments. ALLERGIES: SULFA, TEMAZEPAM, COMPAZINE, NAPROXEN, METHOTREXATE, BACTRIM, CIPRO, METOPROLOL, AMOXICILLIN, METFORMIN, TRAZODONE, AND LEFLUNOMIDE. PATIENT'S MEDICINES: Prozac, vitamin D, cranberry, Zofran, Flexeril, Prilosec, methadone 10 mg daily, oxycodone 10/324 up to 4 times a day, turmeric, biotin, zinc, vitamin B12, multivitamin, folic acid, fiber, Amaryl, vitamin D with calcium, losartan, amlodipine, alprazolam, Carafate, Plaquenil, Voltaren gel p.r.n., and pravastatin. PATIENT'S PQRS: 1. She has arthritic changes in her back as well as being treated for rheumatoid arthritis in multiple joints. 2. Height is 5 feet 3 inches, Weight is 127, BMI is 22. 3. Vital signs 100/64, pulse is 102, respirations 14, oxygen sat is 96. 4. Pain score 6/10. 5. Denies dizziness, does not need help walking or standing, has not fallen in the last 3 months. 6. The patient is not on any blood thinners, but does take medicine for hypertension. Her opioid therapy is greater than 6 weeks; therefore, an opioid signed contract is on the chart. Risk assessment tool is low. Functional assessment is . [address] [address] PAIN MANAGEMENT CONSULTATION Name: ALEX VALENTIN Room #: REG ALIA Dominguez#: [id number] Admission: 02/27/20 Attend Phys: Khadijah Escobedo Discharge: Date of : 60 Report #: [id number] 7. Recreational drug use, she denies. She is not a smoker and does not drink alcohol. According to the prescription monitoring system, the patient last filled her medicines on 01/30/2020 filling in a timely fashion from Dr. Mike Perkins. Her morphine mEq is 90 MME per day according to the CDC guidelines. There is a drug screen on the chart as well. PHYSICAL EXAMINATION: GENERAL: This is alert and orientated, slightly depressed 59-year-old female who appears slightly older appearing than her stated age, placing her current pain score at 6/10. HEENT: Normocephalic, atraumatic. Extraocular eye muscles are intact. Mucous membranes are moist. She does have numerous fractured teeth. NECK: Without adenopathy or JVD. MUSCULOSKELETAL: She has kyphosis in the thoracic region. She is not wearing a brace today. She walks with a slow antalgic gait. She is deconditioned in her upper and lower extremities, complains of pain in her left shoulder with abduction and adduction today due to recent injury. She has full range of motion on her right arm. IMPRESSION: 1. History of kyphoplasty at multiple levels. 2. Thoracic and lumbar pain. 3. Rheumatoid arthritis. 4. Migraines. 5. Anxiety and depression. 6. Osteoporosis. 7. Chronic low back pain, status post lumbar fusion. 8. Complex medical management utilizing scheduled medications. We reviewed the fact that opiate medications are being used to provide analgesia adequate to support activities of daily living, not attempting to achieve a specific pain score on the 0-10 Visual Analog Scale. The current opiate medications are providing sufficient analgesia to allow the patient to participate in activities of daily living. The patient is not exhibiting any aberrant behavior suggestive of drug diversion. The patient is not having any adverse reactions to medications. The patient is not suffering from daytime somnolence or mental acuity changes. The patient is managing opiate-induced constipation with appropriate [id number] agents and dietary considerations. The patient was counseled on concern for caution with operating a motor vehicle while using opiate medications. A physical exam was performed and the patient's functional status was evaluated. All patients with back pain were advised against the bed rest greater than 4 days and were advised to return to normal activities. Pain score assessment was [facility] [address] [place] [address] PAIN MANAGEMENT CONSULTATION Name: BARBIEALEX NATHANAEL Room #: REG [facility].#: [id number] Admission: 02/27/20 Attend Phys: Khadijah Escobedo Discharge: Date of : 60 Report #: [id number] noted and the treatment plan was reviewed with the patient. All current medications, both prescribed and OTC were reviewed and reconciled on the electronic medical record. Tobacco screening was accomplished and smoking cessation was advised when indicated. BMI was noted and diet/exercise modification was recommended for all patients following outside normal parameters. I reviewed with the patient today their responsibilities to safeguard prescription medications, reviewed their responsibility to utilize medications only as prescribed by the physician. They are to seek and receive pain medications only from 1 physician group ( [facility]). They are to use 1 pharmacy and keep the clinic informed if they change pharmacies. Their responsibilities include making followup visits in a timely fashion and to avoid abrupt discontinuation of medication usage. Their responsibilities further include bringing their medications (bottles from the pharmacy with residual pills) to the visit for possible confirmation of pill counts and the patient understands it is their responsibility to submit to random drug screens to ensure both that the medications prescribed are present, and that no other controlled substances are present. All prescriptions provided today were generated electronically. PLAN: 1. We discussed with this patient again the importance of wearing a thoracic lumbar brace due to her history of multiple compression fractures. I encouraged the patient to call the brace company again today. She has various excuses why she has not called them. She does have a lumbar brace at home, but I believe that the thoracic lumbar brace would be much more beneficial in helping with her pain as well as her history of compression fractures. The patient reports she will try to call before her next appointment to receive a brace. 2. We will refill her methadone 10 mg once a day, #30, for a month as well as her oxycodone 10/325, #120. These will be sent electronically by Dr. Mike Perkins to her local pharmacy. 3. The patient does continue to take Flexeril, but she is not in need of this medication today. 4. The patient denies any constipation or daytime sleepiness as a result of all of her medications. 5. The patient will return in 1 month for a followup visit. The patient is seen today in collaboration with Dr. Mike Perkins. <ELECTRONICALLY SIGNED> By: Khadijah Escobedo 02/28/20 [id number] Khadijah Escobedo /chapo
== END ==
LOC: PAIN 07:42
DX: M54.5 Low back pain (principal); M06.9 Rheumatoid arthritis, unspecified; F41.8 Other specified anxiety disorders; M81.0 Age-related osteoporosis without current pathological fracture; F11.20 Opioid dependence, uncomplicated; Z88.1 Allergy status to other antibiotic agents; Z88.5 Allergy status to narcotic agent; Z91.048 Other nonmedicinal substance allergy status; Z98.1 Arthrodesis status; Z79.899 Other long term (current) drug therapy

== ENCOUNTER → 2020-03-26 | Outpatient (CLI) | payer OTHER, BC ==
[~2020-03-26] VITALS: Ht 160 cm; Wt 57.8 kg
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
[2020-03-26 10:13] VITALS: BP 106/59
--- NOTE | 2020-03-26 10:28 | NUR ---
Pain Clinic Assessment: 1. History of Osteoarthritis: back History of Rheumatoid Arthritis: YES Left Upper Extremity Right Lower Extremity Right Upper Extremity 2. Height: 5 ft. 3 in. 160.0 cm. Weight: 127.4 lb. oz. 57.788 kg. Patient's BMI: 22.6 3. Vital Signs: BP: 106/59 Pulse: 106 Resp: 14 Temp: 02 Sat: 96 ECG Mon: 4. Pain Intensity: 4 5. Fall Risk: Dizziness: N Needs help standing or walking: N Fallen in the last 3 months: N Fall risk comments: 6. Patient on Blood Thinner: None 7. History of Hypertension: Y 8. Opioid Therapy greater than 6 weeks: Y Opiate Contract Signed: 12/22/16 9. Risk Assessment Tool Provided: 1-LOW 10. Functional Assessment Tool: 11. Recreational Drug Use: Never Drug Type: Tobacco Use: Never Smoker Tobacco Type: Amount or Packs/day: How Many Years: Alcohol Use: No Frequency: Quant:
== END ==
LOC: PAIN 06:47
DX: G89.29 Other chronic pain (principal); M54.89 Other dorsalgia; M06.9 Rheumatoid arthritis, unspecified; G43.909 Migraine, unspecified, not intractable, without status migrainosus; M81.0 Age-related osteoporosis without current pathological fracture; F41.8 Other specified anxiety disorders; F11.90 Opioid use, unspecified, uncomplicated; Z88.1 Allergy status to other antibiotic agents

== ENCOUNTER → 2020-03-28 | Outpatient (CLI) | payer OTHER, BC | LOC: RAD 11:49 | DX: Z04.1 Encounter for examination and observation following transport accident (principal); M17.11 Unilateral primary osteoarthritis, right knee; M25.512 Pain in left shoulder ==

== ENCOUNTER → 2020-04-23 | Outpatient (CLI) | payer OTHER, BC ==
[~2020-04-23] VITALS: Ht 162.6 cm; Wt 55.5 kg
[2020-04-23 09:57] VITALS: BP 139/89
--- NOTE | 2020-04-23 10:03 | NUR ---
Pain Clinic Assessment: 1. History of Osteoarthritis: back History of Rheumatoid Arthritis: YES Left Upper Extremity Right Lower Extremity Right Upper Extremity 2. Height: 5 ft. 4 in. 162.6 cm. Weight: 122.4 lb. oz. 55.520 kg. Patient's BMI: 21.0 3. Vital Signs: BP: 139/89 Pulse: 118 Resp: 18 Temp: 02 Sat: 98 ECG Mon: 4. Pain Intensity: 6 5. Fall Risk: Dizziness: N Needs help standing or walking: N Fallen in the last 3 months: N Fall risk comments: 6. Patient on Blood Thinner: None 7. History of Hypertension: Y 8. Opioid Therapy greater than 6 weeks: Y Opiate Contract Signed: 12/22/16 9. Risk Assessment Tool Provided: 1-LOW 10. Functional Assessment Tool: 11. Recreational Drug Use: Never Drug Type: Tobacco Use: Never Smoker Tobacco Type: Amount or Packs/day: How Many Years: Alcohol Use: No Frequency: Quant:
--- NOTE | 2020-04-24 10:59 | HPC ---
[facility] [address] [place] [address] PAIN MANAGEMENT CONSULTATION Name: ALEX VALENTIN Room #: REG [facility].#: [id number] Admission: 04/23/20 Attend Phys: Khadijah Escobedo Discharge: Date of : 60 Report #: [id number] THIS REPORT FOR: cc: Yvan Aguirre MD, Neal A. MD Hocker, Amanda CNS ~ CC: Rolando PERKINS MD DATE OF SERVICE: 04/23/2020 CHIEF COMPLAINT: Chronic low back pain status post compression fractures. HISTORY OF PRESENT ILLNESS: As you know, this is a 59-year-old female who continues to have ongoing thoracic and lumbar back pain as a result of her osteoporosis. She has had numerous compression fractures with kyphoplasties and continues to have pain that is problematic in her back due to this. The patient is not wearing a brace, which we can encourage her to wear every single visit; though, she does not comply with this; therefore, her pain does continue to be problematic in her mid to low back. The patient states she also has rheumatoid arthritis in her hands and feet that do cause her discomfort as well. Her pain score today is 6/10, worse with activity and walking. She feels that medication as well as ice packs are most beneficial; though, she has been a hard time placing ice pack on her thoracic region and having it there for a prolonged period of time. She denies any problems with constipation or daytime somnolence as a result of her medicines. ALLERGIES: SULFA, TEMAZEPAM, COMPAZINE, NAPROXEN, METHOTREXATE, BACTRIM, CIPRO, TOPROL, AMOXICILLIN, METFORMIN, TRAZODONE, LEFLUNOMIDE. CURRENT LIST OF MEDICATIONS: Oxycodone 10/325, methadone 10 mg daily, Flexeril 10 mg p.r.n., Prozac, vitamin D, cranberry, Zofran, Prilosec, turmeric, biotin, zinc, vitamin B12, multivitamin, folic acid, fiber, Amaryl, calcium, losartan, amlodipine, alprazolam, Carafate, omeprazole, Plaquenil, Voltaren gel and pravastatin. PQRS: 1. She has osteoarthritis in her back and rheumatoid arthritis in her upper and lower extremities and osteoporosis. 2. Height is 5 feet 4 inches, weight is 122, BMI is 21. 3. Vital signs, blood pressure 139/89, pulse is 118, respirations 18, oxygen sat is 98. 4. Pain score 6/10. 5. Denies dizziness, does not need help walking or standing, has not fallen in the last 3 months. 6. The patient is not on any blood thinners, but does take medicine for hypertension. [address] [address] PAIN MANAGEMENT CONSULTATION Name: ALEX VALENTIN Room #: REG CL Angelica#: [id number] Admission: 04/23/20 Attend Phys: Khadijah Escobedo Discharge: Date of : 60 Report #: [id number] 7. Opioid therapy is greater than 6 weeks; therefore, an opioid signed contract is on the chart. Risk assessment tool is low. Functional assessment is 29/70. 8. Recreational drug use, she denies, not a smoker and does not drink alcohol. According to the prescription monitoring system, the patient is filling appropriately and is due to fill her medications today. Her morphine mEq is 90 MME per day. PHYSICAL EXAMINATION: GENERAL: This is alert and orientated, well-developed white female who appears her stated age, placing her current pain score at 6/10. HEENT: Normocephalic, atraumatic. She does have many fractured teeth, but does wear a mask today. NECK: Without adenopathy or JVD. MUSCULOSKELETAL: The patient has kyphosis in the thoracic area. She is not wearing a brace. She has had multiple compression fractures in her thoracic area, which causes significant pain and tenderness in that region. She is deconditioned. She has Jese wrap bandages on her arms. She does walk with an antalgic gait. She has wraps on her arms from skin tears per her report, they were not visualized today. IMPRESSION: 1. History of kyphoplasties at multiple levels due to compression fractures. 2. Thoracic and lumbar pain. 3. Rheumatoid arthritis. 4. Migraines. 5. Anxiety and depression. 6. Osteoporosis. 7. Chronic low back pain, status post lumbar fusion. 8. Complex medical management using opioids. PLAN: 1. We discussed treatment options with the patient today. The patient finds ice is most beneficial in her lower back as well as her opioid medications. I encouraged her to use an ice pack at the thoracic area. We discussed various ways to try and obtain ice in that area with her kyphosis. It is difficult. The patient will try the ways we did discuss. 2. Dr. Mike Perkins did send her methadone and oxycodone to her pharmacy for 1 month. These will be sent electronically. 3. The patient will follow up in 1 month's time. The patient reminded that she needs to be on time for her appointments or to call if she is running late. No Flexeril was sent today due to the patient's report not needing them. [address] [address] PAIN MANAGEMENT CONSULTATION Name: BARBIEALEX NATHANAEL Room #: REG ALIA Dominguez#: [id number] Admission: 04/23/20 Attend Phys: Khadijah Escobedo Discharge: Date of : 60 Report #: [id number] The patient is seen in collaboration with Dr. Mike Perkins. <ELECTRONICALLY SIGNED> By: Khadijah Escobedo 04/24/20 1059 [id number] Khadijah Escobedo /nt
== END ==
LOC: PAIN 06:38
PROVIDERS: ATTEND Clinical Nurse Specialist Adult Health
DX: M54.5 Low back pain (principal); G43.009 Migraine without aura, not intractable, without status migrainosus; M81.0 Age-related osteoporosis without current pathological fracture; M96.1 Postlaminectomy syndrome, not elsewhere classified; F11.20 Opioid dependence, uncomplicated; F41.8 Other specified anxiety disorders; M06.9 Rheumatoid arthritis, unspecified; M54.6 Pain in thoracic spine; Z87.81 Personal history of (healed) traumatic fracture; Z88.8 Allergy status to other drugs, medicaments and biological substances; Z79.899 Other long term (current) drug therapy

== ENCOUNTER → 2020-04-28 | Outpatient (CLI) | payer OTHER, BC | LOC: HYPER 13:24 | PROVIDERS: ATTEND Emergency Medicine | DX: E11.622 Type 2 diabetes mellitus with other skin ulcer (principal); L97.811 Non-pressure chronic ulcer of other part of right lower leg limited to breakdown of skin; S81.811D Laceration without foreign body, right lower leg, subsequent encounter; E11.39 Type 2 diabetes mellitus with other diabetic ophthalmic complication; H40.9 Unspecified glaucoma; E78.5 Hyperlipidemia, unspecified; G47.33 Obstructive sleep apnea (adult) (pediatric); G25.81 Restless legs syndrome; I10 Essential (primary) hypertension; K21.9 Gastro-esophageal reflux disease without esophagitis; M06.9 Rheumatoid arthritis, unspecified; M81.0 Age-related osteoporosis without current pathological fracture; F41.9 Anxiety disorder, unspecified; F32.9 Major depressive disorder, single episode, unspecified; Z90.710 Acquired absence of both cervix and uterus; Z87.891 Personal history of nicotine dependence; W10.8XXD Fall (on) (from) other stairs and steps, subsequent encounter ==

== ENCOUNTER → 2020-05-21 | Outpatient (CLI) | payer OTHER, BC ==
[~2020-05-21] VITALS: Ht 162.6 cm; Wt 56.3 kg
[2020-05-21 10:52] VITALS: BP 123/61
--- NOTE | 2020-05-21 11:05 | NUR ---
Pain Clinic Assessment: 1. History of Osteoarthritis: BACK History of Rheumatoid Arthritis: YES Left Upper Extremity Right Lower Extremity Right Upper Extremity 2. Height: 5 ft. 4 in. 162.6 cm. Weight: 123.4 lb. oz. 56.314 kg. Patient's BMI: 21.2 3. Vital Signs: BP: 123/61 Pulse: 100 Resp: 16 Temp: 02 Sat: 97 ECG Mon: 4. Pain Intensity: 4 5. Fall Risk: Dizziness: N Needs help standing or walking: N Fallen in the last 3 months: N Fall risk comments: 6. Patient on Blood Thinner: None 7. History of Hypertension: Y 8. Opioid Therapy greater than 6 weeks: Y Opiate Contract Signed: 12/22/16 9. Risk Assessment Tool Provided: 1-LOW 10. Functional Assessment Tool: 11. Recreational Drug Use: Never Drug Type: Tobacco Use: Never Smoker Tobacco Type: Amount or Packs/day: How Many Years: Alcohol Use: No Frequency: Quant:
--- NOTE | 2020-05-22 08:11 | HPC ---
[facility] [address] [place] [address] PAIN MANAGEMENT CONSULTATION Name: ALEX VALENTIN [id number] Admission: 05/21/20 Attend Phys: Khadijah Escobedo Discharge: Date of : 60 Report #: [id number] THIS REPORT FOR: cc: Yvan Aguirre MD, Neal A. MD Hocker, Amanda CNS ~ CC: Rolando Perkins MD DATE OF SERVICE: 05/21/2020 CHIEF COMPLAINT: Chronic low back pain, status post compression fractures. HISTORY OF PRESENT ILLNESS: This is a 59-year-old female who returns to the pain clinic today for a refill of her medications that she uses to help treat her ongoing thoracic and lumbar back pain. She has had multiple compression fractures and kyphoplasties, continues to have problems. She is not wearing a brace, which we have encouraged her to do for several months. The patient continues to be very kyphotic in her stance and does complain of most of her pain in that area. She is reporting her pain score 4/10 today, is tenderness that is aching, worse with activity and standing too long. She feels that the medication as well as sitting and cold and heat alternating to her back are beneficial. She does report that she recently had a flare of her rheumatoid arthritis and has been on a prednisone dosepak. Today, she is finishing her last pill of the medication. She denies any problems with constipation or daytime somnolence as a result of her medications. ALLERGIES: SULFA, TEMAZEPAM, COMPAZINE, NAPROXEN, METHOTREXATE, BACTRIM, CIPRO, METOPROLOL, AMOXICILLIN, METFORMIN, TRAZODONE, LEFLUNOMIDE. CURRENT LIST OF MEDICATIONS: Oxycodone 10/325, methadone 10 mg, Flexeril, Prozac, vitamin D, cranberry, Zofran, Prilosec, turmeric, biotin, zinc, vitamin B12, folic acid, fiber, Amaryl, calcium, losartan, amlodipine, alprazolam, Carafate, omeprazole, Plaquenil, Voltaren gel and pravastatin. PQRS: 1. She has arthritic changes in her back as well as rheumatoid arthritis that she is being treated for. 2. Height is 5 feet 4 inches, weight is 123, BMI is 21. 3. Vital signs 123/61, pulse is 100, respirations 16, oxygen sat is 97%. 4. Pain score is 4/10. 5. Denies dizziness, does not need help walking or standing, has not fallen in the last 3 months. 6. The patient is not on any blood thinners, but does take medicine for hypertension. Opioid therapy is greater than 6 weeks; therefore, an opioid signed contract is on the chart. Risk assessment tool is low. [place] [address] PAIN MANAGEMENT CONSULTATION Name: BARBIEALEX L Room #: REG ALIA Dominguez#: [id number] Admission: 05/21/20 Attend Phys: Khadijah Escobedo Discharge: Date of : 60 Report #: [id number] 7. Recreational drug use, she denies. She is not a smoker and does not drink alcohol. According to the prescription monitoring system, the patient is filling appropriately in a timely fashion. She is seen on a monthly basis. Her morphine mEq according to the CDC guidelines is 90. We will check a random drug screen on this patient at her next visit as it has been greater than a year. PHYSICAL EXAMINATION: GENERAL: This is alert and orientated, slightly depressed 59-year-old female who is rating her pain score 4/10 today. She is a good historian. HEENT: Normocephalic, atraumatic. She has fractured teeth. She is wearing a mask. NECK: Without adenopathy or JVD. MUSCULOSKELETAL: This is a kyphotic female in her thoracic area. She has multiple compression fractures causing significant pain and tenderness in her thoracic, lumbar region. She is deconditioned in her lower and upper extremities. She has an antalgic gait. She has numerous skin tears on her arms bilaterally that are wrapped today. IMPRESSION: 1. History of kyphoplasties at multiple levels due to compression fractures. 2. Thoracic and lumbar pain. 3. Rheumatoid arthritis with recent flare on prednisone therapy. 4. Anxiety and depression. 5. Osteoporosis. 6. Chronic low back pain status post lumbar fusion. 7. Complex medical management utilizing opioids. We reviewed the fact that opiate medications are being used to provide analgesia adequate to support activities of daily living, not attempting to achieve a specific pain score on the 0-10 Visual Analog Scale. The current opiate medications are providing sufficient analgesia to allow the patient to participate in activities of daily living. The patient is not exhibiting any aberrant behavior suggestive of drug diversion. The patient is not having any adverse reactions to medications. The patient is not suffering from daytime somnolence or mental acuity changes. The patient is managing opiate-induced constipation with appropriate eqql-dxz-xfsuvuv agents and dietary considerations. The patient was counseled on concern for caution with operating a motor vehicle while using opiate medications. PLAN: 1. We discussed treatment options with the patient today. The patient finds her methadone beneficial in helping relieve some of her pain as well as her oxycodone. We will continue these medicines for [address] Mike Perkins will send these electronically of methadone 10 mg, #30 and oxycodone [facility] [address] [place] [address] PAIN MANAGEMENT CONSULTATION Name: ALEX VALENTIN Room #: REG ALIA Angelica#: [id number] Admission: 05/21/20 Attend Phys: Khadijah Escobedo Discharge: Date of : 60 Report #: [id number] 10/325, #120. 2. The patient is not in need of Flexeril today. She is wondering about a serotonin syndrome that she has read about. The patient has not have any symptoms of this. She has recently started Prozac. I encouraged her to ask her pharmacist if baclofen or another muscle relaxer has less possible complications than Flexeril of interactions with her Prozac. The patient verbalizes understanding. 3. The patient is very stressed about her living situation with some neighbors that have become problematic with a dog as well as their living situation is not up to par as the patient would like. I encouraged her to look for another place to live. We did discuss how to downsize, spent a significant amount of time discussing her social living situation. 4. The patient seen today in collaboration with Dr. Mike Perkins. She will return in 1 month. <ELECTRONICALLY SIGNED> By: Khadijah Escobedo 05/22/20 0811 [id number] Khadijah Escobedo /chapo
== END ==
LOC: PAIN 07:04
PROVIDERS: ATTEND Clinical Nurse Specialist Adult Health
DX: M54.5 Low back pain (principal); G89.29 Other chronic pain; M54.6 Pain in thoracic spine; F41.8 Other specified anxiety disorders; M81.0 Age-related osteoporosis without current pathological fracture; Z98.1 Arthrodesis status; Z87.311 Personal history of (healed) other pathological fracture; Z88.8 Allergy status to other drugs, medicaments and biological substances; Z79.899 Other long term (current) drug therapy

== ENCOUNTER → 2020-06-18 | Outpatient (CLI) | payer OTHER, BC ==
[~2020-06-18] VITALS: Ht 162.6 cm; Wt 54.7 kg
[~2020-06-18] MED LIST changes: +METHOCARBAMOL500 M2 PO
[2020-06-18 11:09] VITALS: BP 102/70
--- NOTE | 2020-06-18 11:23 | NUR ---
Pain Clinic Assessment: 1. History of Osteoarthritis: BACK History of Rheumatoid Arthritis: YES Left Upper Extremity Right Lower Extremity Right Upper Extremity 2. Height: 5 ft. 4 in. 162.6 cm. Weight: 120.6 lb. oz. 54.704 kg. Patient's BMI: 20.7 3. Vital Signs: BP: 102/70 Pulse: 90 Resp: 16 Temp: 02 Sat: 96 ECG Mon: 4. Pain Intensity: 6 5. Fall Risk: Dizziness: N Needs help standing or walking: N Fallen in the last 3 months: N Fall risk comments: 6. Patient on Blood Thinner: None 7. History of Hypertension: Y 8. Opioid Therapy greater than 6 weeks: Y Opiate Contract Signed: 12/22/16 9. Risk Assessment Tool Provided: 1-LOW 10. Functional Assessment Tool: 11. Recreational Drug Use: Never Drug Type: Tobacco Use: Never Smoker Tobacco Type: Amount or Packs/day: How Many Years: Alcohol Use: No Frequency: Quant:
--- NOTE | 2020-06-19 10:01 | HPC ---
[facility] [place] [address] PAIN MANAGEMENT CONSULTATION Name: ALEX VALENTIN Room #: REG [facility]#: [id number] Admission: 06/18/20 Attend Phys: Khadijah Escobedo Discharge: Date of : 60 Report #: [id number] THIS REPORT FOR: cc: Yvan Aguirre MD, Neal A. MD Hocker, Amanda CNS ~ CC: Rolando Perkins MD DATE OF SERVICE: 06/18/2020 CHIEF COMPLAINT: Chronic low back pain, status post compression fractures. HISTORY OF PRESENT ILLNESS: This is a 59-year-old female who returns on her monthly visit to fill her opioid medications that we use to help treat her ongoing low back pain. She has had multiple compression fractures and continues to have pain that is problematic in her mid back and low back. Today, she is also complaining of hands and foot pain related to her rheumatoid arthritis. She is rating her pain at a 6/10. It is worse with activity and walking. She feels that the medication as well as heat, ice and sitting have been beneficial. She does report that this steroid dosepak burst that she received from her rheumatoid arthritis doctor was very beneficial last month and she is regarding that she cannot have that medicine all the time. Her pain has escalated since she has stopped that medication. She denies any constipation as a result of her opioid medication. ALLERGIES: SULFA, TEMAZEPAM, COMPAZINE, FLUOCINOLONE, NAPROXEN, METHOTREXATE, BACTRIM, CIPRO, METOPROLOL, AMOXICILLIN, METFORMIN, TRAZODONE, LEFLUNOMIDE. See medication list in computer that was recconcilled. PQRS: 1. She has arthritic changes in her back, is also being treated for rheumatoid arthritis in multiple extremities and joints. 2. Height is 5 feet 4 inches, weight is 120, BMI is 20. 3. Vital signs 102/70, pulse is 90, respirations 16, oxygen sat is 96. Pain score 6/10. 4. Fall risk. Denies dizziness, does not need help walking or standing, has not fallen in the last 3 months. The patient is not on any blood thinners, but does have a history of hypertension. 5. Opioid therapy is greater than 6 weeks; therefore, an opioid signed contract is on the chart. Risk assessment is low. Functional assessment is 29/70. 6. Recreational drug use, she denies. She is not a smoker and does not drink alcohol. According to the prescription monitoring system, the patient is filling her medications in a timely fashion. According to the CDC guidelines, her morphine milliequivalent is 90 MME. Today, we will collect a random drug screen on this [address] [address] PAIN MANAGEMENT CONSULTATION Name: ALEX VALENTIN Room #: REG ALIA Dominguez#: [id number] Admission: 06/18/20 Attend Phys: Khadijah Escobedo Discharge: Date of : 60 Report #: [id number] patient today, it is greater than one year. The patient has been in our clinic for 5-1/2 hours trying to give us a urine specimen. Finally, she was successful, so we will see the results of that in the next few days. PHYSICAL EXAMINATION: GENERAL: This is alert and orientated 59-year-old female who is slightly depressed, rating her pain score at 6/10. HEENT: Normocephalic, atraumatic. She is wearing a mask, but does remove it for water. There we can see her fractured teeth with her poor dentition. NECK: Without adenopathy or JVD. MUSCULOSKELETAL: This is a kyphotic female with pain in her thoracic area. She has multiple compression fractures and tenderness in her thoracic and lumbar region. She has an antalgic gait. She has deconditioned in both her upper and lower extremities, complains of tenderness in multiple joints from her rheumatoid arthritis. IMPRESSION: 1. History of kyphoplasties at multiple levels due to compression fractures. 2. Thoracic and lumbar pain. 3. Rheumatoid arthritis. 4. Anxiety and depression. 5. Osteoporosis. 6. Chronic low back pain, status post fusion. 7. Complex medical management utilizing opioids under written agreement. We reviewed the fact that opiate medications are being used to provide analgesia adequate to support activities of daily living, not attempting to achieve a specific pain score on the 0-10 Visual Analog Scale. The current opiate medications are providing sufficient analgesia to allow the patient to participate in activities of daily living. The patient is not exhibiting any aberrant behavior suggestive of drug diversion. The patient is not having any adverse reactions to medications. The patient is not suffering from daytime somnolence or mental acuity changes. The patient is managing opiate-induced constipation with appropriate wabg-diw-gqfcpgt agents and dietary considerations. The patient was counseled on concern for caution with operating a motor vehicle while using opiate medications. A physical exam was performed and the patient's functional status was evaluated. All patients with back pain were advised against the bed rest greater than 4 days and were advised to return to normal activities. Pain score assessment was noted and the treatment plan was reviewed with the patient. All current medications, both prescribed and OTC were reviewed and reconciled on the electronic medical record. Tobacco screening was accomplished and smoking cessation was advised when indicated. BMI was noted and diet/exercise modification was recommended for all patients following outside normal parameters. [facility] [address] [place] [address] PAIN MANAGEMENT CONSULTATION Name: ALEX VALENTIN Room #: REG Irina Dominguez#: [id number] Admission: 06/18/20 Attend Phys: Khadijah Escobedo Discharge: Date of : 60 Report #: [id number] I reviewed with the patient today their responsibilities to safeguard prescription medications, reviewed their responsibility to utilize medications only as prescribed by the physician. They are to seek and receive pain medications only from 1 physician group ( [facility]). They are to use 1 pharmacy and keep the clinic informed if they change pharmacies. Their responsibilities include making followup visits in a timely fashion and to avoid abrupt discontinuation of medication usage. Their responsibilities further include bringing their medications (bottles from the pharmacy with residual pills) to the visit for possible confirmation of pill counts and the patient understands it is their responsibility to submit to random drug screens to ensure both that the medications prescribed are present, and that no other controlled substances are present. All prescriptions provided today were generated electronically. PLAN: 1. We discussed treatment options with the patient today. The patient reports she continues to be worried about a possible serotonin syndrome that her pharmacist mentioned to her, since she does take Prozac as well as Flexeril. She has been on these medicines for quite some time with no problems, but we will offer her an alternative. I discussed this case with Dr. Perkins. We have agreed upon, Robaxin a trial of 500 mg tablets, no more than 2 tablets a day. Script will be sent for 60 tablets to her pharmacy. Again, this is a trial for 1 month. 2. We will refill her methadone 10 mg once a day as well as her Percocet , #120. These will be sent electronically by Dr. Perkins to her pharmacy. 3. We did collect a random drug screen today and the patient was seen in collaboration with Dr. Perkins who did see her as well. The patient will return in 1 month. <ELECTRONICALLY SIGNED> By: Khadijah Escobedo 06/19/20 1001 [id number] [id number] Khadijah Escobedo /nt
== END ==
LOC: PAIN 06:53
PROVIDERS: ATTEND Clinical Nurse Specialist Adult Health
DX: M54.5 Low back pain (principal); M54.6 Pain in thoracic spine; M06.9 Rheumatoid arthritis, unspecified; F41.8 Other specified anxiety disorders; M81.0 Age-related osteoporosis without current pathological fracture; F11.20 Opioid dependence, uncomplicated; Z87.81 Personal history of (healed) traumatic fracture; Z88.8 Allergy status to other drugs, medicaments and biological substances; Z79.899 Other long term (current) drug therapy

== ENCOUNTER → 2020-07-16 | Outpatient (CLI) | payer OTHER, BC ==
[~2020-07-16] VITALS: Ht 162.6 cm; Wt 53.5 kg
[~2020-07-16] MED LIST changes: +ROBAXIN 750 MG750 MG PO
[2020-07-16 10:26] VITALS: BP 125/88
--- NOTE | 2020-07-16 10:27 | NUR ---
Pain Clinic Assessment: 1. History of Osteoarthritis: BACK History of Rheumatoid Arthritis: YES Left Upper Extremity Right Lower Extremity Right Upper Extremity 2. Height: 5 ft. 4 in. 162.6 cm. Weight: 118.0 lb. oz. 53.524 kg. Patient's BMI: 20.2 3. Vital Signs: BP: 125/88 Pulse: 108 Resp: 16 Temp: 02 Sat: 97 ECG Mon: 4. Pain Intensity: 6 5. Fall Risk: Dizziness: N Needs help standing or walking: N Fallen in the last 3 months: N Fall risk comments: 6. Patient on Blood Thinner: None 7. History of Hypertension: Y 8. Opioid Therapy greater than 6 weeks: Y Opiate Contract Signed: 12/22/16 9. Risk Assessment Tool Provided: 1-LOW 10. Functional Assessment Tool: 11. Recreational Drug Use: Never Drug Type: Tobacco Use: Never Smoker Tobacco Type: Amount or Packs/day: How Many Years: Alcohol Use: No Frequency: Quant:
--- NOTE | 2020-07-16 15:12 | HPC ---
[facility] [address] [place] [address] PAIN MANAGEMENT CONSULTATION Name: ALEX VALENTIN Room #: REG [facility].#: [id number] Admission: 07/16/20 Attend Phys: Khadijah Escobedo Discharge: Date of : 60 Report #: [id number] THIS REPORT FOR: cc: Yvan Aguirre MD, Neal A. MD Hocker, Amanda CNS ~ CC: Rolando Perkins MD DATE OF SERVICE: 07/16/2020 CHIEF COMPLAINT: Chronic low back pain. Post-compression fractures. HISTORY OF PRESENT ILLNESS: This is a 59-year-old female, who returns to the pain clinic today for her monthly refill of her opioid medications. Today, she is reporting her pain score a 6/10, which is a fairly average pain score for this lady. She states most of her pain is located in her mid-thoracic region, now she does have some ongoing low back pain as well. She reports it is a chronic constant ache that is worse with any activity and prolonged walking. She is not wearing a back brace in her thoracic region today. She states the medication as well as heat or ice have been beneficial. She feels that the Robaxin medication that we rotate her from Flexeril due to possible serotonin uptake has been beneficial, though she is stating she takes one and half tablets twice a day and that was comparative to her Flexeril, so she is requesting a slight increase in that medication. ALLERGIES: SULFA, TEMAZEPAM, COMPAZINE, FLUOCINOLONE, NAPROXEN, METHOTREXATE, BACTRIM, CIPRO, METOPROLOL, AMOXICILLIN, METFORMIN, TRAZODONE, AND LEFLUNOMIDE. CURRENT LIST OF MEDICATIONS: Methocarbamol 500 mg, oxycodone 10/325 q.i.d. p.r.n., methadone 10 mg at noon, Prozac, vitamin D, cranberry, Zofran, turmeric, biotin, zinc, vitamin B, multivitamin, Calcitrate, losartan, amlodipine, alprazolam, Carafate, Prilosec, Plaquenil, Voltaren gel and pravastatin. PQRS: 1. She has a history of osteoarthritis and rheumatoid arthritis that she has been treated for. 2. Height is 5 feet 4 inches, weight is 118, BMI is 20. Vital signs 125/88, pulse is 108, respirations 16, oxygen sat is 97%. Pain score is 6/10. 3. Fall risk. Denies dizziness. Does not need help walking or standing. Has not fallen in the last 3 months. The patient is not on any blood thinners, but does take medicine for hypertension. Opioid therapy is greater than 6 weeks; therefore, an opioid signed contract is on the chart. Risk assessment is low. Functional assessment is 39/70. 4. Recreational drug use, she denies. She is not a smoker and does not drink alcohol. [address] [address] PAIN MANAGEMENT CONSULTATION Name: ALEX VALENTIN Room #: REG ALIA Dominguez#: [id number] Admission: 07/16/20 Attend Phys: Khadijah Escobedo Discharge: Date of : 60 Report #: [id number] According to the prescription monitoring system, the patient is filling appropriately in a timely fashion. She is due to fill her meds today. Her morphine mEq is 90 MME. There is a recent drug screen on her chart from her last office visit as well as an opioid signed contract. PHYSICAL EXAMINATION: GENERAL: This is alert and orientated, slightly depressed 59-year-old female, who is a good historian, placing her current pain score at 6/10. HEENT: Normocephalic, atraumatic. Extraocular eye muscles are intact. She is wearing a mask. NECK: Without adenopathy or JVD. MUSCULOSKELETAL: This is a kyphotic female with tenderness in her thoracic and lumbar regions due to multiple compression fractures. She has an antalgic gait. She has numerous skin tears on her upper and lower extremities. She is deconditioned in her upper and lower extremities as well. Pain in multiple joints due to her arthritis. IMPRESSION: 1. History of kyphoplasties at multiple levels due to compression fractures. 2. Thoracic and lumbar pain. 3. Rheumatoid arthritis. 4. Osteoporosis. 5. Chronic low back pain, status post fusion. 6. Anxiety and depression. 7. Complex medical management under terms of written opioid agreement. We reviewed the fact that opiate medications are being used to provide analgesia adequate to support activities of daily living, not attempting to achieve a specific pain score on the 0-10 Visual Analog Scale. The current opiate medications are providing sufficient analgesia to allow the patient to participate in activities of daily living. The patient is not exhibiting any aberrant behavior suggestive of drug diversion. The patient is not having any adverse reactions to medications. The patient is not suffering from daytime somnolence or mental acuity changes. The patient is managing opiate-induced constipation with appropriate brqn-qrt-yegwtbj agents and dietary considerations. The patient was counseled on concern for caution with operating a motor vehicle while using opiate medications. PLAN: 1. We discussed treatment options with the patient today. The patient finds most of her medications beneficial. She thinks the Robaxin at 750 mg is more beneficial than the 500 mg and finds this is comparative to her Flexeril, which she felt was causing a possible serotonin syndrome, so this rotation has been beneficial. Today, we will release that medication to her [facility] for Robaxin 750 mg b.i.d., explaining to the patient she is not to take this on a daily basis, only as needed for muscle spasms. [facility] [address] [place] [address] PAIN MANAGEMENT CONSULTATION Name: ALEX VALENTIN Room #: REG ALIA Dominguez#: [id number] Admission: 07/16/20 Attend Phys: Khadijah Escobedo Discharge: Date of : 60 Report #: [id number] 2. We will refill her methadone 10 mg, #30, as well as her Percocet 10/325, #120. 3. Dr. Mike Perkins will send these electronically to her pharmacy. He collaborated care with me today. 4. The patient states she is having an EGD for dilatation. She has been having difficulty eating and this will be scheduled next week. The patient is hopeful that this will help decrease some of her eating difficulties and some pain she experiences in her chest. 5. The patient will return in 1 month. <ELECTRONICALLY SIGNED> By: Khadijah Escobedo 07/16/20 1512 [id number] Khadijah Escobedo /nt
== END ==
LOC: PAIN 06:52
PROVIDERS: ATTEND Clinical Nurse Specialist Adult Health
DX: M54.5 Low back pain (principal); G89.29 Other chronic pain; M54.6 Pain in thoracic spine; M81.0 Age-related osteoporosis without current pathological fracture; F11.20 Opioid dependence, uncomplicated; F41.8 Other specified anxiety disorders; M06.9 Rheumatoid arthritis, unspecified; Z98.1 Arthrodesis status; Z87.311 Personal history of (healed) other pathological fracture; Z88.8 Allergy status to other drugs, medicaments and biological substances; Z79.899 Other long term (current) drug therapy

== ENCOUNTER → 2020-09-12 | Outpatient (CLI) | payer OTHER, BC ==
[~2020-09-12] VITALS: Ht 162.6 cm; Wt 56.0 kg
--- NOTE | ~2020-09-12 | HPC ---
[facility] [place] [address] PAIN MANAGEMENT CONSULTATION Name: ALEX VALENTIN Room #: REG [facility]#: [id number] Admission: 09/12/20 Attend Phys: Khadijah Escobedo Discharge: Date of : 60 Report #: [id number] THIS REPORT FOR: cc: Yvan Aguirre MD, Neal A. MD Hocker,Khadijah MADSEN ~ CC: Khadijah Aguirre DATE OF SERVICE: 09/12/2020 CHIEF COMPLAINT: Chronic low back pain, post-compression fractures. HISTORY OF PRESENT ILLNESS: This is a 60-year-old female who is well known to the pain clinic who returns today for a refill of her opioid medications. Today, she is reporting a pain score that varies from 3-7 depending on the time of day. She states that her pain is worse upon arising in the morning, but does take her short-acting oxycodone and finds that beneficial. Today, she is reporting most of her pain is located in her mid to low back as well as her hands and right knee. She believes her knee is flared up and it has increasing pain with ambulation and any weightbearing activities. She reports using a cane recently when she is out and about. She reports that her orthopedic had given her injections in the past, but it has been quite a while since any injections have been performed there. She believes her medication as well as wearing her back brace and heat and ice have been beneficial in helping reduce her pain. She denies any problems with constipation as a result of her medication, though at times she does feel overmedicated, but this is not on a daily basis. ALLERGIES: SULFA, TEMAZEPAM, COMPAZINE, FLUOCINOLONE, NAPROXEN, METHOTREXATE, BACTRIM, CIPRO, METOPROLOL, AMOXICILLIN, METFORMIN, TRAZODONE, LEFLUNOMIDE. CURRENT LIST OF MEDICATIONS: Oxycodone 10/325, Robaxin, methadone 10 mg, Prozac, vitamin D, cranberry, Zofran, turmeric, biotin, zinc, vitamin B12, multivitamin, folic acid, glyburide, Caltrate, losartan, amlodipine, alprazolam, Carafate, Prilosec, Plaquenil, Voltaren gel and pravastatin. PQRS: 1. She has a history of osteoarthritis in her back, knees and is also being treated for rheumatoid arthritis. 2. Height is 5 feet 4 inches, weight is 123, BMI is 21. 3. Vital signs 123/65, pulse is 89, respirations 14, oxygen sat is 96. 4. Pain score 3-7. 5. Denies dizziness, does not need assistance with walking, though does occasionally use a cane, has not fallen in the last 3 months. 6. The patient is not on any blood thinners, but does take medicine for [address] [address] PAIN MANAGEMENT CONSULTATION Name: ALEX VALENTIN Room #: REG [facility]#: [id number] Admission: 09/12/20 Attend Phys: Khadijah Escobedo Discharge: Date of : 60 Report #: [id number] hypertension. Opioid therapy is greater than 6 weeks; therefore, an opioid signed contract is on the chart. Risk assessment is low. Functional assessment is 29/70. 7. Recreational drug use, she denies. She is a former smoker and does not drink alcohol. According to the prescription monitoring system, the patient is filling appropriately in a timely fashion. She does take a benzodiazepine that has been taking it concurrently with her opioids for a long period of time. Her morphine mEq is 90 MME and she is seen on a monthly basis. PHYSICAL EXAMINATION: GENERAL: This is alert and orientated, slightly depressed 60-year-old female who appears her stated age, placing her current pain score from 3-7. HEENT: Normocephalic, atraumatic. Extraocular eye muscles are intact. She is wearing a mask. She does have numerous teeth that are missing. MUSCULOSKELETAL: Pain and discomfort in her lumbosacral region that does radiate into her thoracic area and upper buttocks, pain and tenderness in her right knee today with no edema noted. Pain is increased with standing. She has an antalgic gait. She has numerous nodes in her hands and feet from her rheumatoid arthritis. Nodules are Heberden's nodes. IMPRESSION: 1. History of kyphoplasties with multiple level compression fractures. 2. Thoracic and lumbar pain. 3. Rheumatoid arthritis. 4. Osteoporosis. 5. Chronic low back pain, status post fusion. 6. Osteoarthritis and right knee pain. 7. Anxiety and depression. 8. Complex medical management under terms of written opioid agreement. We reviewed the fact that opiate medications are being used to provide analgesia adequate to support activities of daily living, not attempting to achieve a specific pain score on the 0-10 Visual Analog Scale. The current opiate medications are providing sufficient analgesia to allow the patient to participate in activities of daily living. The patient is not exhibiting any aberrant behavior suggestive of drug diversion. The patient is not having any adverse reactions to medications. The patient is not suffering from daytime somnolence or mental acuity changes. The patient is managing opiate-induced constipation with appropriate trld-wad-jfpxbjq agents and dietary considerations. The patient was counseled on concern for caution with operating a motor vehicle while using opiate medications. A physical exam was performed and the patient's functional status was evaluated. All patients with back pain were advised against the bed rest greater than 4 [facility] [address] [place] [address] PAIN MANAGEMENT CONSULTATION Name: ALEX VALENTIN Room #: REG [facility].#: [id number] Admission: 09/12/20 Attend Phys: Khadijah Escobedo Discharge: Date of : 60 Report #: [id number] days and were advised to return to normal activities. Pain score assessment was noted and the treatment plan was reviewed with the patient. All current medications, both prescribed and OTC were reviewed and reconciled on the electronic medical record. Tobacco screening was accomplished and smoking cessation was advised when indicated. BMI was noted and diet/exercise modification was recommended for all patients following outside normal parameters. I reviewed with the patient today their responsibilities to safeguard prescription medications, reviewed their responsibility to utilize medications only as prescribed by the physician. They are to seek and receive pain medications only from 1 physician group ( [facility]). They are to use 1 pharmacy and keep the clinic informed if they change pharmacies. Their responsibilities include making followup visits in a timely fashion and to avoid abrupt discontinuation of medication usage. Their responsibilities further include bringing their medications (bottles from the pharmacy with residual pills) to the visit for possible confirmation of pill counts and the patient understands it is their responsibility to submit to random drug screens to ensure both that the medications prescribed are present, and that no other controlled substances are present. All prescriptions provided today were generated electronically. PLAN: 1. We discussed treatment options with the patient today. She has been complaining of increasing right knee pain. She has had previous steroid injections from her orthopedic physician. I did explain that Dr. Perkins could perform this injection if she would like and also discussed Synvisc injections in her right knee. The patient will consider having Dr. Perkins perform this injection and will make an appointment at a later date. 2. We will continue her methadone 10 mg once a day and oxycodone 10/325 four times a day for [address] Perkins will send this electronically. 3. The patient does report at times she feels overmedicated. I did discuss the times of her medication administration and encouraged her to separate her essentially active medications out throughout the day. 4. The patient does state that she has decreased her smoking. It has gotten too expensive. We did discuss how that affects pain as well as her oral mucosa, which she does have ongoing dental issues. The patient has not completely stopped, but has decreased significantly since May. The patient is seen today in collaboration with Dr. Perkins. She will return in 1 month. By: [id number] Khadijah Escobedo /chapo
[2020-09-12 09:46] VITALS: BP 123/65
--- NOTE | 2020-09-12 10:03 | NUR ---
Pain Clinic Assessment: 1. History of Osteoarthritis: BACK History of Rheumatoid Arthritis: YES Left Upper Extremity Right Lower Extremity Right Upper Extremity 2. Height: 5 ft. 4 in. 162.6 cm. Weight: 123.4 lb. oz. 55.974 kg. Patient's BMI: 21.2 3. Vital Signs: BP: 123/65 Pulse: 89 Resp: 14 Temp: 02 Sat: 96 ECG Mon: 4. Pain Intensity: 3 to 7 5. Fall Risk: Dizziness: N Needs help standing or walking: N Fallen in the last 3 months: N Fall risk comments: 6. Patient on Blood Thinner: None 7. History of Hypertension: Y 8. Opioid Therapy greater than 6 weeks: Y Opiate Contract Signed: 12/22/16 9. Risk Assessment Tool Provided: 1-LOW 10. Functional Assessment Tool: 11. Recreational Drug Use: Never Drug Type: Tobacco Use: Former Smoker Tobacco Type: Amount or Packs/day: How Many Years: Alcohol Use: No Frequency: Quant:
== END ==
LOC: PAIN 08-13 06:48
PROVIDERS: ATTEND Clinical Nurse Specialist Adult Health
DX: M54.5 Low back pain (principal); G89.29 Other chronic pain; M06.9 Rheumatoid arthritis, unspecified; F41.8 Other specified anxiety disorders; M17.11 Unilateral primary osteoarthritis, right knee; F11.20 Opioid dependence, uncomplicated; Z87.311 Personal history of (healed) other pathological fracture; Z88.8 Allergy status to other drugs, medicaments and biological substances; Z79.899 Other long term (current) drug therapy

== ENCOUNTER → 2020-10-10 | Outpatient (CLI) | payer OTHER, BC ==
[~2020-10-10] VITALS: Ht 162.6 cm; Wt 51.2 kg
[2020-10-10 10:54] VITALS: BP 102/65
--- NOTE | 2020-10-10 11:27 | NUR ---
Pain Clinic Assessment: 1. History of Osteoarthritis: BACK History of Rheumatoid Arthritis: YES Left Upper Extremity Right Lower Extremity Right Upper Extremity 2. Height: 5 ft. 4 in. 162.6 cm. Weight: 112.8 lb. oz. 51.166 kg. Patient's BMI: 19.4 3. Vital Signs: BP: 102/65 Pulse: 90 Resp: 16 Temp: 02 Sat: 97 ECG Mon: 4. Pain Intensity: 6 5. Fall Risk: Dizziness: N Needs help standing or walking: N Fallen in the last 3 months: N Fall risk comments: 6. Patient on Blood Thinner: None 7. History of Hypertension: Y 8. Opioid Therapy greater than 6 weeks: Y Opiate Contract Signed: 12/22/16 9. Risk Assessment Tool Provided: 1-LOW 10. Functional Assessment Tool: 11. Recreational Drug Use: Never Drug Type: Tobacco Use: Former Smoker Tobacco Type: Amount or Packs/day: How Many Years: Alcohol Use: No Frequency: Quant:
--- NOTE | 2020-10-13 09:08 | HPC ---
[facility] [address] [place] [address] PAIN MANAGEMENT CONSULTATION Name: ALEX VALENTIN Room #: REG [facility]#: [id number] Admission: 10/10/20 Attend Phys: Khadijah Escobedo Discharge: Date of : 60 Report #: [id number] THIS REPORT FOR: cc: Yvan Aguirre MD, Neal A. MD Hocker,Khadijah MADSEN ~ DATE OF SERVICE: 10/10/2020 CHIEF COMPLAINT: Chronic low back pain, post-compression fractures. HISTORY OF PRESENT ILLNESS: This is a 60-year-old female who is well known to the pain clinic. She does return today for refill of her medications that she uses to help treat her ongoing mid and low back pain. She does suffer from arthritis as well and has many joints that are affected and cause discomfort. Today the patient reports a pain score of 6/10, most significantly in her low back today. It is an aching, stabbing sensation that is worse with any activity and prolonged standing. She reports her medication as well as heat and ice are beneficial. She does try to wear a back brace occasionally that she has lost significant weight; therefore, her brace does not fit and she has not replaced it. The patient does continue to have ongoing other medical issues. She does have a large hiatal hernia that does need to be repaired, which does affect her eating as well as several oral issues. She was in the process of trying to have dentures placed and has several teeth removed. Others are broken, so therefore that does make eating difficult. Her weight does vary ranging from 112 to 123. The patient reports she tries to eat small meals of Ensure, Boost or protein bars, but it is very difficult with chewing and she is not hungry. ALLERGIES: SULFA, TEMAZEPAM, COMPAZINE, NAPROXEN, METHOTREXATE, BACTRIM, CIPRO, METOPROLOL, AMOXICILLIN, METFORMIN, TRAZODONE, LEFLUNOMIDE AND FLUOCINOLONE. CURRENT LIST OF MEDICATIONS: Oxycodone 10/325 p.r.n., methadone, Robaxin, Prozac, vitamin D3, cranberry, turmeric, biotin, zinc, vitamin B12, multivitamin, folic acid, fiber, Amaryl, vitamin D3, losartan, amlodipine, alprazolam, Carafate, Prilosec, Plaquenil, diclofenac gel and pravastatin. PQRS: 1. She has a history of arthritic changes in her back and knees and is also being treated for her rheumatoid arthritis. 2. Height is 5 feet 4 inches, weight is 112 today. This is down from her last visit. Based on July's weight, only down 4 pounds. Her BMI is 19. 3. Vital signs: Blood pressure 102/65, pulse is 90, respirations 16, oxygen sat is 97%. 4. Pain score is 6/10. 5. Denies dizziness. Does not need help walking or [place] [address] PAIN MANAGEMENT CONSULTATION Name: ALEX VALENTIN Room #: [facility]#: [id number] Admission: 10/10/20 Attend Phys: Khadijah Escobedo Discharge: Date of : 60 Report #: [id number] in the last 3 months. 6. The patient is not on any blood thinners, but does take medicine for hypertension. 7. Opioid therapy is greater than 6 weeks; therefore, an opioid signed contract is on the chart. Risk assessment is low. Functional assessment is 29/70. 8. Recreational drug use, she denies. She is not a smoker and does not drink alcohol. She is a current smoker, trying to decrease. According to the prescription monitoring system, the patient is filling appropriately. She is due to fill her medications today. Her morphine mEq is 90 MME per day. PHYSICAL EXAMINATION: GENERAL: This is alert and orientated, slightly depressed 60-year-old female who appears older than her stated age, placing her current pain score at 6/10. HEENT: Normocephalic, atraumatic. Extraocular eye muscles are intact. She is wearing a mask. She does have numerous teeth that are missing or broken and fractured from poor dentition. NECK: Without adenopathy or JVD. MUSCULOSKELETAL: The patient has kyphosis in the thoracic area. She is not wearing a brace. She walks with an antalgic gait. She has discomfort in her mid and low thoracic and lumbosacral region that does radiate into her buttocks. Pain is increased with ambulation. She has an antalgic gait. She has numerous Heberden's nodes in her hands. IMPRESSION: 1. History of kyphoplasties with multiple level compression fractures. 2. Thoracic and lumbar pain. 3. Rheumatoid arthritis. 4. Osteoporosis. 5. Chronic low back pain, status post fusion. 6. Osteoarthritis involving multiple joints. 7. Anxiety and depression. 8. Complex medication management under terms of written opioid agreement. We reviewed the fact that opiate medications are being used to provide analgesia adequate to support activities of daily living, not attempting to achieve a specific pain score on the 0-10 Visual Analog Scale. The current opiate medications are providing sufficient analgesia to allow the patient to participate in activities of daily living. The patient is not exhibiting any aberrant behavior suggestive of drug diversion. The patient is not having any adverse reactions to medications. The patient is not suffering from daytime somnolence or mental acuity changes. The patient is managing opiate-induced constipation with appropriate keoq-wmj-ytsmtog agents and dietary considerations. The patient was counseled on concern for caution with operating a motor vehicle while using opiate medications. [facility] [address] [place] [address] PAIN MANAGEMENT CONSULTATION Name: ALEX VALENTIN Room #: REG [facility]#: [id number] Admission: 10/10/20 Attend Phys: Khadijah Escobedo Discharge: Date of : 60 Report #: [id number] A physical exam was performed and the patient's functional status was evaluated. All patients with back pain were advised against the bed rest greater than 4 days and were advised to return to normal activities. Pain score assessment was noted and the treatment plan was reviewed with the patient. All current medications, both prescribed and OTC were reviewed and reconciled on the electronic medical record. Tobacco screening was accomplished and smoking cessation was advised when indicated. BMI was noted and diet/exercise modification was recommended for all patients following outside normal parameters. I reviewed with the patient today their responsibilities to safeguard prescription medications, reviewed their responsibility to utilize medications only as prescribed by the physician. They are to seek and receive pain medications only from 1 physician group ( [facility]). They are to use 1 pharmacy and keep the clinic informed if they change pharmacies. Their responsibilities include making followup visits in a timely fashion and to avoid abrupt discontinuation of medication usage. Their responsibilities further include bringing their medications (bottles from the pharmacy with residual pills) to the visit for possible confirmation of pill counts and the patient understands it is their responsibility to submit to random drug screens to ensure both that the medications prescribed are present, and that no other controlled substances are present. All prescriptions provided today were generated electronically. PLAN: 1. We discussed treatment options with the patient today. The patient has finding the Robaxin not as beneficial as her previous cyclobenzaprine that she knows she is unable to take that medication due to interactions with her other medications. I have encouraged her to ask her pharmacy about alternatives that will not interact with her current medications and we would gladly prescribe a different muscle relaxant. I did have her question them about tizanidine. If that is appropriate, we will send a prescription for that medicine. 2. We will continue her on her oxycodone and methadone, sending 1 month prescription electronically by Dr. Perkins today. The patient is seen on a monthly basis. 3. We again discussed her weight. It does fluctuate from 123 to 112 and is low today. Encouraging her to eat small meals of high protein and gaining some weight. Also, we discussed having her hiatal hernia fixed and her dentures when she is able to afford this and I believe that will impact her weight greatly when this surgery has been performed. 4. The patient will return in [address] [address] PAIN MANAGEMENT CONSULTATION Name: ALEX VALENTIN Room #: REG [facility]ina [facility]#: [id number] Admission: 10/10/20 Attend Phys: Khadijah Escobedo Discharge: Date of : 60 Report #: [id number] The patient is seen today in collaboration with Dr. Perkins. <ELECTRONICALLY SIGNED> By: Khadijah Escobedo 10/13/20 [id number] Khadijah Escobedo /nt
== END ==
LOC: PAIN 06:50
PROVIDERS: ATTEND Clinical Nurse Specialist Adult Health
DX: M06.9 Rheumatoid arthritis, unspecified (principal); M54.6 Pain in thoracic spine; M19.90 Unspecified osteoarthritis, unspecified site; G89.29 Other chronic pain; F32.9 Major depressive disorder, single episode, unspecified; F41.9 Anxiety disorder, unspecified; Z79.891 Long term (current) use of opiate analgesic

== ENCOUNTER → 2020-11-12 | Outpatient (CLI) | payer OTHER, BC ==
[~2020-11-12] VITALS: Ht 162.6 cm; Wt 54.0 kg
[~2020-11-12] MED LIST changes: +TIZANIDINE HCL4 M2 PO
[2020-11-12 13:56] VITALS: BP 112/70
--- NOTE | 2020-11-12 14:11 | NUR ---
Pain Clinic Assessment: 1. History of Osteoarthritis: BACK History of Rheumatoid Arthritis: YES Left Upper Extremity Right Lower Extremity Right Upper Extremity 2. Height: 5 ft. 4 in. 162.6 cm. Weight: 119.0 lb. oz. 53.978 kg. Patient's BMI: 20.4 3. Vital Signs: BP: 112/70 Pulse: 84 Resp: 14 Temp: 02 Sat: 97 ECG Mon: 4. Pain Intensity: 7 5. Fall Risk: Dizziness: N Needs help standing or walking: N Fallen in the last 3 months: N Fall risk comments: 6. Patient on Blood Thinner: None 7. History of Hypertension: Y 8. Opioid Therapy greater than 6 weeks: Y Opiate Contract Signed: 12/22/16 9. Risk Assessment Tool Provided: 2-LOW 10. Functional Assessment Tool: 11. Recreational Drug Use: Never Drug Type: Tobacco Use: Former Smoker Tobacco Type: Amount or Packs/day: How Many Years: Alcohol Use: No Frequency: Quant:
== END ==
LOC: PAIN 06:58
PROVIDERS: ATTEND Anesthesiology Pain Medicine
DX: M54.5 Low back pain (principal); M54.6 Pain in thoracic spine; M06.9 Rheumatoid arthritis, unspecified; G89.29 Other chronic pain; M81.0 Age-related osteoporosis without current pathological fracture; F41.8 Other specified anxiety disorders; F11.20 Opioid dependence, uncomplicated; Z87.891 Personal history of nicotine dependence

== ENCOUNTER → 2020-12-10 | Outpatient (CLI) | payer OTHER, BC ==
[~2020-12-10] VITALS: Ht 162.6 cm; Wt 54.2 kg
[2020-12-10 10:30] VITALS: BP 129/76
--- NOTE | 2020-12-10 10:42 | NUR ---
Pain Clinic Assessment: 1. History of Osteoarthritis: BACK History of Rheumatoid Arthritis: YES Left Upper Extremity Right Lower Extremity Right Upper Extremity 2. Height: 5 ft. 4 in. 162.6 cm. Weight: 119.6 lb. oz. 54.250 kg. Patient's BMI: 20.5 3. Vital Signs: BP: 129/76 Pulse: 82 Resp: 14 Temp: 02 Sat: 96 ECG Mon: 4. Pain Intensity: 7 5. Fall Risk: Dizziness: N Needs help standing or walking: N Fallen in the last 3 months: N Fall risk comments: 6. Patient on Blood Thinner: None 7. History of Hypertension: Y 8. Opioid Therapy greater than 6 weeks: Y Opiate Contract Signed: 12/22/16 9. Risk Assessment Tool Provided: 2-LOW 10. Functional Assessment Tool: 11. Recreational Drug Use: Never Drug Type: Tobacco Use: Former Smoker Tobacco Type: Amount or Packs/day: How Many Years: Alcohol Use: No Frequency: Quant:
--- NOTE | 2020-12-11 10:38 | HPC ---
[facility] [address] [place] [address] PAIN MANAGEMENT CONSULTATION Name: ALEX VALENTIN Room #: REG [facility].#: [id number] Admission: 12/10/20 Attend Phys: Khadijah Escobedo Discharge: Date of : 60 Report #: [id number] THIS REPORT FOR: cc: Yvan Aguirre MD, Neal A. MD Hocker,Khadijah MADSEN ~ DATE OF SERVICE: 12/10/2020 CHIEF COMPLAINT: Chronic low back pain, post-compression fractures. HISTORY OF PRESENT ILLNESS: As you know, this is a 60-year-old female who is a long-term patient of the pain clinic. She continues to have chronic pain in her low back. She has had multiple compression fractures and today is complaining of pain of 7/10. She reports she is having a flare of her rheumatoid arthritis and her hands have been very problematic as well. She believes the flare may be due to the cold weather. She does have ongoing knee pain that she utilizes her methadone and oxycodone for as well. She reports her pain as an aching, constant pain, worse with any activity, walking and of course the cold weather. Overall, she believes the medications have been beneficial, enable her to be as active as possible. She denies any significant constipation today as long as she takes opyz-men-wribvja medications. ALLERGIES: SULFA, TEMAZEPAM, COMPAZINE, ____, NAPROXEN, METHOTREXATE, BACTRIM, CIPRO, METOPROLOL, AMOXICILLIN, METFORMIN, TRAZODONE, LEFLUNOMIDE. CURRENT LIST OF MEDICATIONS: Pravastatin, tizanidine, oxycodone 10/325, methadone 10 mg daily, Prozac, vitamin D, cranberry, Zofran, turmeric, biotin, zinc, vitamin B12, multivitamin, folic acid, fiber, Amaryl, Caltrate, losartan, amlodipine, alprazolam, Carafate, omeprazole, Plaquenil, and Voltaren gel. PQRS: 1. She has a history of osteoarthritic changes in her back and also being treated for rheumatoid arthritis in multiple joints. 2. Height is 5 feet 4 inches, weight is 119, BMI is 20.5. 3. Vital signs 129/76, pulse is 82, respirations 14, oxygen sat is 96%. 4. Pain score is 7/10. 5. Denies dizziness, does not need help walking. Does use a cane occasionally, has not fallen in the last 3 months. 6. The patient is not on any blood thinners, but does take medicine for hypertension. Her opioid therapy is greater than 6 weeks; therefore, an opioid signed contract is on the chart. Risk assessment is low. Functional assessment is 50/70. 7. Recreational drug use, she denies. She is a former smoker and does not drink alcohol. According to the prescription monitoring system, the patient is filling [address] [address] PAIN MANAGEMENT CONSULTATION Name: ALEX VALENTIN Room #: REG ALIA Dominguez#: [id number] Admission: 12/10/20 Attend Phys: Khadijah Escobedo Discharge: Date of : 60 Report #: [id number] appropriately in a timely fashion. Her morphine milliequivalent is 90 MME per day. There is a drug screen on the chart that is appropriate for her opioid medications. PHYSICAL EXAMINATION: GENERAL: This is a well-developed, well-nourished, alert and orientated 60-year-old female who appears her stated age, placing her current pain score today at 6/10. HEENT: Normocephalic, atraumatic. Extraocular eye muscles are intact. She has numerous teeth that have been broken off, but she is wearing a mask, denies tenderness today. NECK: Without adenopathy or JVD. MUSCULOSKELETAL: The patient is very kyphotic. No scoliosis. Her upper and lower extremity strength is symmetrical at 5/5. She does have tenderness in her lumbar region as well as tenderness in her knees and hands today from her rheumatoid arthritis. IMPRESSION: 1. History of kyphosis and multiple kyphoplasties. 2. Thoracic and lumbar pain. 3. Rheumatoid arthritis. 4. Osteoporosis. 5. Osteoarthritis involving multiple joints. 6. Chronic low back pain, status post fusion. 7. Anxiety and depression. 8. Complex medical management under terms of written opioid agreement. We reviewed the fact that opiate medications are being used to provide analgesia adequate to support activities of daily living, not attempting to achieve a specific pain score on the 0-10 Visual Analog Scale. The current opiate medications are providing sufficient analgesia to allow the patient to participate in activities of daily living. The patient is not exhibiting any aberrant behavior suggestive of drug diversion. The patient is not having any adverse reactions to medications. The patient is not suffering from daytime somnolence or mental acuity changes. The patient is managing opiate-induced constipation with appropriate khwh-slk-rqkgpdd agents and dietary considerations. The patient was counseled on concern for caution with operating a motor vehicle while using opiate medications. PLAN: 1. We discussed treatment options with the patient today. She would like to continue on her methadone 10 mg at noon and her oxycodone 10/325 up to 4 tablets a day. This medication will be sent electronically by Dr. Perkins to her pharmacy for 1 month. 2. We did discuss her muscle relaxant. She does utilize the tizanidine 4 mg twice a day. She states at times it does make her slightly drowsy. I [facility] [address] [place] [address] PAIN MANAGEMENT CONSULTATION Name: ALEX VALENTIN Room #: REG [facility].#: [id number] Admission: 12/10/20 Attend Phys: Khadijah Escobedo Discharge: Date of : 60 Report #: [id number] encouraged her to split the dose if this does happen, but she does find this muscle relaxant more beneficial than the Robaxin that she was on previously. Scripts will be sent electronically for refills of this medication. 3. The patient is having a rheumatologic flare in her hands. She is currently on a Medrol Dosepak. She states that it is not helping. I reminded her that we are having significantly cold weather that does impact all of arthritic changes. The patient would like to take another steroid Dosepak. I advised her against that due to her osteoporotic issues, but to contact a rheumatoid doctor Tuesday if she has not had any relief. 4. The patient is seen in collaboration with Dr. Perkins. She will return in 1 month. <ELECTRONICALLY SIGNED> By: Khadijah Escobedo 12/11/20 1038 [id number] Khadijah Escobedo /chapo
== END ==
LOC: PAIN 06:50
PROVIDERS: ATTEND Clinical Nurse Specialist Adult Health
DX: M54.5 Low back pain (principal); G89.29 Other chronic pain; M06.9 Rheumatoid arthritis, unspecified; M81.0 Age-related osteoporosis without current pathological fracture; M25.50 Pain in unspecified joint; F41.8 Other specified anxiety disorders; F11.20 Opioid dependence, uncomplicated; M96.1 Postlaminectomy syndrome, not elsewhere classified; Z88.8 Allergy status to other drugs, medicaments and biological substances; Z79.899 Other long term (current) drug therapy

== ENCOUNTER → 2021-01-07 | Outpatient (CLI) | payer OTHER, BC ==
[~2021-01-07] VITALS: Ht 162.6 cm; Wt 53.7 kg
[2021-01-07 13:09] VITALS: BP 132/72
--- NOTE | 2021-01-07 13:22 | NUR ---
Pain Clinic Assessment: 1. History of Osteoarthritis: BACK History of Rheumatoid Arthritis: YES Left Upper Extremity Right Lower Extremity Right Upper Extremity 2. Height: 5 ft. 4 in. 162.6 cm. Weight: 118.4 lb. oz. 53.706 kg. Patient's BMI: 20.3 3. Vital Signs: BP: 132/72 Pulse: 100 Resp: 16 Temp: 02 Sat: 100 ECG Mon: 4. Pain Intensity: 7 5. Fall Risk: Dizziness: Y Needs help standing or walking: N Fallen in the last 3 months: N Fall risk comments: 6. Patient on Blood Thinner: None 7. History of Hypertension: Y 8. Opioid Therapy greater than 6 weeks: Y Opiate Contract Signed: 12/22/16 9. Risk Assessment Tool Provided: 2-LOW 10. Functional Assessment Tool: 11. Recreational Drug Use: Never Drug Type: Tobacco Use: Former Smoker Tobacco Type: Amount or Packs/day: How Many Years: Alcohol Use: No Frequency: Quant:
--- NOTE | 2021-01-08 07:13 | HPC ---
[facility] [address] [place] [address] PAIN MANAGEMENT CONSULTATION Name: ALEX VALENTIN [facility] [id number] Admission: 01/07/21 Attend Phys: Khadijah Escobedo Discharge: Date of : 60 Report #: [id number] THIS REPORT FOR: cc: Yvan Aguirre MD, Neal A. MD Hocker,Khadijah MADSEN ~ DATE OF SERVICE: 01/07/2021 CHIEF COMPLAINT: Chronic low back pain, post-compression fractures. HISTORY OF PRESENT ILLNESS: This is a 60-year-old female who returns to the pain clinic today for renewal of her medications. Today, she is reporting her pain is 7/10, most significantly in her mid to low back, though she is having increased arthritic pain in her hands and knees due to weather changes recently. She believes her pain is worse with any activity, walking, but her medications as well as heat have been beneficial. She denies any significant constipation as a result of her opioid medications. The patient reports that she was slightly dizzy in the morning with tizanidine 4 mg taken at bedtime. We had started that muscle relaxant at her last visit because her insurance company would not pay for Robaxin any longer and she felt that it was ineffective. The patient also reports she has been unable to get the COVID vaccine. She is immunocompromised and has unable to locate a place where she may obtain the vaccine. She is frustrated by this fact, she has signed up on numerous websites. ALLERGIES: See the complete list in the computer. MEDICATIONS: Oxycodone 10/325 p.r.n., methadone 10 mg at noon, tizanidine, fluoxetine, vitamin D, cranberry, Zofran, turmeric, biotin, zinc, vitamin B12, multivitamin, folic acid, fiber, Amaryl, Caltrate, losartan, amlodipine, alprazolam, Carafate, Prilosec, Plaquenil, diclofenac gel and pravastatin. PQRS: 1. She has significant osteoarthritis in her back and is also being treated for rheumatoid arthritis in multiple joints. 2. Height is 5 feet 4 inches, weight is 118, BMI is 20. Vital signs 132/72, pulse is 100, respirations 16, oxygen sat is 100, pain score 7/10. 3. Fall risk. Complains of slight dizziness, has been utilizing a cane, but does not have it with her today. She has not fallen in the last 3 months. The patient is not on any blood thinners, but does take medicine for hypertension. Opioid therapy is greater than 6 weeks; therefore, an opioid signed contract is on the chart. Risk assessment is low. Functional assessment is 50/70. 4. Recreational drug use, she denies. [place] [address] PAIN MANAGEMENT CONSULTATION Name: BARBIEALEX Keesha Room #: REG [facility] Angelica#: [id number] Admission: 01/07/21 Attend Phys: Khadijah Escobedo Discharge: Date of : 60 Report #: [id number] drink alcohol. According to the prescription monitoring system, the patient is due to fill her medications today, morphine mEq is 90. There is a recent drug screen on the chart. We follow her on a monthly basis. PHYSICAL EXAMINATION: GENERAL: This is alert and orientated, well-developed, well-nourished female who appears older than her stated age, rating her pain score today at 7/10. HEENT: Normocephalic, atraumatic. Extraocular eye muscles are intact. She has numerous broken teeth due to her osteoporosis. She is wearing a mask. NECK: Without adenopathy or JVD. MUSCULOSKELETAL: This is a very kyphotic patient with no scoliosis. She has tenderness in her thoracic and lumbar region as well as multiple joints from her rheumatoid arthritis. No edema noted. Her extremity strength is symmetrical at 5/5. IMPRESSION: 1. History of kyphosis with multiple kyphoplasties from compression fractures. 2. Thoracic and lumbar pain. 3. Rheumatoid arthritis. 4. Osteoporosis. 5. Osteoarthritis affecting multiple joints. 6. Chronic low back pain, post-fusion. 7. Anxiety and depression. 8. Complex medical management utilizing scheduled written opioids. We reviewed the fact that opiate medications are being used to provide analgesia adequate to support activities of daily living, not attempting to achieve a specific pain score on the 0-10 Visual Analog Scale. The current opiate medications are providing sufficient analgesia to allow the patient to participate in activities of daily living. The patient is not exhibiting any aberrant behavior suggestive of drug diversion. The patient is not having any adverse reactions to medications. The patient is not suffering from daytime somnolence or mental acuity changes. The patient is managing opiate-induced constipation with appropriate opoc-pcw-pnphfdj agents and dietary considerations. The patient was counseled on concern for caution with operating a motor vehicle while using opiate medications. A physical exam was performed and the patient's functional status was evaluated. All patients with back pain were advised against the bed rest greater than 4 days and were advised to return to normal activities. Pain score assessment was noted and the treatment plan was reviewed with the patient. All current medications, both prescribed and OTC were reviewed and reconciled on the electronic medical record. Tobacco screening was accomplished and smoking cessation was advised when indicated. BMI was noted and diet/exercise [facility] [address] [place] [address] PAIN MANAGEMENT CONSULTATION Name: BARBIEALEX Keesha Room #: REG ALIA Dominguez#: [id number] Admission: 01/07/21 Attend Phys: Khadijah TENA Claudettealessio Discharge: Date of : 60 Report #: [id number] modification was recommended for all patients following outside normal parameters. I reviewed with the patient today their responsibilities to safeguard prescription medications, reviewed their responsibility to utilize medications only as prescribed by the physician. They are to seek and receive pain medications only from 1 physician group ( [facility]). They are to use 1 pharmacy and keep the clinic informed if they change pharmacies. Their responsibilities include making followup visits in a timely fashion and to avoid abrupt discontinuation of medication usage. Their responsibilities further include bringing their medications (bottles from the pharmacy with residual pills) to the visit for possible confirmation of pill counts and the patient understands it is their responsibility to submit to random drug screens to ensure both that the medications prescribed are present, and that no other controlled substances are present. All prescriptions provided today were generated electronically. PLAN: 1. We discussed treatment options with the patient today due to the fact that the patient had dizziness with 4 mg of tizanidine, I encouraged her to split this dose and taking it several hours before bedtime to see if that helps with her daytime dizziness. The patient did feel that it did help with some of her muscle spasms. No scripts written today. She will utilize medications at home. 2. We will continue her on her methadone 10 mg at noon and oxycodone 10/325 up to 4 tablets a day. Medications will be sent electronically by Dr. Perkins. 3. We did discuss COVID vaccine in depth and tried to find locations for her via the web today. Significant portion of time was spent on this research. I encouraged the patient to go to [facility] today on her way home to see if they have any doses for her COVID vaccine. 4. The patient is seen in collaboration with Dr. Sahil Perkins today. Time spent with the patient in consultation, reviewing pertinent imaging, reviewing recent studies and clinical notes as well as physician reports, physical exam in correlation, physical findings and medical documentation to determine treatments of 14 minutes, time spent in preparation for appointment review and prescription monitoring, reviewing previous records and post-treatment options, reviewing current medications 8 minutes, time spent preparing and sending electronic prescriptions if appropriate and documentation of visit and planned treatment with collaborating physician Dr. Perkins 5 minutes. Total time spent 27 minutes. <ELECTRONICALLY SIGNED> By: Khadijah Escobedo 01/08/21 0713 [id number] Khadijah Escobedo /nt
== END ==
LOC: PAIN 06:54
PROVIDERS: ATTEND Clinical Nurse Specialist Adult Health
DX: M54.5 Low back pain (principal); G89.29 Other chronic pain; M96.1 Postlaminectomy syndrome, not elsewhere classified; M81.0 Age-related osteoporosis without current pathological fracture; M19.90 Unspecified osteoarthritis, unspecified site; F41.9 Anxiety disorder, unspecified; F11.20 Opioid dependence, uncomplicated; Z87.311 Personal history of (healed) other pathological fracture

== ENCOUNTER → 2021-02-23 | Outpatient (CLI) | payer OTHER, BC ==
[~2021-02-23] MED LIST changes: +NORVASC5 MG PO; +POTASSIUM GLUCO99 M2 PO; +TIZANIDINE HCL4 M1 PO; +VITAMIN D250 MC1 PO
--- NOTE | ~2021-02-23 | O ---
[facility] [place] [address] OPERATIVE REPORT Name: ALEX VALENTIN [facility] [id number] Admission: 02/23/21 Attend Phys: Aldair Powell Discharge: Date of : 60 Report #: [id number] THIS REPORT FOR: cc: Yvan Aguirre MD, Neal A. MD McElhinney, Christian C. MD ~ DOC #: [id number] cc: MD Aldair Joe MD DATE OF SERVICE: 02/25/2021 PROCEDURE PERFORMED: Upper endoscopy with esophageal dilation. HISTORY OF PRESENT ILLNESS: The patient is a 60-year-old female with a history of recurrent dysphagia, history of gastroesophageal reflux disease, on omeprazole 20 mg b.i.d. Last upper endoscopy with Schatzki's ring dilation, which was helpful. This was performed on 07/24/2020. She now has recurrent dysphagia. The patient also has a significant kyphosis as well as a history of hiatal hernia. DESCRIPTION OF PROCEDURE: Risks and benefits of the procedure were explained to the patient, those risks including but not limited to bleeding, perforation and the risk of sedation. She understood these risks and gave informed consent. Sedation was given using propofol per anesthesia. Next, using The standard Olympus upper endoscope, the scope was placed in the patient's mouth and advanced under direct vision through the esophagus, stomach and into the second portion of the duodenum. The upper and mid esophagus was normal. In the distal esophagus, once again a moderate Schatzki's ring was again noted. The scope did pass with some mild resistance. Upon entering the stomach, a large hiatal hernia was once again noted. Overall, the gastric mucosa was normal. The pylorus was normal and patent. The duodenal bulb, first and second portion were all normal. The scope was then brought back up into the patient's stomach and a Savary guidewire was inserted through the scope, leaving the guidewire in place as the scope was then withdrawn. Next, a 45-Estonian followed by 48-Estonian Savary dilation of the esophagus was performed. After 48-Estonian, there was a small mucosal tear with no evidence of bleeding. No further dilations were performed. The scope was then withdrawn and the procedure terminated. The patient tolerated the procedure well. IMPRESSION: 1. Schatzki's ring, status post dilation as described above. 2. Large hiatal hernia. 3. Otherwise, normal upper endoscopy. RECOMMENDATIONS: [address] [address] OPERATIVE REPORT Name: BARBIEALEX L Room #: REG Irina Dominguez#: [id number] Admission: 02/23/21 Attend Phys: Aldair Powell Discharge: Date of : 60 Report #: [id number] 1. Observe the patient post-dilation. 2. Continue PPI therapy. 3. I suspect her recurrent dysphagia is likely due to Schatzki's ring; however, a large hiatal hernia may be contributing as well as her significant kyphosis. Thank you for allowing me to participate in her care. Aldair Caldwell MD CCM/JAIME By: [id number] Aldair Caldwell MD /nt
== END ==
LOC: LAB 14:40
PROVIDERS: Student in an Organized Health Care Education/Training Program; ATTEND Specialist
DX: Z01.812 Encounter for preprocedural laboratory examination (principal); Z20.822 Contact with and (suspected) exposure to COVID-19

== ENCOUNTER → 2021-02-25 | Outpatient (CLI) | payer OTHER, BC ==
[~2021-02-25] VITALS: Ht 152.4 cm; Wt 52.6 kg
[~2021-02-25] MED LIST changes: +NARCAN4 MG NARES
--- NOTE | ~2021-02-25 | O ---
[facility] [place] [address] OPERATIVE REPORT Name: ALEX VALENTIN [id number] Admission: 02/25/21 Attend Phys: Aldair Powell Discharge: Date of : 60 Report #: [id number] THIS REPORT FOR: cc: Yvan Aguirre MD, Neal A. MD McElhinney, Christian C. MD ~ DOC #: [id number] cc: MD Aldair Joe MD DATE OF SERVICE: 02/25/2021 PROCEDURE PERFORMED: Upper endoscopy with esophageal dilation. HISTORY OF PRESENT ILLNESS: The patient is a 60-year-old female with a history of recurrent dysphagia, history of gastroesophageal reflux disease, on omeprazole 20 mg b.i.d. Last upper endoscopy with Schatzki's ring dilation, which was helpful. This was performed on 07/24/2020. She now has recurrent dysphagia. The patient also has a significant kyphosis as well as a history of hiatal hernia. DESCRIPTION OF PROCEDURE: Risks and benefits of the procedure were explained to the patient, those risks including but not limited to bleeding, perforation and the risk of sedation. She understood these risks and gave informed consent. Sedation was given using propofol per anesthesia. Next, using The standard Olympus upper endoscope, the scope was placed in the patient's mouth and advanced under direct vision through the esophagus, stomach and into the second portion of the duodenum. The upper and mid esophagus was normal. In the distal esophagus, once again a moderate Schatzki's ring was again noted. The scope did pass with some mild resistance. Upon entering the stomach, a large hiatal hernia was once again noted. Overall, the gastric mucosa was normal. The pylorus was normal and patent. The duodenal bulb, first and second portion were all normal. The scope was then brought back up into the patient's stomach and a Savary guidewire was inserted through the scope, leaving the guidewire in place as the scope was then withdrawn. Next, a 45-Belarusian followed by 48-Belarusian Savary dilation of the esophagus was performed. After 48-Belarusian, there was a small mucosal tear with no evidence of bleeding. No further dilations were performed. The scope was then withdrawn and the procedure terminated. The patient tolerated the procedure well. IMPRESSION: 1. Schatzki's ring, status post dilation as described above. 2. Large hiatal hernia. 3. Otherwise, normal upper endoscopy. RECOMMENDATIONS: [address] [address] OPERATIVE REPORT Name: ALEX VALENTIN Room #: REG Irina Dominguez#: [id number] Admission: 02/25/21 Attend Phys: Aldair Powell Discharge: Date of : 60 Report #: [id number] 1. Observe the patient post-dilation. 2. Continue PPI therapy. 3. I suspect her recurrent dysphagia is likely due to Schatzki's ring; however, a large hiatal hernia may be contributing as well as her significant kyphosis. Thank you for allowing me to participate in her care. Aldair Caldwell MD CCM/JAIME By: [id number] Aldair Caldwell MD /nt
== END | disposition home or self-care (01) ==
LOC: GI 08:35
PROVIDERS: ATTEND Specialist
DX: R13.10 Dysphagia, unspecified (principal); K22.2 Esophageal obstruction; K44.9 Diaphragmatic hernia without obstruction or gangrene; I10 Essential (primary) hypertension; E11.9 Type 2 diabetes mellitus without complications; E78.5 Hyperlipidemia, unspecified; G43.909 Migraine, unspecified, not intractable, without status migrainosus; G47.30 Sleep apnea, unspecified; F32.9 Major depressive disorder, single episode, unspecified; F41.9 Anxiety disorder, unspecified; K21.9 Gastro-esophageal reflux disease without esophagitis; M06.9 Rheumatoid arthritis, unspecified; M81.0 Age-related osteoporosis without current pathological fracture; H40.9 Unspecified glaucoma; Z98.890 Other specified postprocedural states; Z79.899 Other long term (current) drug therapy; Z87.891 Personal history of nicotine dependence; Z86.73 Personal history of transient ischemic attack (TIA), and cerebral infarction without residual deficits; Z88.2 Allergy status to sulfonamides; Z90.710 Acquired absence of both cervix and uterus; Z85.820 Personal history of malignant melanoma of skin; Z88.8 Allergy status to other drugs, medicaments and biological substances
CPT/HCPCS: 62110; 62900

== ENCOUNTER → 2021-03-06 | Outpatient (CLI) | payer OTHER, BC ==
[~2021-03-06] VITALS: Ht 152.4 cm; Wt 51.1 kg
[2021-03-06 10:16] VITALS: BP 131/76
--- NOTE | 2021-03-06 10:22 | NUR ---
Pain Clinic Assessment: 1. History of Osteoarthritis: BACK History of Rheumatoid Arthritis: YES HANDS,WRISTS, FEET Left Upper Extremity Right Lower Extremity Right Upper Extremity 2. Height: 5 ft. 0 in. 152.4 cm. Weight: 112.6 lb. oz. 51.075 kg. Patient's BMI: 22.0 3. Vital Signs: BP: 131/76 Pulse: 103 Resp: 18 Temp: 02 Sat: 95 ECG Mon: 4. Pain Intensity: 4 5. Fall Risk: Dizziness: N Needs help standing or walking: N Fallen in the last 3 months: N Fall risk comments: 6. Patient on Blood Thinner: None 7. History of Hypertension: Y 8. Opioid Therapy greater than 6 weeks: Y Opiate Contract Signed: 12/22/16 9. Risk Assessment Tool Provided: 2-LOW 10. Functional Assessment Tool: 11. Recreational Drug Use: Never Drug Type: Tobacco Use: Former Smoker Tobacco Type: Amount or Packs/day: How Many Years: Alcohol Use: No Frequency: Quant:
== END ==
LOC: PAIN 07:12
PROVIDERS: ATTEND Clinical Nurse Specialist Adult Health
DX: M54.5 Low back pain (principal); G89.29 Other chronic pain; I10 Essential (primary) hypertension; Z79.899 Other long term (current) drug therapy; Z79.84 Long term (current) use of oral hypoglycemic drugs; Z87.891 Personal history of nicotine dependence

== ENCOUNTER → 2021-04-03 | Outpatient (CLI) | payer OTHER, BC ==
[~2021-04-03] VITALS: Ht 152.4 cm; Wt 52.0 kg
[2021-04-03 10:17] VITALS: BP 127/76
--- NOTE | 2021-04-03 10:22 | NUR ---
Pain Clinic Assessment: 1. History of Osteoarthritis: BACK History of Rheumatoid Arthritis: YES HANDS,WRISTS, FEET Left Upper Extremity Right Lower Extremity Right Upper Extremity 2. Height: 5 ft. 0 in. 152.4 cm. Weight: 114.6 lb. oz. 51.982 kg. Patient's BMI: 22.4 3. Vital Signs: BP: 127/76 Pulse: 97 Resp: 20 Temp: 02 Sat: 100 ECG Mon: 4. Pain Intensity: 5 5. Fall Risk: Dizziness: N Needs help standing or walking: N Fallen in the last 3 months: N Fall risk comments: 6. Patient on Blood Thinner: None 7. History of Hypertension: Y 8. Opioid Therapy greater than 6 weeks: Y Opiate Contract Signed: 12/22/16 9. Risk Assessment Tool Provided: 2-LOW 10. Functional Assessment Tool: 11. Recreational Drug Use: Never Drug Type: Tobacco Use: Former Smoker Tobacco Type: Amount or Packs/day: How Many Years: Alcohol Use: No Frequency: Quant:
== END ==
LOC: PAIN 07:09
PROVIDERS: ATTEND Clinical Nurse Specialist Adult Health
DX: M06.9 Rheumatoid arthritis, unspecified (principal); M40.299 Other kyphosis, site unspecified; M19.90 Unspecified osteoarthritis, unspecified site; M54.6 Pain in thoracic spine; M54.5 Low back pain; M81.0 Age-related osteoporosis without current pathological fracture; F41.9 Anxiety disorder, unspecified; F32.9 Major depressive disorder, single episode, unspecified; Z79.891 Long term (current) use of opiate analgesic; Z79.899 Other long term (current) drug therapy

== ENCOUNTER → 2021-05-01 | Outpatient (CLI) | payer OTHER, BC ==
[~2021-05-01] VITALS: Ht 152.4 cm; Wt 52.2 kg
[2021-05-01 10:45] VITALS: BP 151/79
--- NOTE | 2021-05-01 10:51 | NUR ---
Pain Clinic Assessment: 1. History of Osteoarthritis: BACK History of Rheumatoid Arthritis: YES HANDS,WRISTS, FEET Left Upper Extremity Right Lower Extremity Right Upper Extremity 2. Height: 5 ft. 0 in. 152.4 cm. Weight: 115.0 lb. oz. 52.164 kg. Patient's BMI: 22.5 3. Vital Signs: BP: 151/79 Pulse: 87 Resp: 16 Temp: 02 Sat: 97 ECG Mon: 4. Pain Intensity: 6 5. Fall Risk: Dizziness: N Needs help standing or walking: N Fallen in the last 3 months: N Fall risk comments: 6. Patient on Blood Thinner: None 7. History of Hypertension: Y 8. Opioid Therapy greater than 6 weeks: Y Opiate Contract Signed: 12/22/16 9. Risk Assessment Tool Provided: 2-LOW 10. Functional Assessment Tool: 11. Recreational Drug Use: Never Drug Type: Tobacco Use: Former Smoker Tobacco Type: Amount or Packs/day: How Many Years: Alcohol Use: No Frequency: Quant:
== END ==
LOC: PAIN 07:01
PROVIDERS: ATTEND Anesthesiology Pain Medicine
DX: G89.29 Other chronic pain (principal); M54.5 Low back pain; I10 Essential (primary) hypertension; K21.9 Gastro-esophageal reflux disease without esophagitis; G43.909 Migraine, unspecified, not intractable, without status migrainosus; M06.9 Rheumatoid arthritis, unspecified; M81.0 Age-related osteoporosis without current pathological fracture; M19.90 Unspecified osteoarthritis, unspecified site; F41.8 Other specified anxiety disorders; Z98.1 Arthrodesis status; Z88.5 Allergy status to narcotic agent; Z90.710 Acquired absence of both cervix and uterus; Z88.8 Allergy status to other drugs, medicaments and biological substances; Z79.891 Long term (current) use of opiate analgesic; Z79.899 Other long term (current) drug therapy; Z86.73 Personal history of transient ischemic attack (TIA), and cerebral infarction without residual deficits; Z87.891 Personal history of nicotine dependence

== ENCOUNTER 2021-05-12 02:27 | Emergency (ER) | payer OTHER, BC ==
[~2021-05-12] VITALS: Ht 152.4 cm; Wt 52.2 kg
[2021-05-12 03:21] LABS: ABSOLUTE NEUTROPHILS 5.2 thou/uL (1.4-8.2); BASOPHILS 0.8 % (0.0-2.0); HEMOGLOBIN 12.8 gm/dL (12.0-15.0); LYMPHOCYTES 36.8 % (24.0-44.0); MCH 32.4 pg (26.0-34.0); MCHC 33.8 g/dL (28.0-37.0); MCV 95.8 fL (80.0-100.0); PLATELET COUNT 303 thou/uL (150-400); POLYS 53.4 % (36.0-66.0); RBC 3.96 mil/uL (4.20-5.00); RDW 13.4 % (10.5-14.5); WBC 9.7 thou/uL (4.0-11.0)
[2021-05-12 03:28] LABS: ANION GAP 6 mmol/L (7-16); BUN 14 mg/dL (7-18); CALCIUM 9.4 mg/dL (8.5-10.1); CHLORIDE 102 mmol/L (98-107); CO2 32 mmol/L (21-32); CREATININE 1.1 mg/dL (0.6-1.0); GLUCOSE 109 mg/dL (74-106); POTASSIUM 3.8 mmol/L (3.5-5.1); SODIUM 140 mmol/L (136-145)
[2021-05-12 03:38] LABS: ALBUMIN 3.7 g/dL (3.4-5.0); LIPASE 84 U/L (73-393); SGOT 25 U/L (15-37); SGPT 30 U/L (14-59); TOTAL BILIRUBIN 0.3 mg/dL (0.2-1.0); TOTAL PROTEIN 7.1 g/dL (6.4-8.2); TROPONIN-I <0.06 ng/mL (<0.06)
[2021-05-12] MEDS ORDERED: MACROBID 100 M100 M1 PO (06:41)
[2021-05-12 06:48] VITALS: BP 163/86
--- NOTE | 2021-05-12 07:17 | EKG ---
[place] [address] [employer] [place] [address] ELECTROCARDIOGRAM REPORT Name: BARBIEALEX L [id number] Admission: 05/12/21 Attend Phys: Discharge: 05/12/21 Date of : 60 Report #: [id number] [facility] ED Test Date: 2021-05-12 Test Time: 03:54:25 Pat Name: ALEX VALENTIN Department: Room: Gender: F [employer] Machine Tender: bogdan : 1960 Requested By: Cali Aguayo Order Number: [id number] MD: Ab Rivas Measurements Intervals [place] Rate: 93 P: 2 CO: 155 QRS: -36 QRSD: 88 T: 1 QT: 324 QTc: 403 Interpretive Statements Sinus rhythm Abnormal R-wave progression, late transition Inferior infarct, old Compared to ECG 06/10/2018 16:49:58 Poor R-wave progression no longer present Myocardial infarct finding still present Electronically Signed On 05-12-2021 7:17:40 CDT by Ab Rivas [email or web address] <ELECTRONICALLY SIGNED> By: Ab Rivas MD, [facility] 05/12/21 [id number] Ab Rivas MD, FAC /EPI
== END 2021-05-12 07:10 | disposition home or self-care (01) ==
LOC: ER 02:27
PROVIDERS: Emergency Medicine
DX: K44.9 Diaphragmatic hernia without obstruction or gangrene (principal); F11.23 Opioid dependence with withdrawal; E11.9 Type 2 diabetes mellitus without complications; I10 Essential (primary) hypertension; K21.9 Gastro-esophageal reflux disease without esophagitis; M06.9 Rheumatoid arthritis, unspecified; G43.909 Migraine, unspecified, not intractable, without status migrainosus; M81.0 Age-related osteoporosis without current pathological fracture; Z90.710 Acquired absence of both cervix and uterus; Z98.890 Other specified postprocedural states; Z88.2 Allergy status to sulfonamides; Z88.1 Allergy status to other antibiotic agents; Z88.8 Allergy status to other drugs, medicaments and biological substances

== ENCOUNTER → 2021-05-29 | Outpatient (CLI) | payer OTHER, BC ==
[~2021-05-29] VITALS: Ht 152.4 cm; Wt 49.9 kg
[~2021-05-29] MED LIST changes: +MACROBID 100 M100 M1 PO
[2021-05-29 10:59] VITALS: BP 139/65
--- NOTE | 2021-05-29 11:07 | NUR ---
Pain Clinic Assessment: 1. History of Osteoarthritis: BACK History of Rheumatoid Arthritis: YES HANDS,WRISTS, FEET Left Upper Extremity Right Lower Extremity Right Upper Extremity 2. Height: 5 ft. 0 in. 152.4 cm. Weight: 110.0 lb. oz. 49.896 kg. Patient's BMI: 21.5 3. Vital Signs: BP: 139/65 Pulse: 77 Resp: 96 Temp: 02 Sat: 14 ECG Mon: 4. Pain Intensity: 7 5. Fall Risk: Dizziness: N Needs help standing or walking: N Fallen in the last 3 months: N Fall risk comments: 6. Patient on Blood Thinner: None 7. History of Hypertension: Y 8. Opioid Therapy greater than 6 weeks: Y Opiate Contract Signed: 12/22/16 9. Risk Assessment Tool Provided: 2-LOW 10. Functional Assessment Tool: 11. Recreational Drug Use: Never Drug Type: Tobacco Use: Never Smoker Tobacco Type: Amount or Packs/day: How Many Years: Alcohol Use: No Frequency: Quant:
== END ==
LOC: PAIN 06:53
PROVIDERS: ATTEND Clinical Nurse Specialist Adult Health
DX: M54.6 Pain in thoracic spine (principal); M54.5 Low back pain; M06.9 Rheumatoid arthritis, unspecified; M81.0 Age-related osteoporosis without current pathological fracture; G89.29 Other chronic pain; M19.90 Unspecified osteoarthritis, unspecified site; F41.9 Anxiety disorder, unspecified; F32.9 Major depressive disorder, single episode, unspecified; Z79.891 Long term (current) use of opiate analgesic; Z79.899 Other long term (current) drug therapy

== ENCOUNTER → 2021-06-26 | Outpatient (CLI) | payer OTHER, BC ==
[~2021-06-26] VITALS: Ht 152.4 cm; Wt 50.7 kg
[2021-06-26 09:42] VITALS: BP 118/71
--- NOTE | 2021-06-26 09:47 | NUR ---
Pain Clinic Assessment: 1. History of Osteoarthritis: BACK History of Rheumatoid Arthritis: YES HANDS,WRISTS, FEET Left Upper Extremity Right Lower Extremity Right Upper Extremity 2. Height: 5 ft. 0 in. 152.4 cm. Weight: 111.8 lb. oz. 50.712 kg. Patient's BMI: 21.8 3. Vital Signs: BP: 118/71 Pulse: 97 Resp: 16 Temp: 02 Sat: 97 ECG Mon: 4. Pain Intensity: 5 5. Fall Risk: Dizziness: N Needs help standing or walking: N Fallen in the last 3 months: N Fall risk comments: 6. Patient on Blood Thinner: None 7. History of Hypertension: Y 8. Opioid Therapy greater than 6 weeks: Y Opiate Contract Signed: 12/22/16 9. Risk Assessment Tool Provided: 2-LOW 10. Functional Assessment Tool: 11. Recreational Drug Use: Never Drug Type: Tobacco Use: Never Smoker Tobacco Type: Amount or Packs/day: How Many Years: Alcohol Use: No Frequency: Quant:
== END ==
LOC: PAIN 08:53
PROVIDERS: ATTEND Clinical Nurse Specialist Adult Health
DX: M40.209 Unspecified kyphosis, site unspecified (principal); M19.90 Unspecified osteoarthritis, unspecified site; M54.9 Dorsalgia, unspecified; F41.9 Anxiety disorder, unspecified; F32.9 Major depressive disorder, single episode, unspecified; Z79.891 Long term (current) use of opiate analgesic; Z79.899 Other long term (current) drug therapy

== ENCOUNTER → 2021-07-29 | Outpatient (CLI) | payer OTHER, BC ==
[~2021-07-29] VITALS: Ht 154.9 cm; Wt 48.5 kg
[~2021-07-29] MED LIST changes: +ZANAFLEX4 M2 PO
[2021-07-29 09:52] VITALS: BP 135/74
--- NOTE | 2021-07-29 09:57 | NUR ---
Pain Clinic Assessment: 1. History of Osteoarthritis: BACK History of Rheumatoid Arthritis: YES HANDS,WRISTS, FEET Left Upper Extremity Right Lower Extremity Right Upper Extremity 2. Height: 5 ft. 1 in. 154.9 cm. Weight: 107.0 lb. oz. 48.535 kg. Patient's BMI: 20.2 3. Vital Signs: BP: 135/74 Pulse: 108 Resp: 14 Temp: 02 Sat: 96 ECG Mon: 4. Pain Intensity: 5 5. Fall Risk: Dizziness: N Needs help standing or walking: N Fallen in the last 3 months: N Fall risk comments: 6. Patient on Blood Thinner: None 7. History of Hypertension: Y 8. Opioid Therapy greater than 6 weeks: Y Opiate Contract Signed: 12/22/16 9. Risk Assessment Tool Provided: 2-LOW 10. Functional Assessment Tool: 11. Recreational Drug Use: Never Drug Type: Tobacco Use: Never Smoker Tobacco Type: Amount or Packs/day: How Many Years: Alcohol Use: No Frequency: Quant:
== END ==
LOC: PAIN 07-24 06:52
PROVIDERS: ATTEND Clinical Nurse Specialist Adult Health
DX: G89.29 Other chronic pain (principal); M54.5 Low back pain; M54.14 Radiculopathy, thoracic region; K44.9 Diaphragmatic hernia without obstruction or gangrene; M81.0 Age-related osteoporosis without current pathological fracture; M19.91 Primary osteoarthritis, unspecified site; F41.8 Other specified anxiety disorders; Z87.81 Personal history of (healed) traumatic fracture; Z88.8 Allergy status to other drugs, medicaments and biological substances; Z79.899 Other long term (current) drug therapy

== ENCOUNTER → 2021-08-06 | Outpatient (CLI) | payer OTHER, BC | LOC: HYPER 09:50 | PROVIDERS: ATTEND Emergency Medicine | DX: S81.811D Laceration without foreign body, right lower leg, subsequent encounter (principal); E11.622 Type 2 diabetes mellitus with other skin ulcer; L97.812 Non-pressure chronic ulcer of other part of right lower leg with fat layer exposed; E11.39 Type 2 diabetes mellitus with other diabetic ophthalmic complication; H42 Glaucoma in diseases classified elsewhere; E78.5 Hyperlipidemia, unspecified; I10 Essential (primary) hypertension; G47.33 Obstructive sleep apnea (adult) (pediatric); G25.81 Restless legs syndrome; R26.89 Other abnormalities of gait and mobility; R60.9 Edema, unspecified; K21.9 Gastro-esophageal reflux disease without esophagitis; M85.80 Other specified disorders of bone density and structure, unspecified site; M05.80 Other rheumatoid arthritis with rheumatoid factor of unspecified site; F32.9 Major depressive disorder, single episode, unspecified; F41.9 Anxiety disorder, unspecified; Z87.891 Personal history of nicotine dependence; Z90.710 Acquired absence of both cervix and uterus ==

== ENCOUNTER → 2021-08-13 | Outpatient (CLI) | payer OTHER, BC | LOC: HYPER 07:25 | PROVIDERS: ATTEND Emergency Medicine | DX: S81.811D Laceration without foreign body, right lower leg, subsequent encounter (principal); E11.622 Type 2 diabetes mellitus with other skin ulcer; L97.811 Non-pressure chronic ulcer of other part of right lower leg limited to breakdown of skin; M05.80 Other rheumatoid arthritis with rheumatoid factor of unspecified site; R26.89 Other abnormalities of gait and mobility; R60.9 Edema, unspecified; M06.9 Rheumatoid arthritis, unspecified; K44.9 Diaphragmatic hernia without obstruction or gangrene; L84 Corns and callosities; K21.9 Gastro-esophageal reflux disease without esophagitis; M81.0 Age-related osteoporosis without current pathological fracture; E11.39 Type 2 diabetes mellitus with other diabetic ophthalmic complication; H42 Glaucoma in diseases classified elsewhere; E78.5 Hyperlipidemia, unspecified; G47.33 Obstructive sleep apnea (adult) (pediatric); G25.81 Restless legs syndrome; F41.9 Anxiety disorder, unspecified; F32.9 Major depressive disorder, single episode, unspecified; Z87.891 Personal history of nicotine dependence; Z98.890 Other specified postprocedural states; Z79.84 Long term (current) use of oral hypoglycemic drugs; Z79.899 Other long term (current) drug therapy; X58.XXXD Exposure to other specified factors, subsequent encounter ==

== ENCOUNTER → 2021-08-26 | Outpatient (CLI) | payer OTHER, BC ==
[~2021-08-26] VITALS: Ht 152.4 cm; Wt 48.9 kg
[2021-08-26 11:08] VITALS: BP 98/59
--- NOTE | 2021-08-26 11:22 | NUR ---
Pain Clinic Assessment: 1. History of Osteoarthritis: BACK History of Rheumatoid Arthritis: YES HANDS,WRISTS, FEET Left Upper Extremity Right Lower Extremity Right Upper Extremity 2. Height: 5 ft. 0 in. 152.4 cm. Weight: 107.8 lb. oz. 48.898 kg. Patient's BMI: 21.1 3. Vital Signs: BP: 98/59 Pulse: 98 Resp: 20 Temp: 02 Sat: 96 ECG Mon: 4. Pain Intensity: 7 WITHOUT MEDS 5 WITH MED 5. Fall Risk: Dizziness: N Needs help standing or walking: N Fallen in the last 3 months: N Fall risk comments: 6. Patient on Blood Thinner: None 7. History of Hypertension: Y 8. Opioid Therapy greater than 6 weeks: Y Opiate Contract Signed: 12/22/16 9. Risk Assessment Tool Provided: 2-LOW 10. Functional Assessment Tool: 50/70 11. Recreational Drug Use: Never Drug Type: Tobacco Use: Never Smoker Tobacco Type: Amount or Packs/day: How Many Years: Alcohol Use: No Frequency: Quant:
== END ==
LOC: PAIN 07:14
PROVIDERS: ATTEND Clinical Nurse Specialist Adult Health
DX: G89.29 Other chronic pain (principal); M54.50 Low back pain, unspecified; M54.6 Pain in thoracic spine; K44.9 Diaphragmatic hernia without obstruction or gangrene; M19.09 Primary osteoarthritis, other specified site; F41.8 Other specified anxiety disorders; Z88.8 Allergy status to other drugs, medicaments and biological substances; Z88.1 Allergy status to other antibiotic agents; Z79.899 Other long term (current) drug therapy

== ENCOUNTER → 2021-09-23 | Outpatient (CLI) | payer OTHER, BC ==
[~2021-09-23] VITALS: Ht 152.4 cm; Wt 47.2 kg
[~2021-09-23] MED LIST changes: +ACID CONTROLLER20 MG PO; +REGLAN 10 MG TA10 MG PO
[2021-09-23 11:13] VITALS: BP 113/61
--- NOTE | 2021-09-23 11:18 | NUR ---
Pain Clinic Assessment: 1. History of Osteoarthritis: BACK History of Rheumatoid Arthritis: YES HANDS,WRISTS, FEET Left Upper Extremity Right Lower Extremity Right Upper Extremity 2. Height: 5 ft. 0 in. 152.4 cm. Weight: 104.0 lb. oz. 47.174 kg. Patient's BMI: 20.3 3. Vital Signs: BP: 113/61 Pulse: 69 Resp: 16 Temp: 02 Sat: 97 ECG Mon: 4. Pain Intensity: 6 5. Fall Risk: Dizziness: N Needs help standing or walking: N Fallen in the last 3 months: N Fall risk comments: 6. Patient on Blood Thinner: None 7. History of Hypertension: Y 8. Opioid Therapy greater than 6 weeks: Y Opiate Contract Signed: 12/22/16 9. Risk Assessment Tool Provided: 2-LOW 10. Functional Assessment Tool: 11. Recreational Drug Use: Never Drug Type: Tobacco Use: Never Smoker Tobacco Type: Amount or Packs/day: How Many Years: Alcohol Use: No Frequency: Quant:
== END ==
LOC: PAIN 10:19
PROVIDERS: ATTEND Anesthesiology Pain Medicine
DX: K44.9 Diaphragmatic hernia without obstruction or gangrene (principal); M54.59 Other low back pain; M54.6 Pain in thoracic spine; M06.9 Rheumatoid arthritis, unspecified; G89.29 Other chronic pain; M19.90 Unspecified osteoarthritis, unspecified site; F41.8 Other specified anxiety disorders; Z88.8 Allergy status to other drugs, medicaments and biological substances; Z88.1 Allergy status to other antibiotic agents; Z79.899 Other long term (current) drug therapy

== ENCOUNTER → 2021-10-21 | Outpatient (CLI) | payer OTHER, BC ==
[~2021-10-21] VITALS: Ht 152.4 cm; Wt 47.6 kg
[2021-10-21 11:02] VITALS: BP 124/74
--- NOTE | 2021-10-21 11:04 | NUR ---
Pain Clinic Assessment: 1. History of Osteoarthritis: BACK History of Rheumatoid Arthritis: YES HANDS,WRISTS, FEET Left Upper Extremity Right Lower Extremity Right Upper Extremity 2. Height: 5 ft. 0 in. 152.4 cm. Weight: 105.0 lb. oz. 47.628 kg. Patient's BMI: 20.5 3. Vital Signs: BP: 124/74 Pulse: 96 Resp: 18 Temp: 02 Sat: 96 ECG Mon: 4. Pain Intensity: 6 5. Fall Risk: Dizziness: N Needs help standing or walking: N Fallen in the last 3 months: N Fall risk comments: 6. Patient on Blood Thinner: None 7. History of Hypertension: Y 8. Opioid Therapy greater than 6 weeks: Y Opiate Contract Signed: 12/22/16 9. Risk Assessment Tool Provided: 2-LOW 10. Functional Assessment Tool: 11. Recreational Drug Use: Never Drug Type: Tobacco Use: Never Smoker Tobacco Type: Amount or Packs/day: How Many Years: Alcohol Use: No Frequency: Quant:
== END ==
LOC: PAIN 07:04
PROVIDERS: ATTEND Clinical Nurse Specialist Adult Health
DX: M54.6 Pain in thoracic spine (principal); M54.50 Low back pain, unspecified; G89.29 Other chronic pain; K44.9 Diaphragmatic hernia without obstruction or gangrene; M06.8A Other specified rheumatoid arthritis, other specified site; M81.8 Other osteoporosis without current pathological fracture; M19.90 Unspecified osteoarthritis, unspecified site; F41.9 Anxiety disorder, unspecified; Z88.8 Allergy status to other drugs, medicaments and biological substances; Z79.899 Other long term (current) drug therapy